=== PATIENT | male | born 1945 | race Caucasian/White ===

== ENCOUNTER 2021-12-29 21:05 | Observation (INO) | payer MEDICARE ==
--- NOTE | 2021-12-29 21:48 | ERPHSYRPT ---
- History of Present Illness Time Seen by Provider: 12/29/21 21:48 Source: patient, family Exam Limitations: no limitations Physician History: This is a 76-year-old white male patient of Dr. Tomas who was diagnosed with pancreatic cancer in October 2020. Patient also was having some renal insufficiency and saw Dr. Mccormick (quality associate) today and blood work was obtained. Patient was called because he had a very high blood sugar level over 600. Patient states that the symptoms that he has had recently is increased in thirst and frequent urination. Patient has a history of elevated cholesterol, hypothyroidism and hypertension. In addition he has a history of [id number] diabetes. He has no complaints of headache, chest pain or abdominal pain. He has had no nausea vomiting or diarrhea. Timing/Duration: today Severity: moderate Associated Symptoms: other (Thirst and increased urination) Allergies/Adverse Reactions: No Known Drug Allergies Allergy (Verified 12/29/21 21:22) Home Medications: Amlodipine Besylate 5 mg [Norvasc 5 mg] 5 mg PO DAILY 07/06/15 [History] Metoprolol Tartrate 100 mg PO DAILY 07/06/15 [History] Cholecalciferol (Vitamin D3) [Vitamin D3] 1,000 mcg PO DAILY 12/29/21 [History] Glipizide 10 mg [Glucotrol 10 MG] 10 mg PO DAILY 12/29/21 [History] Hydralazine HCl 10 mg PO DAILY 12/29/21 [History] Levothyroxine Sodium 50 Mcg [Synthroid 50 Mcg] 50 mcg PO DAILY 12/29/21 [History] Lipase/Protease/Amylase [Juarez Almendarez 6,000 Unit Capsule] 1 tab PO UD 12/29/21 [History] Magnesium Oxide [Magnesium] 250 mg PO BID 12/29/21 [History] Multivitamin 1 tab PO DAILY 12/29/21 [History] Potassium Chloride 40 meq PO TID 12/29/21 [History] Pravastatin Sodium 20 mg PO DAILY 12/29/21 [History] Prednisone 10 mg [Deltasone 10 mg] 10 mg PO DAILY 12/29/21 [History] Travel Risk - International Travel Have you traveled outside of the country in past 3 weeks: No - Coronavirus Screening Are you exhibiting any of the following symptoms?: No Close contact with a COVID-19 positive Pt in past 14-21 Days: No - Review of Systems Constitutional: No Symptoms Eyes: No Symptoms Ears, Nose, & Throat: No Symptoms Respiratory: No Symptoms Cardiac: No Symptoms Abdominal/Gastrointestinal: No Symptoms Genitourinary Symptoms: Other (Increased urination) Musculoskeletal: No Symptoms Skin: No Symptoms Neurological: No Symptoms Psychological: No Symptoms Endocrine: Polyuria, Polydipsia Hematologic/Lymphatic: No Symptoms Immunological/Allergic: No Symptoms All Other Systems: Reviewed and Negative - Past Medical History Pertinent Past Medical History: Yes Neurological History: No Pertinent History ENT History: No Pertinent History Cardiac History: High Cholesterol, Hypertension Respiratory History: Other Endocrine Medical History: Hypothyroidism Musculoskeletal History: No Pertinent History GI Medical History: No Pertinent History History: No Pertinent History Psycho-Social History: No Pertinent History Male Reproductive Disorders: No Pertinent History Other Medical History: sarcoidosis-effects his breathing takes daily prednisone 5mg - Past Surgical History Past Surgical History: Yes Neuro Surgical History: No Pertinent History Cardiac: No Pertinent History Respiratory: Other Gastrointestinal: No Pertinent History Genitourinary: No Pertinent History Musculoskeletal: No Pertinent History Male Surgical History: No Pertinent History Other Surgical History: 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 - Social History Smoking Status: Never smoker Exposure to second hand smoke: No Drug Use: none - Nursing Vital Signs Nursing Vital Signs: Initial Vital Signs Temperature 97.8 F 12/29/21 21:23 Pulse Rate 68 12/29/21 21:23 Respiratory Rate 18 12/29/21 21:23 Blood Pressure 151/88 12/29/21 21:23 O2 Sat by Pulse Oximetry 98 12/29/21 21:23 Pain Scale Pain Intensity 0 - Physical Exam General Appearance: no apparent distress, alert, thin Eye Exam: PERRL/EOMI, eyes nml inspection Ears, Nose, Throat Exam: normal ENT inspection, moist mucous membranes Neck Exam: normal inspection, non-tender, supple, full range of motion Respiratory Exam: normal breath sounds, lungs clear, airway intact, No chest tenderness, No respiratory distress Cardiovascular Exam: regular rate/rhythm, normal heart sounds, normal peripheral pulses Gastrointestinal/Abdomen Exam: soft, normal bowel sounds, No tenderness Rectal Exam: not done Back Exam: normal inspection, normal range of motion, No CVA tenderness, No vertebral tenderness Extremity Exam: normal inspection, normal range of motion, pelvis stable Neurologic Exam: alert, oriented x 3, cooperative, sheet layer II-XII nml as tested, normal mood/affect, nml cerebellar function, nml station & gait, sensation nml Skin Exam: normal color, warm, dry Lymphatic Exam: No adenopathy SpO2 Interpretation: normal O2 Delivery: Room Air - Course Nursing assessment & vital signs reviewed: Yes EKG Interpreted by Me: RATE (60), Sinus Rhythm, NORMAL AXIS, NORMAL INTERVALS, Right Bundle Branch Block, NORMAL ST-T, Other (No acute ischemic changes on today's EKG.) Ordered Tests: Active Orders 24 hr Category Date Time Status EKG-ER Only STAT Care 12/30/21 00:43 Active IV Insertion STAT Care 12/29/21 22:40 Active ABG [ARTERIAL BLOOD GASES] Stat Lab 12/30/21 00:20 Completed BMP Stat Lab 12/30/21 01:19 Completed CBC W DIFF Stat Lab 12/29/21 23:00 Completed CMP Stat Lab 12/29/21 23:00 Completed Lactic Acid Stat Lab 12/30/21 01:09 Completed Lactic Acid Urgent Lab 12/29/21 23:00 Completed POCT GLUCOSE Stat Lab 12/30/21 00:20 Completed POCT GLUCOSE Stat Lab 12/30/21 02:13 Completed UA W/RFX CULTURE Stat Lab 12/29/21 22:43 Completed Transfer Order Routine Transfer 12/30/21 Ordered Medication Summary Discontinued Medications Generic Name Dose Route Start Last Admin Trade Name Chanduq PRN Reason Stop Dose Admin Calcium Gluconate 1,000 mg 12/30/21 00:41 12/30/21 01:04 Calcium Gluconate 1000 Mg/10 Ml Vial IV 12/30/21 00:42 1,000 mg STAT ONE Administration Calcium Gluconate Confirm 12/30/21 01:03 Calcium Gluconate 1000 Mg/10 Ml Vial Administered 12/30/21 01:04 Dose 1,000 mg IV .STK-MED ONE Sodium Chloride 1,000 mls @ 999 mls/hr 12/29/21 22:40 12/29/21 23:41 Sodium Chloride 0.9% 1000 Ml IV 12/29/21 23:40 Infused .Q1H1M STA Infusion Sodium Chloride Confirm 12/29/21 22:44 Sodium Chloride 0.9% 1000 Ml Administered 12/29/21 22:45 Dose 1,000 mls @ ud .ROUTE .STK-MED ONE Sodium Chloride 1,000 mls @ 999 mls/hr 12/30/21 00:45 12/30/21 02:11 Sodium Chloride 0.9% 1000 Ml IV 12/30/21 01:45 Infused .Q1H1M STA Infusion Sodium Chloride Confirm 12/30/21 01:03 Sodium Chloride 0.9% 1000 Ml Administered 12/30/21 01:04 Dose 1,000 mls @ ud .ROUTE .STK-MED ONE Insulin Human Regular 15 unit 12/29/21 23:08 12/29/21 23:32 Insulin Regular, Human 1 Unit IV 12/29/21 23:09 15 unit STAT ONE Administration Insulin Human Regular Confirm 12/29/21 23:28 Insulin Regular, Human 1 Unit Administered 12/29/21 23:29 Dose 15 unit .ROUTE .STK-MED ONE Sodium Bicarbonate 50 meq 12/30/21 00:43 12/30/21 01:06 Sodium Bicarbonate 1 Meq/Ml 50ml Syringe IV 12/30/21 00:44 50 meq STAT ONE Administration Sodium Bicarbonate Confirm 12/30/21 01:03 Sodium Bicarbonate 1 Meq/Ml 50ml Vial Administered 12/30/21 01:04 Dose 50 meq .ROUTE .STK-MED ONE Sodium Bicarbonate Confirm 12/30/21 01:06 Sodium Bicarbonate 1 Meq/Ml 50ml Syringe Administered 12/30/21 01:07 Dose 50 meq IV .STK-MED ONE Lab/Rad Data: Laboratory Result Diagrams 12/29/21 23:00 12/30/21 01:19 Laboratory Results 12/30/21 12/30/21 12/30/21 Range/Units 02:13 01:19 01:09 WBC (4.0-10.5) x10^3/uL RBC (4.1-5.6) x10^6/uL Hgb (12.5-18.0) g/dL Hct (42-50) % MCV (78-100) fL MCH (26-32) pg MCHC (32-36) g/dL RDW (11.5-14.0) % Plt Count (150-450) x10^3/uL MPV (7.5-11.0) fL Gran % (36.0-66.0) % Immature Gran % (Auto) (0.00-0.4) % Nucleat RBC Rel Count (0.00-0.1) % Eos # (Auto) (0-0.5) x10^3/uL Immature Gran # (Auto) (0.00-0.03) x10^3u/L Absolute Lymphs (auto) (1.0-4.6) x10^3/uL Absolute Monos (auto) (0.0-1.3) x10^3/uL Absolute Nucleated RBC (0.00-0.01) x10^3u/L Lymphocytes % (24.0-44.0) % Monocytes % (0.0-12.0) % Eosinophils % (0.00-5.0) % Basophils % (0.0-0.4) % Absolute Granulocytes (1.4-6.9) x10^3/uL Basophils # (0-0.4) x10^3/uL Puncture Site pCO2 (35-45) mmHg pO2 (75-100) mmHg Base Excess (-2.0-2.0) O2 Saturation (94-100) g/dF ABG pH (7.35-7.45) ABG HCO3 (22-28) ABG O2 Sat (Measured) (95-100) % Carlitos Test A-a Gradient a/A Ratio Hemoglobin Carboxyhemoglobin (0.0-6.9) % THgb Methemoglobin (1.4-1.5) % Temperature C POC O2 Flow Rate % Sodium 134 L D (137-145) mmol/L Potassium 4.7 (3.5-5.1) mmol/L Chloride 109 H (98-107) mmol/L Carbon Dioxide 16 L* (22-30) mmol/L Anion Gap 15.0 (5-15) MEQ/L BUN 29 H (9-20) mg/dL Creatinine 1.43 H (0.66-1.25) mg/dL Estimated GFR 51.1 ML/MIN Glucose 344 H (74-106) mg/dL POC Glucometer 282 H (74 to 106) mg/dL Lactic Acid 4.5 H (0.4-2.0) Calcium 9.6 (8.4-10.2) mg/dL Total Bilirubin (0.2-1.3) mg/dL AST (17-59) U/L ALT (0-50) U/L Alkaline Phosphatase (38-126) U/L Serum Total Protein (6.3-8.2) g/dL Albumin (3.5-5.0) g/dL Urinalys Dipstick Clnc Urine Color (YELLOW) Urine Appearance (CLEAR) Urine pH (5-6) Ur Specific [place] (1.005-1.025) POC Urine Protein Conf (Negative) Urine Ketones (NEGATIVE) Urine Nitrite (NEGATIVE) Urine Bilirubin (NEGATIVE) Urine Urobilinogen (0-1) mg/dL Urine Leukocytes (NEGATIVE) Urine WBC (Auto) (0-5) /HPF Urine RBC (Auto) (0-2) /HPF U Epithel Cells (Auto) (FEW) /HPF Urine Bacteria (Auto) (NEGATIVE) /HPF Urine RBC (0-5) Jose Alfredo/ul Ur Culture Indicated? Urine Glucose (NEGATIVE) mg/dL Influenza Type A Ag (NEGATIVE) Influenza Type B Ag (NEGATIVE) RSV (PCR) (Negative) SARS-CoV-2 (PCR) (NEGATIVE) Slides for Path Review 12/30/21 12/30/21 12/30/21 Range/Units 00:34 00:20 00:20 WBC (4.0-10.5) x10^3/uL RBC (4.1-5.6) x10^6/uL Hgb (12.5-18.0) g/dL Hct (42-50) % MCV (78-100) fL MCH (26-32) pg MCHC (32-36) g/dL RDW (11.5-14.0) % Plt Count (150-450) x10^3/uL MPV (7.5-11.0) fL Gran % (36.0-66.0) % Immature Gran % (Auto) (0.00-0.4) % Nucleat RBC Rel Count (0.00-0.1) % Eos # (Auto) (0-0.5) x10^3/uL Immature Gran # (Auto) (0.00-0.03) x10^3u/L Absolute Lymphs (auto) (1.0-4.6) x10^3/uL Absolute Monos (auto) (0.0-1.3) x10^3/uL Absolute Nucleated RBC (0.00-0.01) x10^3u/L Lymphocytes % (24.0-44.0) % Monocytes % (0.0-12.0) % Eosinophils % (0.00-5.0) % Basophils % (0.0-0.4) % Absolute Granulocytes (1.4-6.9) x10^3/uL Basophils # (0-0.4) x10^3/uL Puncture Site RIGHT BRACHIAL pCO2 22 L (35-45) mmHg pO2 119 H (75-100) mmHg Base Excess -14.8 L (-2.0-2.0) O2 Saturation 97.5 (94-100) g/dF ABG pH 7.27 L (7.35-7.45) ABG HCO3 10.1 L* (22-28) ABG O2 Sat (Measured) 98.7 (95-100) % Carlitos Test NOT APPLICABLE A-a Gradient 3 a/A Ratio 0.98 Hemoglobin 12.8 Carboxyhemoglobin 0.4 (0.0-6.9) % THgb Methemoglobin 0.8 L (1.4-1.5) % Temperature 37.0 C POC O2 Flow Rate 21 % Sodium (137-145) mmol/L Potassium 4.5 (3.5-5.1) mmol/L Chloride (98-107) mmol/L Carbon Dioxide (22-30) mmol/L Anion Gap (5-15) MEQ/L BUN (9-20) mg/dL Creatinine (0.66-1.25) mg/dL Estimated GFR ML/MIN Glucose (74-106) mg/dL POC Glucometer 477 H (74 to 106) mg/dL Lactic Acid (0.4-2.0) Calcium (8.4-10.2) mg/dL Total Bilirubin (0.2-1.3) mg/dL AST (17-59) U/L ALT (0-50) U/L Alkaline Phosphatase (38-126) U/L Serum Total Protein (6.3-8.2) g/dL Albumin (3.5-5.0) g/dL Urinalys Dipstick Clnc Urine Color (YELLOW) Urine Appearance (CLEAR) Urine pH (5-6) Ur Specific [place] (1.005-1.025) POC Urine Protein Conf (Negative) Urine Ketones (NEGATIVE) Urine Nitrite (NEGATIVE) Urine Bilirubin (NEGATIVE) Urine Urobilinogen (0-1) mg/dL Urine Leukocytes (NEGATIVE) Urine WBC (Auto) (0-5) /HPF Urine RBC (Auto) (0-2) /HPF U Epithel Cells (Auto) (FEW) /HPF Urine Bacteria (Auto) (NEGATIVE) /HPF Urine RBC (0-5) Jose Alfredo/ul Ur Culture Indicated? Urine Glucose (NEGATIVE) mg/dL Influenza Type A Ag NEGATIVE (NEGATIVE) Influenza Type B Ag NEGATIVE (NEGATIVE) RSV (PCR) NEGATIVE (Negative) SARS-CoV-2 (PCR) NEGATIVE (NEGATIVE) Slides for Path Review 12/29/21 12/29/21 12/29/21 Range/Units 23:00 23:00 23:00 WBC 8.1 (4.0-10.5) x10^3/uL RBC 4.12 (4.1-5.6) x10^6/uL Hgb 13.0 (12.5-18.0) g/dL Hct 38.8 L (42-50) % MCV 94.2 (78-100) fL MCH 31.6 (26-32) pg MCHC 33.5 (32-36) g/dL RDW 14.4 H (11.5-14.0) % Plt Count 195 (150-450) x10^3/uL MPV 11.3 H (7.5-11.0) fL Gran % 91.2 H (36.0-66.0) % Immature Gran % (Auto) 0.5 H (0.00-0.4) % Nucleat RBC Rel Count 0.0 (0.00-0.1) % Eos # (Auto) 0.01 (0-0.5) x10^3/uL Immature Gran # (Auto) 0.04 H (0.00-0.03) x10^3u/L Absolute Lymphs (auto) 0.32 L (1.0-4.6) x10^3/uL Absolute Monos (auto) 0.33 (0.0-1.3) x10^3/uL Absolute Nucleated RBC 0.00 (0.00-0.01) x10^3u/L Lymphocytes % 4.0 L (24.0-44.0) % Monocytes % 4.1 (0.0-12.0) % Eosinophils % 0.1 (0.00-5.0) % Basophils % 0.1 (0.0-0.4) % Absolute Granulocytes 7.38 H (1.4-6.9) x10^3/uL Basophils # 0.01 (0-0.4) x10^3/uL Puncture Site pCO2 (35-45) mmHg pO2 (75-100) mmHg Base Excess (-2.0-2.0) O2 Saturation (94-100) g/dF ABG pH (7.35-7.45) ABG HCO3 (22-28) ABG O2 Sat (Measured) (95-100) % Carlitos Test A-a Gradient a/A Ratio Hemoglobin Carboxyhemoglobin (0.0-6.9) % THgb Methemoglobin (1.4-1.5) % Temperature C POC O2 Flow Rate % Sodium 127 L (137-145) mmol/L Potassium 5.8 H (3.5-5.1) mmol/L Chloride 103 (98-107) mmol/L Carbon Dioxide 11 L* (22-30) mmol/L Anion Gap 17.6 H (5-15) MEQ/L BUN 30 H (9-20) mg/dL Creatinine 1.61 H (0.66-1.25) mg/dL Estimated GFR 44.6 ML/MIN Glucose 706 H* (74-106) mg/dL POC Glucometer (74 to 106) mg/dL Lactic Acid 3.8 H (0.4-2.0) Calcium 8.7 (8.4-10.2) mg/dL Total Bilirubin 0.60 (0.2-1.3) mg/dL AST 42 (17-59) U/L ALT 78 H (0-50) U/L Alkaline Phosphatase 132 H (38-126) U/L Serum Total Protein 6.9 (6.3-8.2) g/dL Albumin 3.8 (3.5-5.0) g/dL Urinalys Dipstick Clnc Urine Color (YELLOW) Urine Appearance (CLEAR) Urine pH (5-6) Ur Specific [place] (1.005-1.025) POC Urine Protein Conf (Negative) Urine Ketones (NEGATIVE) Urine Nitrite (NEGATIVE) Urine Bilirubin (NEGATIVE) Urine Urobilinogen (0-1) mg/dL Urine Leukocytes (NEGATIVE) Urine WBC (Auto) (0-5) /HPF Urine RBC (Auto) (0-2) /HPF U Epithel Cells (Auto) (FEW) /HPF Urine Bacteria (Auto) (NEGATIVE) /HPF Urine RBC (0-5) Jose Alfredo/ul Ur Culture Indicated? Urine Glucose (NEGATIVE) mg/dL Influenza Type A Ag (NEGATIVE) Influenza Type B Ag (NEGATIVE) RSV (PCR) (Negative) SARS-CoV-2 (PCR) (NEGATIVE) Slides for Path Review YES 12/29/21 Range/Units 22:43 WBC (4.0-10.5) x10^3/uL RBC (4.1-5.6) x10^6/uL Hgb (12.5-18.0) g/dL Hct (42-50) % MCV (78-100) fL MCH (26-32) pg MCHC (32-36) g/dL RDW (11.5-14.0) % Plt Count (150-450) x10^3/uL MPV (7.5-11.0) fL Gran % (36.0-66.0) % Immature Gran % (Auto) (0.00-0.4) % Nucleat RBC Rel Count (0.00-0.1) % Eos # (Auto) (0-0.5) x10^3/uL Immature Gran # (Auto) (0.00-0.03) x10^3u/L Absolute Lymphs (auto) (1.0-4.6) x10^3/uL Absolute Monos (auto) (0.0-1.3) x10^3/uL Absolute Nucleated RBC (0.00-0.01) x10^3u/L Lymphocytes % (24.0-44.0) % Monocytes % (0.0-12.0) % Eosinophils % (0.00-5.0) % Basophils % (0.0-0.4) % Absolute Granulocytes (1.4-6.9) x10^3/uL Basophils # (0-0.4) x10^3/uL Puncture Site pCO2 (35-45) mmHg pO2 (75-100) mmHg Base Excess (-2.0-2.0) O2 Saturation (94-100) g/dF ABG pH (7.35-7.45) ABG HCO3 (22-28) ABG O2 Sat (Measured) (95-100) % Carlitos Test A-a Gradient a/A Ratio Hemoglobin Carboxyhemoglobin (0.0-6.9) % THgb Methemoglobin (1.4-1.5) % Temperature C POC O2 Flow Rate % Sodium (137-145) mmol/L Potassium (3.5-5.1) mmol/L Chloride (98-107) mmol/L Carbon Dioxide (22-30) mmol/L Anion Gap (5-15) MEQ/L BUN (9-20) mg/dL Creatinine (0.66-1.25) mg/dL Estimated GFR ML/MIN Glucose (74-106) mg/dL POC Glucometer (74 to 106) mg/dL Lactic Acid (0.4-2.0) Calcium (8.4-10.2) mg/dL Total Bilirubin (0.2-1.3) mg/dL AST (17-59) U/L ALT (0-50) U/L Alkaline Phosphatase (38-126) U/L Serum Total Protein (6.3-8.2) g/dL Albumin (3.5-5.0) g/dL Urinalys Dipstick Clnc MAIN LAB Urine Color YELLOW (YELLOW) Urine Appearance CLEAR (CLEAR) Urine pH 6.0 (5-6) Ur Specific [place] 1.015 (1.005-1.025) POC Urine Protein Conf NEGATIVE (Negative) Urine Ketones NEGATIVE (NEGATIVE) Urine Nitrite NEGATIVE (NEGATIVE) Urine Bilirubin NEGATIVE (NEGATIVE) Urine Urobilinogen 0.2 (0-1) mg/dL Urine Leukocytes NEGATIVE (NEGATIVE) Urine WBC (Auto) NONE (0-5) /HPF Urine RBC (Auto) NONE (0-2) /HPF U Epithel Cells (Auto) NONE (FEW) /HPF Urine Bacteria (Auto) NONE (NEGATIVE) /HPF Urine RBC NEGATIVE (0-5) Jose Alfredo/ul Ur Culture Indicated? NO Urine Glucose 500 (NEGATIVE) mg/dL Influenza Type A Ag (NEGATIVE) Influenza Type B Ag (NEGATIVE) RSV (PCR) (Negative) SARS-CoV-2 (PCR) (NEGATIVE) Slides for Path Review - Progress Progress: improved, re-examined Progress Note: 07/16/22 03:50 Medical decision making: This patient is hyperglycemia versus borderline ea rly/mild DKA. Patient needs continued intravenous fluids. We will recheck labs this morning including repeat lactic acid level at 5 AM, repeat CBC, CMP and provide the patient with sliding scale regular insulin. I will also order a repeat ABG for this morning. I spoke with Dr. Black who agrees with this plan. She wants me to add a BNP to this morning's labs 12/30/21 03:51 Discussed with : Topher Counseled pt/family regarding: lab results, diagnosis - Departure Departure Disposition: In-patient Admission Clinical Impression: DKA (diabetic ketoacidosis) Condition: Stable Critical Care Time: Yes Critical Care Time(excluding separately billable procedures): Critical 30-74 mins (30 minutes) Referrals: FALLON TOMAS [Primary Care Provider] - Follow up/PCP as directed
[2021-12-29] MEDS ORDERED: Sodium Chloride 0.9% 1000 ML 1,000 ML IV STA (22:40)
[2021-12-29] MEDS ORDERED: Sodium Chloride 0.9% 1000 ML 1,000 ML ONE (22:44)
[2021-12-29 23:08] LABS: Absolute Neutrophil Ct (ANC) 7.38 x10^3/uL (1.4-6.9); Basophil (Absolute #) 0.01 x10^3/uL (0-0.4); Eosinophil % 0.1 % (0.00-5.0); Eosinophil (Absolute #) 0.01 x10^3/uL (0-0.5); Hematocrit 38.8 % (42-50); Lymphocyte (Absolute #) 0.32 x10^3/uL (1.0-4.6); Mean Cell Volume 94.2 fL (78-100); Mean Corpuscular Hemoglobin 31.6 pg (26-32); Mean Corpuscular Hgb Concent. 33.5 g/dL (32-36); Mean Platelet Volume 11.3 fL (7.5-11.0); Monocyte (Absolute #) 0.33 x10^3/uL (0.0-1.3); Monocytes % 4.1 % (0.0-12.0); Neutrophil % 91.2 % (36.0-66.0); Platelet Count 195 x10^3/uL (150-450); Red Blood Count 4.12 x10^6/uL (4.1-5.6); Red Cell Distribution Width 14.4 % (11.5-14.0); White Blood Count 8.1 x10^3/uL (4.0-10.5)
[2021-12-29] MEDS ORDERED: HUMULIN R IV ONE (23:08)
[2021-12-29 23:25] LABS: ALBUMIN 3.8 g/dL (3.5-5.0); ANION GAP 17.6 MEQ/L (5-15); BILIRUBIN,TOTAL 0.6 mg/dL (0.2-1.3); Calcium 8.7 mg/dL (8.4-10.2); Creatinine 1 1.61 mg/dL (0.66-1.25); EST GLOMERULAR FILTRATION RATE 44.6 ML/MIN; Potassium 5.8 mmol/L (3.5-5.1); Total Protein 6.9 g/dL (6.3-8.2)
[2021-12-29] MEDS ORDERED: HUMULIN R ONE (23:28)
[2021-12-29 23:39] LABS: Appearance CLEAR (CLEAR); Bilirubin NEGATIVE (NEGATIVE); Dipstick done @ ? MAIN LAB; Glucose 500 mg/dL (NEGATIVE); Ketones NEGATIVE (NEGATIVE); Nitrite NEGATIVE (NEGATIVE); Protein,Urine Dip NEGATIVE (Negative); RBC NEGATIVE Ery/ul (0-5); Specific Gravity 1.015 (1.005-1.025); Urobilinogen 0.2 mg/dL (0-1)
[2021-12-29 23:42] LABS: Urine Cultured Indicated? NO
[2021-12-30 00:18] LABS: Slide Review 1 YES
[2021-12-30 00:32] LABS: A-aADO2 3; ABG HEMOGLOBIN 12.8; ABG POTASSIUM 4.5 (3.5-5.1); ABG SITE RIGHT BRACHIAL; ARTERIAL BLD GAS O2 SATURATION 98.7 % (95-100); ARTERIAL BLOOD GAS BASE EXCESS -14.8 (-2.0-2.0); ARTERIAL BLOOD GAS FIO2 21 %; ARTERIAL BLOOD GAS PCO2 22 mmHg (35-45); ARTERIAL BLOOD GAS PO2 119 mmHg (75-100); ARTERIAL BLOOD GAS pH 7.27 (7.35-7.45); CARBOXYHEMOGLOBIN 0.4 % THgb (0.0-6.9); HCO3- 10.1 (22-28); HGB O2 SAT 97.5 g/dF (94-100); Methhemoglobin 0.8 % (1.4-1.5)
[2021-12-30] MEDS ORDERED: Calcium Gluconate 10% 1000 MG IV ONE ×2 (00:41→01:03)
[2021-12-30] MEDS ORDERED: SODIUM BICARBONATE 50 MEQ/50 ML ABBOJECT IV ONE ×2 (00:43→01:06)
[2021-12-30] MEDS ORDERED: Sodium Chloride 0.9% 1000 ML 1,000 ML IV STA (00:45)
[2021-12-30] MEDS ORDERED: Sodium Bicarbonate 50 MEQ/50 ML VIAL ONE (01:03)
[2021-12-30] MEDS ORDERED: Sodium Chloride 0.9% 1000 ML 1,000 ML ONE (01:03)
[2021-12-30 01:12] LABS: INFLUENZA A NEGATIVE (NEGATIVE); INFLUENZA B NEGATIVE (NEGATIVE); RESPIRATORY SYNCTIAL VIRUS NEGATIVE (Negative); SARS-CoV-2 Xpert Express NEGATIVE (NEGATIVE)
[2021-12-30 01:54] LABS: Calcium 9.6 mg/dL (8.4-10.2); Creatinine 1 1.43 mg/dL (0.66-1.25); EST GLOMERULAR FILTRATION RATE 51.1 ML/MIN; Potassium 4.7 mmol/L (3.5-5.1)
[2021-12-30] MEDS ORDERED: TYLENOL 325 MG PO PRN (04:39)
[2021-12-30] MEDS ORDERED: Zofran 4 MG/2 ML VIAL IV PRN (04:39)
[2021-12-30] MEDS: Sodium Chloride 0.9% 1000 ML 1,000 ML IV SCH ×3 (04:58→23:47)
[2021-12-30 05:06] LABS: Basophil (Absolute #) 0.01 x10^3/uL (0-0.4); Eosinophil % 0.2 % (0.00-5.0); Eosinophil (Absolute #) 0.02 x10^3/uL (0-0.5); Hematocrit 37.5 % (42-50); Hemoglobin 12.5 g/dL (12.5-18.0); Lymphocyte (Absolute #) 0.73 x10^3/uL (1.0-4.6); Lymphocytes % 8.2 % (24.0-44.0); Mean Cell Volume 93.5 fL (78-100); Mean Corpuscular Hemoglobin 31.2 pg (26-32); Mean Corpuscular Hgb Concent. 33.3 g/dL (32-36); Mean Platelet Volume 11.6 fL (7.5-11.0); Monocyte (Absolute #) 0.68 x10^3/uL (0.0-1.3); Monocytes % 7.7 % (0.0-12.0); Neutrophil % 83.3 % (36.0-66.0); Platelet Count 182 x10^3/uL (150-450); Red Blood Count 4.01 x10^6/uL (4.1-5.6); Red Cell Distribution Width 14.5 % (11.5-14.0); White Blood Count 8.9 x10^3/uL (4.0-10.5)
[2021-12-30 05:30] LABS: ALBUMIN 3.6 g/dL (3.5-5.0); ANION GAP 13.6 MEQ/L (5-15); BILIRUBIN,TOTAL 0.7 mg/dL (0.2-1.3); Calcium 8.8 mg/dL (8.4-10.2); Creatinine 1 1.3 mg/dL (0.66-1.25); Potassium 4.7 mmol/L (3.5-5.1); Total Protein 6.8 g/dL (6.3-8.2)
--- NOTE | 2021-12-30 09:43 | PCM.HP ---
History of Present Illness - Chief Complaint Chief Complaint: DKA History of Present Illness: is a 76 year old male patient of Dr Pedersen who sent patient to ER due to clinic visit labs came back with glucose >600. Patient states that Dr Tomas increased Prednisone from 10mg to 20mg 3 weeks ago treating Sarcoidosis. C/O fatigue, increased urination and thirst ,no N/V/D . PMHx includes HTN,HLD,NIDDM2,CKD,Hypothyroid.He was dg with pancreatic cancer OCTOBER 2020 and completed chemotherapy MAY 2021.Patient is admitted to med surg for treatment. Medications & Allergies Home Medications: Home Medication List Amlodipine Besylate 5 mg [Norvasc 5 mg] 5 mg PO DAILY 07/06/15 [History Confirmed 12/30/21] Metoprolol Tartrate 100 mg PO DAILY 07/06/15 [History Confirmed 12/30/21] Cholecalciferol (Vitamin D3) [Vitamin D3] 1,000 mcg PO DAILY 12/29/21 [History Confirmed 12/30/21] Glipizide 10 mg [Glucotrol 10 MG] 10 mg PO DAILY 12/29/21 [History Confirmed 12/30/21] Hydralazine HCl 10 mg PO DAILY 12/29/21 [History Confirmed 12/30/21] Levothyroxine Sodium 50 Mcg [Synthroid 50 Mcg] 50 mcg PO DAILY 12/29/21 [History Confirmed 12/30/21] Lipase/Protease/Amylase [Juarez Almendarez 6,000 Unit Capsule] 1 tab PO UD 12/29/21 [History Confirmed 12/30/21] Magnesium Oxide [Magnesium] 250 mg PO BID 12/29/21 [History Confirmed 12/30/21] Multivitamin 1 tab PO DAILY 12/29/21 [History Confirmed 12/30/21] Potassium Chloride 40 meq PO TID 12/29/21 [History Confirmed 12/30/21] Pravastatin Sodium 20 mg PO DAILY 12/29/21 [History Confirmed 12/30/21] Prednisone 10 mg [Deltasone 10 mg] 20 mg PO DAILY 12/29/21 [History Confirmed 12/30/21] Allergies/Adverse Reactions: Allergies Allergy/AdvReac Type Severity Reaction Status Date / Time No Known Drug Allergies Allergy Verified 12/29/21 21:22 - Past Medical History Past Medical History: Yes Neurological History: No Pertinent History ENT History: No Pertinent History Cardiac History: High Cholesterol, Hypertension Respiratory History: Other Endocrine Medical History: Hypothyroidism Musculoskelatal History: No Pertinent History GI Medical History: No Pertinent History History: No Pertinent History Pyscho-Social History: No Pertinent History Male Reproductive Disorders: No Pertinent History Comment: 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 - Social History Smoking Status: Never smoker Exposure to second hand smoke: No Alcohol: None Drug Use: none - Physical Exam Vital Signs: Vital Signs - 24 hr Temp Pulse Resp BP Pulse Ox 12/30/21 08:00 97.7 F 48 L 13 143/76 99 12/30/21 05:37 95 12/30/21 05:09 97.5 F 52 L 16 155/81 97 12/30/21 04:00 58 L 16 144/85 99 12/30/21 03:00 56 L 115/77 98 12/30/21 02:00 56 L 18 122/77 99 12/30/21 01:05 60 18 114/77 99 12/30/21 01:00 66 114/77 100 12/30/21 00:00 67 133/76 97 12/29/21 23:00 65 141/84 99 12/29/21 22:07 64 16 135/85 98 12/29/21 21:23 97.8 F 68 18 151/88 98 General Appearance: no apparent distress (resting in bed) Neurologic Exam: alert, oriented x 3, cooperative, normal mood/affect Eye Exam: eyes nml inspection Ears, Nose, Throat Exam: normal ENT inspection Neck Exam: normal inspection Respiratory Exam: other (good aeration right lung but diminished left base,no rales or ronchi or wheeze.) Cardiovascular Exam: regular rate/rhythm Gastrointestinal/Abdomen Exam: soft (nontender) Rectal Exam: not done Back Exam: normal inspection Extremity Exam: normal inspection Skin Exam: warm, dry (dusky color) Results - Labs Lab/Micro Results: Lab Results-Last 24 Hours 12/29/21 12/29/21 12/29/21 Range/Units 22:43 23:00 23:00 WBC 8.1 (4.0-10.5) x10^3/uL RBC 4.12 (4.1-5.6) x10^6/uL Hgb 13.0 (12.5-18.0) g/dL Hct 38.8 L (42-50) % MCV 94.2 (78-100) fL MCH 31.6 (26-32) pg MCHC 33.5 (32-36) g/dL RDW 14.4 H (11.5-14.0) % Plt Count 195 (150-450) x10^3/uL MPV 11.3 H (7.5-11.0) fL Gran % 91.2 H (36.0-66.0) % Immature Gran % (Auto) 0.5 H (0.00-0.4) % Nucleat RBC Rel Count 0.0 (0.00-0.1) % Eos # (Auto) 0.01 (0-0.5) x10^3/uL Immature Gran # (Auto) 0.04 H (0.00-0.03) x10^3u/L Absolute Lymphs (auto) 0.32 L (1.0-4.6) x10^3/uL Absolute Monos (auto) 0.33 (0.0-1.3) x10^3/uL Absolute Nucleated RBC 0.00 (0.00-0.01) x10^3u/L Lymphocytes % 4.0 L (24.0-44.0) % Monocytes % 4.1 (0.0-12.0) % Eosinophils % 0.1 (0.00-5.0) % Basophils % 0.1 (0.0-0.4) % Absolute Granulocytes 7.38 H (1.4-6.9) x10^3/uL Basophils # 0.01 (0-0.4) x10^3/uL Puncture Site pCO2 (35-45) mmHg pO2 (75-100) mmHg Base Excess (-2.0-2.0) O2 Saturation (94-100) g/dF ABG pH (7.35-7.45) ABG HCO3 (22-28) ABG O2 Sat (Measured) (95-100) % Carlitos Test A-a Gradient a/A Ratio Hemoglobin Carboxyhemoglobin (0.0-6.9) % THgb Methemoglobin (1.4-1.5) % Temperature C POC O2 Flow Rate % Sodium 127 L (137-145) mmol/L Potassium 5.8 H (3.5-5.1) mmol/L Chloride 103 (98-107) mmol/L Carbon Dioxide 11 L* (22-30) mmol/L Anion Gap 17.6 H (5-15) MEQ/L BUN 30 H (9-20) mg/dL Creatinine 1.61 H (0.66-1.25) mg/dL Estimated GFR 44.6 ML/MIN Glucose 706 H* (74-106) mg/dL POC Glucometer (74 to 106) mg/dL Lactic Acid (0.4-2.0) Calcium 8.7 (8.4-10.2) mg/dL Total Bilirubin 0.60 (0.2-1.3) mg/dL AST 42 (17-59) U/L ALT 78 H (0-50) U/L Alkaline Phosphatase 132 H (38-126) U/L NT-Pro-B Natriuret Pep (0-1800) pg/mL Serum Total Protein 6.9 (6.3-8.2) g/dL Albumin 3.8 (3.5-5.0) g/dL Urinalys Dipstick Clnc MAIN LAB Urine Color YELLOW (YELLOW) Urine Appearance CLEAR (CLEAR) Urine pH 6.0 (5-6) Ur Specific Forks 1.015 (1.005-1.025) POC Urine Protein Conf NEGATIVE (Negative) Urine Ketones NEGATIVE (NEGATIVE) Urine Nitrite NEGATIVE (NEGATIVE) Urine Bilirubin NEGATIVE (NEGATIVE) Urine Urobilinogen 0.2 (0-1) mg/dL Urine Leukocytes NEGATIVE (NEGATIVE) Urine WBC (Auto) NONE (0-5) /HPF Urine RBC (Auto) NONE (0-2) /HPF U Epithel Cells (Auto) NONE (FEW) /HPF Urine Bacteria (Auto) NONE (NEGATIVE) /HPF Urine RBC NEGATIVE (0-5) Jose Alfredo/ul Ur Culture Indicated? NO Urine Glucose 500 (NEGATIVE) mg/dL Influenza Type A Ag (NEGATIVE) Influenza Type B Ag (NEGATIVE) RSV (PCR) (Negative) SARS-CoV-2 (PCR) (NEGATIVE) Slides for Path Review YES 12/29/21 12/30/21 12/30/21 Range/Units 23:00 00:20 00:20 WBC (4.0-10.5) x10^3/uL RBC (4.1-5.6) x10^6/uL Hgb (12.5-18.0) g/dL Hct (42-50) % MCV (78-100) fL MCH (26-32) pg MCHC (32-36) g/dL RDW (11.5-14.0) % Plt Count (150-450) x10^3/uL MPV (7.5-11.0) fL Gran % (36.0-66.0) % Immature Gran % (Auto) (0.00-0.4) % Nucleat RBC Rel Count (0.00-0.1) % Eos # (Auto) (0-0.5) x10^3/uL Immature Gran # (Auto) (0.00-0.03) x10^3u/L Absolute Lymphs (auto) (1.0-4.6) x10^3/uL Absolute Monos (auto) (0.0-1.3) x10^3/uL Absolute Nucleated RBC (0.00-0.01) x10^3u/L Lymphocytes % (24.0-44.0) % Monocytes % (0.0-12.0) % Eosinophils % (0.00-5.0) % Basophils % (0.0-0.4) % Absolute Granulocytes (1.4-6.9) x10^3/uL Basophils # (0-0.4) x10^3/uL Puncture Site RIGHT BRACHIAL pCO2 22 L (35-45) mmHg pO2 119 H (75-100) mmHg Base Excess -14.8 L (-2.0-2.0) O2 Saturation 97.5 (94-100) g/dF ABG pH 7.27 L (7.35-7.45) ABG HCO3 10.1 L* (22-28) ABG O2 Sat (Measured) 98.7 (95-100) % Carlitos Test NOT APPLICABLE A-a Gradient 3 a/A Ratio 0.98 Hemoglobin 12.8 Carboxyhemoglobin 0.4 (0.0-6.9) % THgb Methemoglobin 0.8 L (1.4-1.5) % Temperature 37.0 C POC O2 Flow Rate 21 % Sodium (137-145) mmol/L Potassium 4.5 (3.5-5.1) mmol/L Chloride (98-107) mmol/L Carbon Dioxide (22-30) mmol/L Anion Gap (5-15) MEQ/L BUN (9-20) mg/dL Creatinine (0.66-1.25) mg/dL Estimated GFR ML/MIN Glucose (74-106) mg/dL POC Glucometer 477 H (74 to 106) mg/dL Lactic Acid 3.8 H (0.4-2.0) Calcium (8.4-10.2) mg/dL Total Bilirubin (0.2-1.3) mg/dL AST (17-59) U/L ALT (0-50) U/L Alkaline Phosphatase (38-126) U/L NT-Pro-B Natriuret Pep (0-1800) pg/mL Serum Total Protein (6.3-8.2) g/dL Albumin (3.5-5.0) g/dL Urinalys Dipstick Clnc Urine Color (YELLOW) Urine Appearance (CLEAR) Urine pH (5-6) Ur Specific Forks (1.005-1.025) POC Urine Protein Conf (Negative) Urine Ketones (NEGATIVE) Urine Nitrite (NEGATIVE) Urine Bilirubin (NEGATIVE) Urine Urobilinogen (0-1) mg/dL Urine Leukocytes (NEGATIVE) Urine WBC (Auto) (0-5) /HPF Urine RBC (Auto) (0-2) /HPF U Epithel Cells (Auto) (FEW) /HPF Urine Bacteria (Auto) (NEGATIVE) /HPF Urine RBC (0-5) Jose Alfredo/ul Ur Culture Indicated? Urine Glucose (NEGATIVE) mg/dL Influenza Type A Ag (NEGATIVE) Influenza Type B Ag (NEGATIVE) RSV (PCR) (Negative) SARS-CoV-2 (PCR) (NEGATIVE) Slides for Path Review 12/30/21 12/30/21 12/30/21 Range/Units 00:34 01:09 01:19 WBC (4.0-10.5) x10^3/uL RBC (4.1-5.6) x10^6/uL Hgb (12.5-18.0) g/dL Hct (42-50) % MCV (78-100) fL MCH (26-32) pg MCHC (32-36) g/dL RDW (11.5-14.0) % Plt Count (150-450) x10^3/uL MPV (7.5-11.0) fL Gran % (36.0-66.0) % Immature Gran % (Auto) (0.00-0.4) % Nucleat RBC Rel Count (0.00-0.1) % Eos # (Auto) (0-0.5) x10^3/uL Immature Gran # (Auto) (0.00-0.03) x10^3u/L Absolute Lymphs (auto) (1.0-4.6) x10^3/uL Absolute Monos (auto) (0.0-1.3) x10^3/uL Absolute Nucleated RBC (0.00-0.01) x10^3u/L Lymphocytes % (24.0-44.0) % Monocytes % (0.0-12.0) % Eosinophils % (0.00-5.0) % Basophils % (0.0-0.4) % Absolute Granulocytes (1.4-6.9) x10^3/uL Basophils # (0-0.4) x10^3/uL Puncture Site pCO2 (35-45) mmHg pO2 (75-100) mmHg Base Excess (-2.0-2.0) O2 Saturation (94-100) g/dF ABG pH (7.35-7.45) ABG HCO3 (22-28) ABG O2 Sat (Measured) (95-100) % Carlitos Test A-a Gradient a/A Ratio Hemoglobin Carboxyhemoglobin (0.0-6.9) % THgb Methemoglobin (1.4-1.5) % Temperature C POC O2 Flow Rate % Sodium 134 L D (137-145) mmol/L Potassium 4.7 (3.5-5.1) mmol/L Chloride 109 H (98-107) mmol/L Carbon Dioxide 16 L* (22-30) mmol/L Anion Gap 15.0 (5-15) MEQ/L BUN 29 H (9-20) mg/dL Creatinine 1.43 H (0.66-1.25) mg/dL Estimated GFR 51.1 ML/MIN Glucose 344 H (74-106) mg/dL POC Glucometer (74 to 106) mg/dL Lactic Acid 4.5 H (0.4-2.0) Calcium 9.6 (8.4-10.2) mg/dL Total Bilirubin (0.2-1.3) mg/dL AST (17-59) U/L ALT (0-50) U/L Alkaline Phosphatase (38-126) U/L NT-Pro-B Natriuret Pep (0-1800) pg/mL Serum Total Protein (6.3-8.2) g/dL Albumin (3.5-5.0) g/dL Urinalys Dipstick Clnc Urine Color (YELLOW) Urine Appearance (CLEAR) Urine pH (5-6) Ur Specific Forks (1.005-1.025) POC Urine Protein Conf (Negative) Urine Ketones (NEGATIVE) Urine Nitrite (NEGATIVE) Urine Bilirubin (NEGATIVE) Urine Urobilinogen (0-1) mg/dL Urine Leukocytes (NEGATIVE) Urine WBC (Auto) (0-5) /HPF Urine RBC (Auto) (0-2) /HPF U Epithel Cells (Auto) (FEW) /HPF Urine Bacteria (Auto) (NEGATIVE) /HPF Urine RBC (0-5) Jose Alfredo/ul Ur Culture Indicated? Urine Glucose (NEGATIVE) mg/dL Influenza Type A Ag NEGATIVE (NEGATIVE) Influenza Type B Ag NEGATIVE (NEGATIVE) RSV (PCR) NEGATIVE (Negative) SARS-CoV-2 (PCR) NEGATIVE (NEGATIVE) Slides for Path Review 12/30/21 12/30/21 12/30/21 Range/Units 02:13 05:00 05:00 WBC 8.9 (4.0-10.5) x10^3/uL RBC 4.01 L (4.1-5.6) x10^6/uL Hgb 12.5 (12.5-18.0) g/dL Hct 37.5 L (42-50) % MCV 93.5 (78-100) fL MCH 31.2 (26-32) pg MCHC 33.3 (32-36) g/dL RDW 14.5 H (11.5-14.0) % Plt Count 182 (150-450) x10^3/uL MPV 11.6 H (7.5-11.0) fL Gran % 83.3 H (36.0-66.0) % Immature Gran % (Auto) 0.5 H (0.00-0.4) % Nucleat RBC Rel Count 0.0 (0.00-0.1) % Eos # (Auto) 0.02 (0-0.5) x10^3/uL Immature Gran # (Auto) 0.04 H (0.00-0.03) x10^3u/L Absolute Lymphs (auto) 0.73 L (1.0-4.6) x10^3/uL Absolute Monos (auto) 0.68 (0.0-1.3) x10^3/uL Absolute Nucleated RBC 0.00 (0.00-0.01) x10^3u/L Lymphocytes % 8.2 L (24.0-44.0) % Monocytes % 7.7 (0.0-12.0) % Eosinophils % 0.2 (0.00-5.0) % Basophils % 0.1 (0.0-0.4) % Absolute Granulocytes 7.40 H (1.4-6.9) x10^3/uL Basophils # 0.01 (0-0.4) x10^3/uL Puncture Site pCO2 (35-45) mmHg pO2 (75-100) mmHg Base Excess (-2.0-2.0) O2 Saturation (94-100) g/dF ABG pH (7.35-7.45) ABG HCO3 (22-28) ABG O2 Sat (Measured) (95-100) % Carlitos Test A-a Gradient a/A Ratio Hemoglobin Carboxyhemoglobin (0.0-6.9) % THgb Methemoglobin (1.4-1.5) % Temperature C POC O2 Flow Rate % Sodium 133 L (137-145) mmol/L Potassium 4.7 (3.5-5.1) mmol/L Chloride 109 H (98-107) mmol/L Carbon Dioxide 15 L* (22-30) mmol/L Anion Gap 13.6 (5-15) MEQ/L BUN 27 H (9-20) mg/dL Creatinine 1.30 H (0.66-1.25) mg/dL Estimated GFR 57.0 ML/MIN Glucose 273 H (74-106) mg/dL POC Glucometer 282 H (74 to 106) mg/dL Lactic Acid (0.4-2.0) Calcium 8.8 (8.4-10.2) mg/dL Total Bilirubin 0.70 (0.2-1.3) mg/dL AST 45 (17-59) U/L ALT 83 H (0-50) U/L Alkaline Phosphatase 113 (38-126) U/L NT-Pro-B Natriuret Pep 1710 (0-1800) pg/mL Serum Total Protein 6.8 (6.3-8.2) g/dL Albumin 3.6 (3.5-5.0) g/dL Urinalys Dipstick Clnc Urine Color (YELLOW) Urine Appearance (CLEAR) Urine pH (5-6) Ur Specific Forks (1.005-1.025) POC Urine Protein Conf (Negative) Urine Ketones (NEGATIVE) Urine Nitrite (NEGATIVE) Urine Bilirubin (NEGATIVE) Urine Urobilinogen (0-1) mg/dL Urine Leukocytes (NEGATIVE) Urine WBC (Auto) (0-5) /HPF Urine RBC (Auto) (0-2) /HPF U Epithel Cells (Auto) (FEW) /HPF Urine Bacteria (Auto) (NEGATIVE) /HPF Urine RBC (0-5) Jose Alfredo/ul Ur Culture Indicated? Urine Glucose (NEGATIVE) mg/dL Influenza Type A Ag (NEGATIVE) Influenza Type B Ag (NEGATIVE) RSV (PCR) (Negative) SARS-CoV-2 (PCR) (NEGATIVE) Slides for Path Review 12/30/21 12/30/21 Range/Units 05:03 07:44 WBC (4.0-10.5) x10^3/uL RBC (4.1-5.6) x10^6/uL Hgb (12.5-18.0) g/dL Hct (42-50) % MCV (78-100) fL MCH (26-32) pg MCHC (32-36) g/dL RDW (11.5-14.0) % Plt Count (150-450) x10^3/uL MPV (7.5-11.0) fL Gran % (36.0-66.0) % Immature Gran % (Auto) (0.00-0.4) % Nucleat RBC Rel Count (0.00-0.1) % Eos # (Auto) (0-0.5) x10^3/uL Immature Gran # (Auto) (0.00-0.03) x10^3u/L Absolute Lymphs (auto) (1.0-4.6) x10^3/uL Absolute Monos (auto) (0.0-1.3) x10^3/uL Absolute Nucleated RBC (0.00-0.01) x10^3u/L Lymphocytes % (24.0-44.0) % Monocytes % (0.0-12.0) % Eosinophils % (0.00-5.0) % Basophils % (0.0-0.4) % Absolute Granulocytes (1.4-6.9) x10^3/uL Basophils # (0-0.4) x10^3/uL Puncture Site pCO2 (35-45) mmHg pO2 (75-100) mmHg Base Excess (-2.0-2.0) O2 Saturation (94-100) g/dF ABG pH (7.35-7.45) ABG HCO3 (22-28) ABG O2 Sat (Measured) (95-100) % Carlitos Test A-a Gradient a/A Ratio Hemoglobin Carboxyhemoglobin (0.0-6.9) % THgb Methemoglobin (1.4-1.5) % Temperature C POC O2 Flow Rate % Sodium (137-145) mmol/L Potassium (3.5-5.1) mmol/L Chloride (98-107) mmol/L Carbon Dioxide (22-30) mmol/L Anion Gap (5-15) MEQ/L BUN (9-20) mg/dL Creatinine (0.66-1.25) mg/dL Estimated GFR ML/MIN Glucose (74-106) mg/dL POC Glucometer 212 H (74 to 106) mg/dL Lactic Acid 2.2 H (0.4-2.0) Calcium (8.4-10.2) mg/dL Total Bilirubin (0.2-1.3) mg/dL AST (17-59) U/L ALT (0-50) U/L Alkaline Phosphatase (38-126) U/L NT-Pro-B Natriuret Pep (0-1800) pg/mL Serum Total Protein (6.3-8.2) g/dL Albumin (3.5-5.0) g/dL Urinalys Dipstick Clnc Urine Color (YELLOW) Urine Appearance (CLEAR) Urine pH (5-6) Ur Specific Forks (1.005-1.025) POC Urine Protein Conf (Negative) Urine Ketones (NEGATIVE) Urine Nitrite (NEGATIVE) Urine Bilirubin (NEGATIVE) Urine Urobilinogen (0-1) mg/dL Urine Leukocytes (NEGATIVE) Urine WBC (Auto) (0-5) /HPF Urine RBC (Auto) (0-2) /HPF U Epithel Cells (Auto) (FEW) /HPF Urine Bacteria (Auto) (NEGATIVE) /HPF Urine RBC (0-5) Jose Alfredo/ul Ur Culture Indicated? Urine Glucose (NEGATIVE) mg/dL Influenza Type A Ag (NEGATIVE) Influenza Type B Ag (NEGATIVE) RSV (PCR) (Negative) SARS-CoV-2 (PCR) (NEGATIVE) Slides for Path Review Assessment/Plan (1) DKA (diabetic ketoacidosis) Current Visit: Yes Status: Acute Qualifiers: Diabetes mellitus type: drug or chemical induced Diabetes mellitus complication detail: without coma Qualified Code(s): E09.10 - 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 Code(s): E11.10 - TYPE 2 DIABETES MELLITUS WITH KETOACIDOSIS WITHOUT COMA (2) Sarcoidosis Current Visit: Yes Status: Chronic Assessment & Plan: recent increase in Prednisone for Sarcoidosis. Code(s): D86.9 - SARCOIDOSIS, UNSPECIFIED (3) Hx of malignant neoplasm of pancreas Current Visit: Yes Status: Resolved Code(s): Z85.07 - PERSONAL HISTORY OF MALIGNANT NEOPLASM OF PANCREAS (4) HTN (hypertension) Current Visit: Yes Status: Chronic Assessment & Plan: monitor Code(s): I10 - ESSENTIAL (PRIMARY) HYPERTENSION
[2021-12-30] MEDS ORDERED: PROTEASE PO SCH (10:30)
[2021-12-30] MEDS ORDERED: AMYLASE PO SCH (10:30)
[2021-12-30] MEDS ORDERED: LIPASE PO SCH (10:30)
[2021-12-30] MEDS ORDERED: MEDICATION INTERVENTION MC SCH (10:30)
[2021-12-30] MEDS ORDERED: [UNRECOGNIZED DRUG - OTHER] PO SCH (10:30)
[2021-12-30] MEDS: VITAMIN D PO SCH (10:33)
[2021-12-30] MEDS: SYNTHROID 50 MCG PO SCH (10:33)
[2021-12-30] MEDS: HUMULIN R SQ PRN ×3 (10:33→21:18)
[2021-12-30] MEDS: THERAGRAN MULTIVITAMIN PO SCH (10:33)
[2021-12-30] MEDS: Glucotrol 5 MG PO SCH (10:34)
[2021-12-30] MEDS: Klor Con PO SCH ×3 (10:34→21:21)
[2021-12-30] MEDS: MAG-OX 400 PO SCH ×2 (10:34→21:20)
[2021-12-30] MEDS: ZOCOR 20MG PO SCH (10:35)
[2021-12-30] MEDS: DELTASONE 10 MG PO SCH (10:36)
[2021-12-30] MEDS: Apresoline 25 MG TABLET PO SCH (10:36)
[2021-12-30] MEDS: NORVASC 5 MG PO SCH (10:37)
[2021-12-30] MEDS: Lopressor 50 MG PO SCH (10:40)
[2021-12-30] MEDS ORDERED: DELTASONE 20 MG PO SCH (11:00)
[2021-12-30] MEDS ORDERED: NON-FORMULARY ITEM (Potassium Chloride [Potassium Chloride] 20 MEQ Tab.Er.Prt) PO SCH (15:00)
[2021-12-30] MEDS: Glucophage XR 500 MG PO SCH (16:59)
[2021-12-30] MEDS ORDERED: NON-FORMULARY ITEM (Magnesium Oxide [Magnesium] 250 MG Tablet) PO SCH (22:00)
[2021-12-30] MEDS ORDERED: HUMULIN R SQ ONE (23:40)
[2021-12-31 05:18] LABS: Absolute Neutrophil Ct (ANC) 5.55 x10^3/uL (1.4-6.9); Basophil (Absolute #) 0.02 x10^3/uL (0-0.4); Eosinophil % 2.4 % (0.00-5.0); Hematocrit 37.3 % (42-50); Hemoglobin 12.6 g/dL (12.5-18.0); Lymphocyte (Absolute #) 1.63 x10^3/uL (1.0-4.6); Lymphocytes % 19.9 % (24.0-44.0); Mean Corpuscular Hemoglobin 31.4 pg (26-32); Mean Corpuscular Hgb Concent. 33.8 g/dL (32-36); Mean Platelet Volume 11.7 fL (7.5-11.0); Monocyte (Absolute #) 0.77 x10^3/uL (0.0-1.3); Monocytes % 9.4 % (0.0-12.0); Neutrophil % 67.6 % (36.0-66.0); Platelet Count 198 x10^3/uL (150-450); Red Blood Count 4.01 x10^6/uL (4.1-5.6); White Blood Count 8.2 x10^3/uL (4.0-10.5)
[2021-12-31 05:33] LABS: ALBUMIN 3.1 g/dL (3.5-5.0); ALKALINE PHOSPHATASE 74 U/L (38-126); ANION GAP 12.4 MEQ/L (5-15); BLOOD UREA NITROGEN 21 mg/dL (9-20); CHLORIDE 113 mmol/L (98-107); Calcium 7.9 mg/dL (8.4-10.2); Creatinine 1 1.06 mg/dL (0.66-1.25); EST GLOMERULAR FILTRATION RATE > 60.0 ML/MIN; Glucose 77 mg/dL (74-106); NT PRO BNP 1870 pg/mL (0-1800); Potassium 4.5 mmol/L (3.5-5.1); SGOT/AST 40 U/L (17-59); SGPT/ALT 78 U/L (0-50); SODIUM 136 mmol/L (137-145); Total Protein 6.2 g/dL (6.3-8.2)
[2021-12-31 05:41] LABS: Carbon Dioxide 14 mmol/L (22-30)
[2021-12-31] MEDS: ZOCOR 20MG PO SCH (08:34)
[2021-12-31] MEDS: SYNTHROID 50 MCG PO SCH (08:34)
[2021-12-31] MEDS: VITAMIN D PO SCH (08:34)
[2021-12-31] MEDS: Klor Con PO SCH ×3 (08:34→21:31)
[2021-12-31] MEDS: Apresoline 25 MG TABLET PO SCH (08:35)
[2021-12-31] MEDS: Glucotrol 5 MG PO SCH (08:35)
[2021-12-31] MEDS: THERAGRAN MULTIVITAMIN PO SCH (08:35)
[2021-12-31] MEDS: NORVASC 5 MG PO SCH (08:35)
[2021-12-31] MEDS: MAG-OX 400 PO SCH ×2 (08:35→21:34)
[2021-12-31] MEDS: Lopressor 50 MG PO SCH (08:35)
[2021-12-31] MEDS: DELTASONE 10 MG PO SCH (08:35)
[2021-12-31] MEDS: Sodium Chloride 0.9% 1000 ML 1,000 ML IV SCH ×2 (08:56→19:22)
[2021-12-31] MEDS ORDERED: NON-FORMULARY ITEM (Metoprolol Tartrate [Metoprolol Tartrate] 100 MG Tablet) PO SCH (10:00)
[2021-12-31] MEDS ORDERED: NON-FORMULARY ITEM (Pravastatin Sodium [Pravastatin Sodium] 20 MG Tablet) PO SCH ×2 (10:00)
[2021-12-31] MEDS ORDERED: NON-FORMULARY ITEM (Cholecalciferol (Vitamin D3) [Vitamin D3] 250 MCG Tablet) PO SCH (10:00)
[2021-12-31] MEDS ORDERED: NON-FORMULARY ITEM (Multivitamin [Multivitamin] 1 EACH Tablet) PO SCH (10:00)
[2021-12-31] MEDS ORDERED: NON-FORMULARY ITEM (Glipizide 10 Mg*** [Glucotrol 10 Mg***] 10 MG Tablet) PO SCH (10:00)
[2021-12-31] MEDS ORDERED: NON-FORMULARY ITEM (Hydralazine Hcl [Hydralazine Hcl] 10 MG Tablet) PO SCH (10:00)
--- NOTE | 2021-12-31 12:44 | PCM.NOTE ---
Date and Time: 12/31/21 1238 Subjective Assessment: Patient states he if starting to feel stronger and appetite is good. Sugars have been high and low and sliding scale insulin was changed to low dose and now on hold to obseve in prep for dischage home. States was on Metformin and Glucotrol but sugars dropped and he stopped the Metformin.Will need home health and appt set with PCPt o establish care. Patient states he does not have a PCP. Dr EVERETTE Tomas has been following him for Sarcoidosis . Dr Joe follows Pancreatic cancer.Patient lives alone and states he checks sugar every 3 days and has never been on insulin. Objective Exam General Appearance: no apparent distress Neurologic Exam: alert, oriented x 3, cooperative, normal mood/affect Skin Exam: normal color, warm, dry Respiratory Exam: normal breath sounds Cardiovascular Exam: regular rate/rhythm Gastrointestinal/Abdomen Exam: soft Extremity Exam: normal inspection OBJECTIVE DATA Vital Signs: Vital Signs - 24 hr Temp Pulse Resp BP Pulse Ox 12/31/21 11:23 97.8 F 65 16 141/81 98 12/31/21 08:00 18 12/31/21 07:30 97.8 F 63 18 126/76 97 12/31/21 04:45 97 12/31/21 04:04 98.0 F 61 17 126/73 96 12/31/21 04:00 17 12/31/21 00:00 16 12/30/21 23:30 97.7 F 64 16 143/82 98 12/30/21 20:00 18 12/30/21 19:49 97.8 F 72 18 147/76 99 12/30/21 16:00 97.8 F 57 L 14 133/79 97 Pain Assessment - Last Documented Pain Intensity 0 Intake and Output: Intake & Output 12/29/21 12/30/21 12/31/21 01/01/22 11:59 11:59 11:59 11:59 Intake Total 240 3209 Output Total 1000 300 Balance -760 2909 Weight 55.4 kg 56.2 kg Lab Results: Lab Results-Last 24 Hours 12/30/21 12/30/21 12/30/21 Range/Units 16:45 16:55 20:50 WBC (4.0-10.5) x10^3/uL RBC (4.1-5.6) x10^6/uL Hgb (12.5-18.0) g/dL Hct (42-50) % MCV (78-100) fL MCH (26-32) pg MCHC (32-36) g/dL RDW (11.5-14.0) % Plt Count (150-450) x10^3/uL MPV (7.5-11.0) fL Gran % (36.0-66.0) % Immature Gran % (Auto) (0.00-0.4) % Nucleat RBC Rel Count (0.00-0.1) % Eos # (Auto) (0-0.5) x10^3/uL Immature Gran # (Auto) (0.00-0.03) x10^3u/L Absolute Lymphs (auto) (1.0-4.6) x10^3/uL Absolute Monos (auto) (0.0-1.3) x10^3/uL Absolute Nucleated RBC (0.00-0.01) x10^3u/L Lymphocytes % (24.0-44.0) % Monocytes % (0.0-12.0) % Eosinophils % (0.00-5.0) % Basophils % (0.0-0.4) % Absolute Granulocytes (1.4-6.9) x10^3/uL Basophils # (0-0.4) x10^3/uL Sodium (137-145) mmol/L Potassium (3.5-5.1) mmol/L Chloride (98-107) mmol/L Carbon Dioxide (22-30) mmol/L Anion Gap (5-15) MEQ/L BUN (9-20) mg/dL Creatinine (0.66-1.25) mg/dL Estimated GFR ML/MIN Glucose (74-106) mg/dL POC Glucometer 40 L* 47 L* 408 H (50 to 500) mg/dL Hemoglobin A1c (4.5-6.0) % Calcium (8.4-10.2) mg/dL Total Bilirubin (0.2-1.3) mg/dL AST (17-59) U/L ALT (0-50) U/L Alkaline Phosphatase (38-126) U/L NT-Pro-B Natriuret Pep (0-1800) pg/mL Serum Total Protein (6.3-8.2) g/dL Albumin (3.5-5.0) g/dL TSH 3rd Generation (0.47-4.68) mIU/L 12/30/21 12/31/21 12/31/21 Range/Units 23:28 03:07 04:40 WBC (4.0-10.5) x10^3/uL RBC (4.1-5.6) x10^6/uL Hgb (12.5-18.0) g/dL Hct (42-50) % MCV (78-100) fL MCH (26-32) pg MCHC (32-36) g/dL RDW (11.5-14.0) % Plt Count (150-450) x10^3/uL MPV (7.5-11.0) fL Gran % (36.0-66.0) % Immature Gran % (Auto) (0.00-0.4) % Nucleat RBC Rel Count (0.00-0.1) % Eos # (Auto) (0-0.5) x10^3/uL Immature Gran # (Auto) (0.00-0.03) x10^3u/L Absolute Lymphs (auto) (1.0-4.6) x10^3/uL Absolute Monos (auto) (0.0-1.3) x10^3/uL Absolute Nucleated RBC (0.00-0.01) x10^3u/L Lymphocytes % (24.0-44.0) % Monocytes % (0.0-12.0) % Eosinophils % (0.00-5.0) % Basophils % (0.0-0.4) % Absolute Granulocytes (1.4-6.9) x10^3/uL Basophils # (0-0.4) x10^3/uL Sodium (137-145) mmol/L Potassium (3.5-5.1) mmol/L Chloride (98-107) mmol/L Carbon Dioxide (22-30) mmol/L Anion Gap (5-15) MEQ/L BUN (9-20) mg/dL Creatinine (0.66-1.25) mg/dL Estimated GFR ML/MIN Glucose (74-106) mg/dL POC Glucometer 420 H 149 H (50 to 500) mg/dL Hemoglobin A1c (4.5-6.0) % Calcium (8.4-10.2) mg/dL Total Bilirubin (0.2-1.3) mg/dL AST (17-59) U/L ALT (0-50) U/L Alkaline Phosphatase (38-126) U/L NT-Pro-B Natriuret Pep (0-1800) pg/mL Serum Total Protein (6.3-8.2) g/dL Albumin (3.5-5.0) g/dL TSH 3rd Generation 3.710 (0.47-4.68) mIU/L 12/31/21 12/31/21 12/31/21 Range/Units 04:40 04:40 04:40 WBC 8.2 (4.0-10.5) x10^3/uL RBC 4.01 L (4.1-5.6) x10^6/uL Hgb 12.6 (12.5-18.0) g/dL Hct 37.3 L (42-50) % MCV 93.0 (78-100) fL MCH 31.4 (26-32) pg MCHC 33.8 (32-36) g/dL RDW 15.0 H (11.5-14.0) % Plt Count 198 (150-450) x10^3/uL MPV 11.7 H (7.5-11.0) fL Gran % 67.6 H (36.0-66.0) % Immature Gran % (Auto) 0.5 H (0.00-0.4) % Nucleat RBC Rel Count 0.0 (0.00-0.1) % Eos # (Auto) 0.20 (0-0.5) x10^3/uL Immature Gran # (Auto) 0.04 H (0.00-0.03) x10^3u/L Absolute Lymphs (auto) 1.63 (1.0-4.6) x10^3/uL Absolute Monos (auto) 0.77 (0.0-1.3) x10^3/uL Absolute Nucleated RBC 0.00 (0.00-0.01) x10^3u/L Lymphocytes % 19.9 L (24.0-44.0) % Monocytes % 9.4 (0.0-12.0) % Eosinophils % 2.4 (0.00-5.0) % Basophils % 0.2 (0.0-0.4) % Absolute Granulocytes 5.55 (1.4-6.9) x10^3/uL Basophils # 0.02 (0-0.4) x10^3/uL Sodium 136 L (137-145) mmol/L Potassium 4.5 (3.5-5.1) mmol/L Chloride 113 H (98-107) mmol/L Carbon Dioxide 14 L* (22-30) mmol/L Anion Gap 12.4 (5-15) MEQ/L BUN 21 H (9-20) mg/dL Creatinine 1.06 (0.66-1.25) mg/dL Estimated GFR > 60.0 ML/MIN Glucose 77 (74-106) mg/dL POC Glucometer (50 to 500) mg/dL Hemoglobin A1c 10.38 H (4.5-6.0) % Calcium 7.9 L (8.4-10.2) mg/dL Total Bilirubin 0.60 (0.2-1.3) mg/dL AST 40 (17-59) U/L ALT 78 H (0-50) U/L Alkaline Phosphatase 74 (38-126) U/L NT-Pro-B Natriuret Pep 1870 H (0-1800) pg/mL Serum Total Protein 6.2 L (6.3-8.2) g/dL Albumin 3.1 L (3.5-5.0) g/dL TSH 3rd Generation (0.47-4.68) mIU/L 12/31/21 12/31/21 Range/Units 06:54 11:10 WBC (4.0-10.5) x10^3/uL RBC (4.1-5.6) x10^6/uL Hgb (12.5-18.0) g/dL Hct (42-50) % MCV (78-100) fL MCH (26-32) pg MCHC (32-36) g/dL RDW (11.5-14.0) % Plt Count (150-450) x10^3/uL MPV (7.5-11.0) fL Gran % (36.0-66.0) % Immature Gran % (Auto) (0.00-0.4) % Nucleat RBC Rel Count (0.00-0.1) % Eos # (Auto) (0-0.5) x10^3/uL Immature Gran # (Auto) (0.00-0.03) x10^3u/L Absolute Lymphs (auto) (1.0-4.6) x10^3/uL Absolute Monos (auto) (0.0-1.3) x10^3/uL Absolute Nucleated RBC (0.00-0.01) x10^3u/L Lymphocytes % (24.0-44.0) % Monocytes % (0.0-12.0) % Eosinophils % (0.00-5.0) % Basophils % (0.0-0.4) % Absolute Granulocytes (1.4-6.9) x10^3/uL Basophils # (0-0.4) x10^3/uL Sodium (137-145) mmol/L Potassium (3.5-5.1) mmol/L Chloride (98-107) mmol/L Carbon Dioxide (22-30) mmol/L Anion Gap (5-15) MEQ/L BUN (9-20) mg/dL Creatinine (0.66-1.25) mg/dL Estimated GFR ML/MIN Glucose (74-106) mg/dL POC Glucometer 85 299 H (50 to 500) mg/dL Hemoglobin A1c (4.5-6.0) % Calcium (8.4-10.2) mg/dL Total Bilirubin (0.2-1.3) mg/dL AST (17-59) U/L ALT (0-50) U/L Alkaline Phosphatase (38-126) U/L NT-Pro-B Natriuret Pep (0-1800) pg/mL Serum Total Protein (6.3-8.2) g/dL Albumin (3.5-5.0) g/dL TSH 3rd Generation (0.47-4.68) mIU/L Assessment/Plan (1) DKA (diabetic ketoacidosis) Current Visit: Yes Status: Resolved Qualifiers: Diabetes mellitus type: drug or chemical induced Diabetes mellitus complication detail: without coma Qualified Code(s): E09.10 - 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 Code(s): E11.10 - TYPE 2 DIABETES MELLITUS WITH KETOACIDOSIS WITHOUT COMA (2) Sarcoidosis Current Visit: Yes Status: Chronic Code(s): D86.9 - SARCOIDOSIS, UNSPECIFIED (3) Hx of malignant neoplasm of pancreas Current Visit: Yes Status: Resolved Assessment & Plan: in remission Code(s): Z85.07 - PERSONAL HISTORY OF MALIGNANT NEOPLASM OF PANCREAS (4) HTN (hypertension) Current Visit: Yes Status: Chronic Code(s): I10 - ESSENTIAL (PRIMARY) HYPERTENSION (5) Elevated brain natriuretic peptide (BNP) level Current Visit: Yes Status: Acute Assessment & Plan: Lasix 1 dose ,ECHO Code(s): R79.89 - OTHER SPECIFIED ABNORMAL FINDINGS OF BLOOD CHEMISTRY
[2021-12-31] MEDS: Glucophage XR 500 MG PO SCH (17:08)
[2021-12-31] MEDS: HUMULIN R SQ PRN ×2 (17:09→21:32)
[2022-01-01] MEDS ORDERED: Lasix 20 MG/2 ML IV ONE (00:24)
[2022-01-01 04:41] LABS: Absolute Neutrophil Ct (ANC) 5.69 x10^3/uL (1.4-6.9); Basophil (Absolute #) 0.02 x10^3/uL (0-0.4); Eosinophil % 2.7 % (0.00-5.0); Eosinophil (Absolute #) 0.23 x10^3/uL (0-0.5); Hematocrit 42.8 % (42-50); Hemoglobin 14.3 g/dL (12.5-18.0); Lymphocyte (Absolute #) 1.73 x10^3/uL (1.0-4.6); Lymphocytes % 20.4 % (24.0-44.0); Mean Cell Volume 94.1 fL (78-100); Mean Corpuscular Hemoglobin 31.4 pg (26-32); Mean Corpuscular Hgb Concent. 33.4 g/dL (32-36); Mean Platelet Volume 11.4 fL (7.5-11.0); Monocyte (Absolute #) 0.79 x10^3/uL (0.0-1.3); Monocytes % 9.3 % (0.0-12.0); Neutrophil % 66.9 % (36.0-66.0); Platelet Count 210 x10^3/uL (150-450); Red Blood Count 4.55 x10^6/uL (4.1-5.6); Red Cell Distribution Width 15.2 % (11.5-14.0); White Blood Count 8.5 x10^3/uL (4.0-10.5)
[2022-01-01 05:15] LABS: ALBUMIN 3.6 g/dL (3.5-5.0); ALKALINE PHOSPHATASE 83 U/L (38-126); ANION GAP 13.3 MEQ/L (5-15); BLOOD UREA NITROGEN 20 mg/dL (9-20); CHLORIDE 109 mmol/L (98-107); Calcium 8.1 mg/dL (8.4-10.2); Creatinine 1 1.19 mg/dL (0.66-1.25); EST GLOMERULAR FILTRATION RATE > 60.0 ML/MIN; Glucose 96 mg/dL (74-106); MAGNESIUM 1.6 mg/dL (1.6-2.3); Potassium 5.2 mmol/L (3.5-5.1); SGOT/AST 49 U/L (17-59); SGPT/ALT 87 U/L (0-50); SODIUM 133 mmol/L (137-145)
[2022-01-01 05:25] LABS: Carbon Dioxide 15 mmol/L (22-30)
[2022-01-01 08:21] LABS: A-aADO2 7; ABG HEMOGLOBIN 15.7; ABG POTASSIUM 5.9 (3.5-5.1); ARTERIAL BLD GAS O2 SATURATION 98.8 % (95-100); ARTERIAL BLOOD GAS BASE EXCESS -11.8 (-2.0-2.0); ARTERIAL BLOOD GAS FIO2 21 %; ARTERIAL BLOOD GAS PCO2 22 mmHg (35-45); ARTERIAL BLOOD GAS PO2 115 mmHg (75-100); ARTERIAL BLOOD GAS pH 7.34 (7.35-7.45); CARBOXYHEMOGLOBIN 0.6 % THgb (0.0-6.9); HCO3- 11.9 (22-28); HGB O2 SAT 97.6 g/dF (94-100); Methhemoglobin 0.6 % (1.4-1.5)
--- NOTE | 2022-01-01 08:52 | XRAY ---
Indication: Hypertension. Comparison: June 23, 2010 PA/lateral chest again demonstrates COPD with scattered bilateral subsegmental atelectasis/scarring again greatest left infrahilar region. Incidental right nipple shadow. No focal infiltrate, consolidation, or large effusion. Heart not enlarged with new right Port-A-Cath. Bony thorax intact with mild osteopenia, degenerative changes, and minimal levoscoliosis. Impression: Nonacute chest with chronic features.
[2022-01-01] MEDS: Glucotrol 5 MG PO SCH (09:00)
[2022-01-01] MEDS: DELTASONE 10 MG PO SCH (09:07)
[2022-01-01] MEDS: VITAMIN D PO SCH (09:07)
[2022-01-01] MEDS: ZOCOR 20MG PO SCH (09:07)
[2022-01-01] MEDS: SYNTHROID 50 MCG PO SCH (09:07)
[2022-01-01] MEDS: MAG-OX 400 PO SCH (09:07)
[2022-01-01] MEDS: THERAGRAN MULTIVITAMIN PO SCH (09:08)
[2022-01-01] MEDS: NORVASC 5 MG PO SCH (09:08)
[2022-01-01] MEDS: Lopressor 50 MG PO SCH (09:08)
[2022-01-01] MEDS: Apresoline 25 MG TABLET PO SCH (09:08)
[2022-01-01 13:36] VITALS: BP 133/78; PULSE 62; O2SAT 99
[2022-01-01] MEDS: HUMULIN R SQ PRN ×2 (14:00→16:50)
--- NOTE | 2022-01-01 14:48 | PCM.DCORD ---
- Discharge Disposition: HOME HEALTH SERVICE Condition: Stable Prescriptions: New Metformin HCl Xr 500 mg [Glucophage XR 500 MG] 500 mg PO DAILY #30 tab Continue Metoprolol Tartrate 100 mg PO DAILY Amlodipine Besylate 5 mg [Norvasc 5 mg] 5 mg PO DAILY Magnesium Oxide [Magnesium] 250 mg PO BID Pravastatin Sodium 20 mg PO DAILY Cholecalciferol (Vitamin D3) [Vitamin D3] 1,000 mcg PO DAILY Lipase/Protease/Amylase [Juarez Almendarez 6,000 Unit Capsule] 1 tab PO UD Hydralazine HCl 10 mg PO DAILY Levothyroxine Sodium 50 Mcg [Synthroid 50 Mcg] 50 mcg PO DAILY Glipizide 10 mg [Glucotrol 10 MG] 10 mg PO DAILY Multivitamin 1 tab PO DAILY Changed Prednisone 10 mg [Deltasone 10 mg] 5 mg PO DAILY #30 Discontinued Potassium Chloride 40 meq PO TID Additional Instructions: [facility] THEY WILL CONTACT YOU TO ARRANGE A VISIT. THEIR PHONE NUMBER IS [phone] POTASSIUM - do not take your potassium med because your level was high in the hospital. Lab draw for potassium due in [address] Tomas will advise you on how to take your potassium.
[2022-01-02 01:08] LABS: ABG SITE RIGHT RADIAL; ALLEN TEST OK? YES
--- NOTE | 2022-01-03 07:49 | ECHO ---
Transthoracic echocardiographic examination and color Doppler was done on 01/01/2022. INDICATION: Elevated BNP, hypertension. IMPRESSION: 1) REGIONAL WALL MOTION ABNORMALITY WITH MILD HYPOKINESIA OF THE APEX. ESTIMATED GLOBAL LEFT VENTRICULAR EJECTION FRACTION OF AROUND 55 TO 60%. 2) MILD MITRAL REGURGITATION. 3) TRACE TRICUSPID REGURGITATION. RIGHT VENTRICULAR SYSTOLIC PRESSURE OF 21 MM OF MERCURY. 4) LEFT VENTRICLE DIASTOLIC DYSFUNCTION. The left ventricle is visualized and demonstrated mild hypokinesia of the apex with estimated global left ventricular ejection fraction between 55 to 60%. The left ventricular thickness is normal. The mitral valve is seen and this opens adequately. There is mild mitral regurgitation. Left atrium is normal. Tissue Doppler study of the lateral mitral annulus suggestive of left ventricle diastolic dysfunction. The aortic valve opens adequately. The right side chambers are normal. There is trace tricuspid regurgitation. The right ventricular systolic pressure of 21 mm of Mercury.
== END 2022-01-01 17:15 | disposition home health service (06) ==
LOC: ED 21:05 → MED SURG 12-30 04:34
PROVIDERS: ADMIT Family Medicine; ATTEND Family Medicine
DX: E11.10 Type 2 diabetes mellitus with ketoacidosis without coma (principal); D86.9 Sarcoidosis, unspecified; I12.9 Hypertensive chronic kidney disease with stage 1 through stage 4 chronic kidney disease, or unspecified chronic kidney disease; E11.22 Type 2 diabetes mellitus with diabetic chronic kidney disease; N18.9 Chronic kidney disease, unspecified; E03.9 Hypothyroidism, unspecified; R53.83 Other fatigue; R79.89 Other specified abnormal findings of blood chemistry; Z79.899 Other long term (current) drug therapy; Z20.828 Contact with and (suspected) exposure to other viral communicable diseases; Z85.07 Personal history of malignant neoplasm of pancreas
CPT/HCPCS: 0241U; 36000; 36415; 36600; 71046; 80048; 80053; 81015; 82375; 82803; 82947; 83036; 83605; 83735; 83880; 84443; 85025; 85027; 93005; 93268; 93306; 96360; 96361; 96374; 99285; 99291; G0378; J0610; J1642; J1815; J1940; A9270-GY

== ENCOUNTER 2022-09-18 12:02 | Inpatient (IN) | payer MEDICARE ==
--- NOTE | 2022-09-18 12:07 | ERPHSYRPT ---
- History of Present Illness Time Seen by Provider: 09/18/22 12:07 Source: patient, EMS, old records Exam Limitations: no limitations Physician History: This is a 77-year-old white male patient who has a history of pancreatic cancer and received his last chemotherapy treatment 1 month ago. He also has chronic renal disease. Patient was found to have an elevated blood sugar. Paramedics brought the patient into the emergency department and their blood sugar reading was 480. The patient also has a history of hypertension, hypothyroidism and [id number] diabetes. Patient also states he has had some dark tarry stools without vomiting and no significant abdominal pain. He does not have any shortness of breath or chest pain at this time. He does feel weak. History was obtained from the paramedics and additional history from old inpatient records of 12/29/2021. Timing/Duration: today, worse Severity: moderate Associated Symptoms: loss of appetite, weakness, No shortness of breath, No chest pain, No fever Allergies/Adverse Reactions: No Known Drug Allergies Allergy (Verified 09/18/22 12:27) Home Medications: Amlodipine Besylate 5 mg [Norvasc 5 mg] 5 mg PO DAILY 07/06/15 [History] Metoprolol Tartrate 100 mg PO DAILY 07/06/15 [History] Cholecalciferol (Vitamin D3) [Vitamin D3] 1,000 mcg PO DAILY 12/29/21 [History] Glipizide 10 mg [Glucotrol 10 MG] 10 mg PO DAILY 12/29/21 [History] Hydralazine HCl 10 mg PO DAILY 12/29/21 [History] Levothyroxine Sodium 50 Mcg [Synthroid 50 Mcg] 50 mcg PO DAILY 12/29/21 [History] Lipase/Protease/Amylase [Creon Dr 6,000 Unit Capsule] 1 tab PO UD 12/29/21 [H istory] Magnesium Oxide [Magnesium] 250 mg PO BID 12/29/21 [History] Multivitamin 1 tab PO DAILY 12/29/21 [History] Pravastatin Sodium 20 mg PO DAILY 12/29/21 [History] Hx Tetanus, Diphtheria Vaccination/Date Given: No Travel Risk - International Travel Have you traveled outside of the country in past 3 weeks: No - Coronavirus Screening Are you exhibiting any of the following symptoms?: No Close contact with a COVID-19 positive Pt in past 14-21 Days: No - Vaccine Status Have you recieved a Covid-19 vaccination: Yes Director Case: Moderna - Vaccination Dates Date of 2cond Vaccination (if applicable): August 2020 - Review of Systems Constitutional: Weakness Eyes: No Symptoms Ears, Nose, & Throat: No Symptoms Respiratory: No Symptoms Cardiac: No Symptoms Abdominal/Gastrointestinal: Other (Recently noted to have dark tarry stools) Genitourinary Symptoms: No Symptoms Musculoskeletal: No Symptoms Skin: No Symptoms Neurological: No Symptoms Psychological: No Symptoms Endocrine: No Symptoms Hematologic/Lymphatic: No Symptoms Immunological/Allergic: No Symptoms All Other Systems: Reviewed and Negative - Past Medical History Pertinent Past Medical History: Yes Neurological History: No Pertinent History ENT History: No Pertinent History Cardiac History: High Cholesterol, Hypertension Respiratory History: Other Endocrine Medical History: Hypothyroidism Musculoskeletal History: No Pertinent History GI Medical History: No Pertinent History History: No Pertinent History Psycho-Social History: No Pertinent History Male Reproductive Disorders: No Pertinent History Other Medical History: 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 - Social History Smoking Status: Never smoker Exposure to second hand smoke: No Drug Use: none - Nursing Vital Signs Nursing Vital Signs: Initial Vital Signs Temperature 97.2 F 09/18/22 12:04 Pulse Rate 84 09/18/22 12:04 Blood Pressure 103/64 09/18/22 12:04 O2 Sat by Pulse Oximetry 99 09/18/22 12:04 Pain Scale Pain Intensity 0 - Physical Exam General Appearance: no apparent distress, alert, thin Eye Exam: pale conjunctivae Ears, Nose, Throat Exam: dry mucous membranes Neck Exam: normal inspection, non-tender, supple, full range of motion Respiratory Exam: normal breath sounds, lungs clear, airway intact, No chest tenderness, No respiratory distress Cardiovascular Exam: regular rate/rhythm, normal heart sounds, normal peripheral pulses Gastrointestinal/Abdomen Exam: soft, normal bowel sounds, No tenderness Rectal Exam: not done Back Exam: normal inspection, normal range of motion, No CVA tenderness, No vertebral tenderness Extremity Exam: normal inspection, normal range of motion, pelvis stable Neurologic Exam: alert, oriented x 3, cooperative, 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, normal mood/affect, sensation nml Skin Exam: pale Lymphatic Exam: No adenopathy SpO2 Interpretation: normal O2 Delivery: Room Air - Course Nursing assessment & vital signs reviewed: Yes EKG Interpreted by Me: RATE (84), NORMAL AXIS, NORMAL QRS, Right Bundle Branch Block, NORMAL ST-T, Other (No acute ischemic changes on today's twelve-lead EKG.) Ordered Tests: Active Orders 24 hr Category Date Time Status Catheter-[place] STAT Care 09/18/22 12:20 Active EKG-ER Only STAT Care 09/18/22 12:20 Active IV Insertion STAT Care 09/18/22 12:20 Active AMYLASE Stat Lab 09/18/22 12:25 Completed BLOOD CULTURE Stat Lab 09/18/22 12:48 Received CBC W DIFF Stat Lab 09/18/22 12:25 Results CMP Stat Lab 09/18/22 12:25 Completed CULTURE,URINE Stat Lab 09/18/22 12:41 Received LIPASE Stat Lab 09/18/22 12:25 Completed Lactic Acid Stat Lab 09/18/22 12:51 Completed Manual Differential NC Stat Lab 09/18/22 12:25 Results Pathologist Review Stat Lab 09/18/22 12:25 Results UA W/RFX UR CULTURE Stat Lab 09/18/22 12:41 Completed Transfer Order Routine Transfer 09/18/22 Ordered Medication Summary Generic Name Dose Route Start Last Admin Trade Name Freq PRN Reason Stop Dose Admin Sodium Chloride 1,000 mls @ 100 mls/hr 09/18/22 12:30 09/18/22 12:55 Sodium Chloride 0.9% 1000 Ml IV 10/18/22 12:29 100 mls/hr .Q10H THERESE Administration Discontinued Medications Generic Name Dose Route Start Last Admin Trade Name Freq PRN Reason Stop Dose Admin Insulin Human Regular 15 unit 09/18/22 13:42 09/18/22 14:13 Insulin Regular, Human 1 Unit IV 09/18/22 13:43 15 unit STAT ONE Administration Insulin Human Regular Confirm 09/18/22 14:13 Insulin Regular, Human 1 Unit Administered 09/18/22 14:14 Dose 15 unit .ROUTE .STK-MED ONE Pantoprazole Sodium 40 mg 09/18/22 12:20 09/18/22 12:57 Pantoprazole 40 Mg Vial IV 09/18/22 12:21 40 mg STAT ONE Administration Pantoprazole Sodium Confirm 09/18/22 12:43 Pantoprazole 40 Mg Vial Administered 09/18/22 12:44 Dose 40 mg IV .STK-MED ONE Lab/Rad Data: Laboratory Result Diagrams 09/18/22 12:25 09/18/22 12:25 Laboratory Results 09/18/22 09/18/22 09/18/22 Range/Units 12:51 12:50 12:41 WBC (4.0-10.5) x10^3/uL RBC (4.1-5.6) x10^6/uL Hgb (12.5-18.0) g/dL Hct (42-50) % MCV (78-100) fL MCH (26-32) pg MCHC (32-36) g/dL RDW (11.5-14.0) % Plt Count (150-450) x10^3/uL MPV (7.5-11.0) fL Smear Path Review Sodium (137-145) mmol/L Potassium (3.5-5.1) mmol/L Chloride (98-107) mmol/L Carbon Dioxide (22-30) mmol/L Anion Gap (5-15) MEQ/L BUN (9-20) mg/dL Creatinine (0.66-1.25) mg/dL Estimated GFR ML/MIN Glucose (74-106) mg/dL Lactic Acid 7.9 H (0.4-2.0) Calcium (8.4-10.2) mg/dL Total Bilirubin (0.2-1.3) mg/dL AST (17-59) U/L ALT (0-50) U/L Alkaline Phosphatase (38-126) U/L Serum Total Protein (6.3-8.2) g/dL Albumin (3.5-5.0) g/dL Amylase (30-110) U/L Lipase (23-300) U/L Urine Color Yellow (Yellow) Urine Appearance Clear (Clear) Urine pH 7.5 (4.6-8.0) Ur Specific Norris 1.020 (1.005-1.030) Urine Protein Negative (Negative) Urine Glucose (UA) >=1000 A (Negative) mg/dL Urine Ketones Negative (Negative) Urine Blood Negative (Negative) Urine Nitrite Negative (Negative) Urine Bilirubin Negative (Negative) Urine Urobilinogen 0.2 (0.2) mg/dL Ur Leukocyte Esterase Negative (Negative) U Hyaline Cast (Auto) NONE SEEN (0-2) /LPF Urine Microscopic RBC 0-2 (0-5) /HPF Urine Microscopic WBC 3-5 (0-5) /HPF Ur Epithelial Cells None Seen (None Seen) /HPF Urine Bacteria None Seen (None Seen) /HPF Urine Culture Reflexed ORDERED SEPARATELY (NO) Influenza Type A Ag NEGATIVE (NEGATIVE) Influenza Type B Ag NEGATIVE (NEGATIVE) RSV (PCR) NEGATIVE (NEGATIVE) SARS-CoV-2 (PCR) POSITIVE A (NEGATIVE) ABO Group Rh Factor Antibody Screen (NEGATIVE) Crossmatch (COMPATIBLE) 09/18/22 09/18/22 09/18/22 Range/Units 12:25 12:25 12:25 WBC (4.0-10.5) x10^3/uL RBC (4.1-5.6) x10^6/uL Hgb (12.5-18.0) g/dL Hct (42-50) % MCV (78-100) fL MCH (26-32) pg MCHC (32-36) g/dL RDW (11.5-14.0) % Plt Count (150-450) x10^3/uL MPV (7.5-11.0) fL Smear Path Review Sodium (137-145) mmol/L Potassium (3.5-5.1) mmol/L Chloride (98-107) mmol/L Carbon Dioxide (22-30) mmol/L Anion Gap (5-15) MEQ/L BUN (9-20) mg/dL Creatinine (0.66-1.25) mg/dL Estimated GFR ML/MIN Glucose (74-106) mg/dL Lactic Acid (0.4-2.0) Calcium (8.4-10.2) mg/dL Total Bilirubin (0.2-1.3) mg/dL AST (17-59) U/L ALT (0-50) U/L Alkaline Phosphatase (38-126) U/L Serum Total Protein (6.3-8.2) g/dL Albumin (3.5-5.0) g/dL Amylase (30-110) U/L Lipase (23-300) U/L Urine Color (Yellow) Urine Appearance (Clear) Urine pH (4.6-8.0) Ur Specific Norris (1.005-1.030) Urine Protein (Negative) Urine Glucose (UA) (Negative) mg/dL Urine Ketones (Negative) Urine Blood (Negative) Urine Nitrite (Negative) Urine Bilirubin (Negative) Urine Urobilinogen (0.2) mg/dL Ur Leukocyte Esterase (Negative) U Hyaline Cast (Auto) (0-2) /LPF Urine Microscopic RBC (0-5) /HPF Urine Microscopic WBC (0-5) /HPF Ur Epithelial Cells (None Seen) /HPF Urine Bacteria (None Seen) /HPF Urine Culture Reflexed (NO) Influenza Type A Ag (NEGATIVE) Influenza Type B Ag (NEGATIVE) RSV (PCR) (NEGATIVE) SARS-CoV-2 (PCR) (NEGATIVE) ABO Group O Rh Factor POSITIVE Antibody Screen NEGATIVE (NEGATIVE) Crossmatch COMPATIBLE COMPATIBLE COMPATIBLE (COMPATIBLE) 09/18/22 09/18/22 Range/Units 12:25 12:25 WBC 7.6 (4.0-10.5) x10^3/uL RBC 1.77 L (4.1-5.6) x10^6/uL Hgb 5.5 L* (12.5-18.0) g/dL Hct 17.4 L (42-50) % MCV 98.3 (78-100) fL MCH 31.1 (26-32) pg MCHC 31.6 L (32-36) g/dL RDW 14.1 H (11.5-14.0) % Plt Count 259 (150-450) x10^3/uL MPV 10.8 (7.5-11.0) fL Smear Path Review Pending Sodium 133 L (137-145) mmol/L Potassium 4.4 (3.5-5.1) mmol/L Chloride 99 (98-107) mmol/L Carbon Dioxide 20 L (22-30) mmol/L Anion Gap 18.6 H (5-15) MEQ/L BUN 39 H (9-20) mg/dL Creatinine 1.44 H (0.66-1.25) mg/dL Estimated GFR 50.6 ML/MIN Glucose 402 H (74-106) mg/dL Lactic Acid (0.4-2.0) Calcium 8.6 (8.4-10.2) mg/dL Total Bilirubin 0.20 (0.2-1.3) mg/dL AST 44 (17-59) U/L ALT 27 (0-50) U/L Alkaline Phosphatase 77 (38-126) U/L Serum Total Protein 5.3 L (6.3-8.2) g/dL Albumin 2.7 L (3.5-5.0) g/dL Amylase 41 (30-110) U/L Lipase 36 (23-300) U/L Urine Color (Yellow) Urine Appearance (Clear) Urine pH (4.6-8.0) Ur Specific Norris (1.005-1.030) Urine Protein (Negative) Urine Glucose (UA) (Negative) mg/dL Urine Ketones (Negative) Urine Blood (Negative) Urine Nitrite (Negative) Urine Bilirubin (Negative) Urine Urobilinogen (0.2) mg/dL Ur Leukocyte Esterase (Negative) U Hyaline Cast (Auto) (0-2) /LPF Urine Microscopic RBC (0-5) /HPF Urine Microscopic WBC (0-5) /HPF Ur Epithelial Cells (None Seen) /HPF Urine Bacteria (None Seen) /HPF Urine Culture Reflexed (NO) Influenza Type A Ag (NEGATIVE) Influenza Type B Ag (NEGATIVE) RSV (PCR) (NEGATIVE) SARS-CoV-2 (PCR) (NEGATIVE) ABO Group Rh Factor Antibody Screen (NEGATIVE) Crossmatch (COMPATIBLE) - Progress Progress: improved, re-examined Progress Note: 09/18/22 14:24 This patient's medical issue is 1 of high complexity. The level of complexity and the work-up performed based on review of the patient's past medical history, review of the patient's medication list, review of the patient's medication allergy list, history of present illness and physical findings on examination. The work-up performed includes placement of intravenous line, infusion of normal saline solution, CBC, CMP, urinalysis, COVID 19 test, influenza A test, influenza B test, RSV test. The results were reviewed by me and I discussed these with the patient. The patient had a 480 blood glucose level and I did infuse 15 units of regular insulin. Patient also had a hemoglobin of 5.3. We typed and crossed this patient for 3 units of packed red blood cells and are transfusing 2 units with a recheck later this afternoon after the second unit of blood has been transfused. I spoke with Dr. David Solano who is the hosp italist covering for the hospital at this time. I reviewed the above-stated patient history and findings on physical examination as well as the results of the work-up and the response of the intervention that I provided the patient. Together, we have decided that the patient would be best served to be placed in the hospital and to receive intravenous fluid, packed red blood cells, sliding scale insulin coverage. He will be on a COVID-19 unit. Patient states and signed that he is a DO NOT RESUSCITATE patient. 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 - Discussion of managment Care discussed with:: on-call "doc" Reviewed:: Test results, Need for additional workup Agreed on:: Treatment plan, decision to admit Will see patient: in hospital - Social Determinants of Health Limited access to: transportation - Diagnostic Testing Diagnostic test were ordered, analyzed, and reviewed by me: Yes - Risk of complications The pt has a high risk of morbidity or mortality based on: Decision regarding hospitilization or escalation of hosp level of care, Decision not to resucitate - Departure Departure Disposition: In-patient Admission Clinical Impression: COVID-19 virus infection, Symptomatic anemia, Hyperglycemia, Blood transfusion during current hospitalisation Condition: Fair Critical Care Time: Yes Critical Care Time(excluding separately billable procedures): Critical 30-74 mins (45) Referrals: FALLON GARCIA [Primary Care Provider] - Follow up/PCP as directed
[2022-09-18] MEDS ORDERED: PROTONIX 40 MG IV IV ONE ×2 (12:20→12:43)
[2022-09-18] MEDS ORDERED: Sodium Chloride 0.9% 1000 ML 1,000 ML IV SCH (12:30)
[2022-09-18 12:36] LABS: Hematocrit 17.4 % (42-50); Mean Cell Volume 98.3 fL (78-100); Mean Corpuscular Hemoglobin 31.1 pg (26-32); Mean Corpuscular Hgb Concent. 31.6 g/dL (32-36); Mean Platelet Volume 10.8 fL (7.5-11.0); Platelet Count 259 x10^3/uL (150-450); Red Blood Count 1.77 x10^6/uL (4.1-5.6); Red Cell Distribution Width 14.1 % (11.5-14.0); White Blood Count 7.6 x10^3/uL (4.0-10.5)
[2022-09-18] MEDS ORDERED: Sodium Chloride 0.9% 1000 ML 1,000 ML ONE (12:43)
[2022-09-18 12:47] LABS: ALBUMIN 2.7 g/dL (3.5-5.0); ANION GAP 18.6 MEQ/L (5-15); BILIRUBIN,TOTAL 0.2 mg/dL (0.2-1.3); Calcium 8.6 mg/dL (8.4-10.2); Creatinine 1 1.44 mg/dL (0.66-1.25); EST GLOMERULAR FILTRATION RATE 50.6 ML/MIN; Potassium 4.4 mmol/L (3.5-5.1); Total Protein 5.3 g/dL (6.3-8.2)
[2022-09-18 12:48] LABS: Hemoglobin 5.5 g/dL (12.5-18.0)
[2022-09-18 13:16] LABS: Appearance Clear (Clear); Bacteria None Seen /HPF (None Seen); Bilirubin Negative (Negative); Blood Negative (Negative); Epithelial Cells None Seen /HPF (None Seen); Glucose, Urine >=1000 mg/dL (Negative); Hyaline Casts NONE SEEN /LPF (0-2); Ketones Negative (Negative); Leukocyte Esterase Negative (Negative); Nitrite Negative (Negative); Ph 7.5 (4.6-8.0); Protein,Urine Dip Negative (Negative); RBC 0-2 /HPF (0-5); Urobilinogen 0.2 mg/dL (0.2)
[2022-09-18 13:28] LABS: ADD URINE CULTURE? ORDERED SEPARATELY (NO)
[2022-09-18 13:33] LABS: ABO TYPING O; Antibody Screen NEGATIVE (NEGATIVE); RH TYPING POSITIVE
[2022-09-18] MEDS ORDERED: HUMULIN R IV ONE (13:42)
[2022-09-18 13:47] LABS: CROSS MATCH (PRBC) COMPATIBLE (COMPATIBLE)
[2022-09-18 13:48] LABS: CROSS MATCH (PRBC) COMPATIBLE (COMPATIBLE)
[2022-09-18 13:52] LABS: INFLUENZA A NEGATIVE (NEGATIVE); INFLUENZA B NEGATIVE (NEGATIVE); RESPIRATORY SYNCTIAL VIRUS NEGATIVE (NEGATIVE)
[2022-09-18 13:55] LABS: SARS-CoV-2 Xpert Express POSITIVE (NEGATIVE)
[2022-09-18] MEDS ORDERED: HUMULIN R ONE (14:13)
[2022-09-18 14:34] LABS: Basophil 1 % (0.0-1.0); Eosinophil 4 % (0.00-3.0); Lymphocytes 23 % (24-44); Macrocytosis 1+; Microcytosis 1+; Monocyte 1 % (0.0-12.0); Neutrophils 71 % (36.-66.); Nucleated Red Blood Cell 3 %; Platelet Estimate NORMAL (NORMAL); Total Cells Counted 100
[2022-09-18] MEDS ORDERED: Zofran 4 MG/2 ML VIAL IV PRN (15:16)
[2022-09-18] MEDS ORDERED: TYLENOL 325 MG PO PRN (15:16)
[2022-09-18] MEDS: Sodium Chloride 0.9% 1000 ML 1,000 ML IV SCH (16:23)
[2022-09-18] MEDS: HUMULIN R SQ PRN ×2 (16:52→21:52)
[2022-09-18] MEDS ORDERED: Lasix 20 MG/2 ML IV ONE (17:00)
[2022-09-18] MEDS ORDERED: Lasix 20 MG/2 ML IV PRN (17:01)
[2022-09-18] MEDS: ZENPEP DR 5,000 UNIT CAPSULE PO SCH ×2 (17:30→21:52)
[2022-09-18] MEDS: SYNTHROID 50 MCG PO SCH (18:08)
[2022-09-18] MEDS ORDERED: VENTOLIN COMMON CANISTER IH SCH (19:00)
[2022-09-18 21:46] LABS: Hematocrit 25.2 % (42-50)
[2022-09-18 21:47] LABS: Hemoglobin 8.2 g/dL (12.5-18.0)
[2022-09-18] MEDS: NORVASC 5 MG PO SCH (21:52)
[2022-09-18] MEDS ORDERED: AMYLASE PO SCH (22:00)
[2022-09-18] MEDS ORDERED: LIPASE PO SCH (22:00)
[2022-09-18] MEDS ORDERED: Ventolin Hfa MDI IH SCH (22:00)
[2022-09-18] MEDS ORDERED: [UNRECOGNIZED DRUG - OTHER] PO SCH (22:00)
[2022-09-18] MEDS ORDERED: PROTEASE PO SCH (22:00)
[2022-09-19 05:08] LABS: Absolute Neutrophil Ct (ANC) 5.99 x10^3/uL (1.4-6.9); BASOPHIL % 0.6 % (0.0-0.4); Basophil (Absolute #) 0.05 x10^3/uL (0-0.4); Eosinophil (Absolute #) 0.09 x10^3/uL (0-0.5); Hematocrit 23.7 % (42-50); Hemoglobin 7.7 g/dL (12.5-18.0); IMMATURE GRAN # 0.05 x10^3u/L (0.00-0.03); IMMATURE GRAN % 0.6 % (0.00-0.4); Lymphocyte (Absolute #) 1.76 x10^3/uL (1.0-4.6); Lymphocytes % 19.7 % (24.0-44.0); Mean Cell Volume 88.4 fL (78-100); Mean Corpuscular Hemoglobin 28.7 pg (26-32); Mean Corpuscular Hgb Concent. 32.5 g/dL (32-36); Monocyte (Absolute #) 0.98 x10^3/uL (0.0-1.3); Neutrophil % 67.1 % (36.0-66.0); Platelet Count 212 x10^3/uL (150-450); Red Blood Count 2.68 x10^6/uL (4.1-5.6); Red Cell Distribution Width 16.6 % (11.5-14.0); White Blood Count 8.9 x10^3/uL (4.0-10.5)
[2022-09-19 05:30] LABS: ALBUMIN 2.7 g/dL (3.5-5.0); ANION GAP 11.2 MEQ/L (5-15); BILIRUBIN,TOTAL 0.6 mg/dL (0.2-1.3); Calcium 8.6 mg/dL (8.4-10.2); Creatinine 1 1.75 mg/dL (0.66-1.25); EST GLOMERULAR FILTRATION RATE 40.4 ML/MIN; Potassium 3.6 mmol/L (3.5-5.1); Total Protein 5.4 g/dL (6.3-8.2)
[2022-09-19] MEDS: PROTONIX 40 MG IV*** 80 MG in Sodium Chloride 0.9% 500 ML 500 ML IV SCH ×2 (07:35→16:27)
[2022-09-19] MEDS: Sodium Chloride 0.9% 1000 ML 1,000 ML IV SCH (07:35)
[2022-09-19] MEDS: ZENPEP DR 5,000 UNIT CAPSULE PO SCH ×4 (07:48→21:06)
[2022-09-19] MEDS: NORVASC 5 MG PO SCH ×2 (08:27→21:07)
[2022-09-19] MEDS: SYNTHROID 50 MCG PO SCH (11:31)
[2022-09-19] MEDS: DELTASONE 5 MG PO SCH (12:26)
--- NOTE | 2022-09-19 12:45 | PCM.HP ---
History of Present Illness - Chief Complaint Chief Complaint: COVID-19 infection, anemia History of Present Illness: is a 77 year old male pt of Dr. Patrizia Tomas with hx pancreatic ca (last chemo 1 mo ago), HTN, HLD, DM uncontrolled, sarcoidosis who came in to ER with weakness and dark stools. Hgb was 5.5 and covid +. He was admitted and given 2 units PRBC. Has continued to have some tarry stools. Three days ago had some black stools, next day vomited x 1 (was red, but he had eaten something red). Had a little SOB and diffuse weakness, no bruising. Had Nosebleed yesterday and felt "terrible." brought in by EMS. No prior hx GI bleed. Had EGD October 2020 when pancreatic ca was dx (sugery in November 2020). Last colonoscopy > 5 yrs ago, he thinks here by Dr. Reddy. Curretnly he is feeling okay, just cold. Denies taking ibuprofen or naproxen. Sees Dr. Joe for the cancer and is taking a break from the chemo currently. - Review of Systems Constitutional: Weakness Abdominal/Gastrointestinal: Vomiting, Diarrhea, Melena All Other Systems: Reviewed and Negative Medications & Allergies Home Medications: Home Medication List Albuterol 8 gm Mdi Hfa [Ventolin Hfa MDI] 2 puffs IH QID 09/18/22 [History Confirmed 09/18/22] Amlodipine Besylate [Norvasc] 5 mg PO BID 09/18/22 [History Confirmed 09/18/22] Glipizide 10 mg [Glucotrol 10 MG] 10 mg PO DAILY 09/18/22 [History Confirmed 09/18/22] Levothyroxine Sodium 50 mcg PO DAILY 09/18/22 [History Confirmed 09/18/22] Lipase/Protease/Amylase [Juarez Almendarez 6,000 Unit Capsule] 1 cap PO QID 09/18/22 [History Confirmed 09/18/22] Metformin HCl 500 mg [Glucophage 500 MG] 500 mg PO BIDWM 09/18/22 [History Confirmed 09/18/22] Prednisone 10 mg [Deltasone 10 mg] 5 mg PO DAILY 09/18/22 [History Confirmed 09/18/22] Allergies/Adverse Reactions: Allergies Allergy/AdvReac Type Severity Reaction Status Date / Time No Known Drug Allergies Allergy Verified 09/18/22 12:27 - Past Medical History Past Medical History: Yes Neurological History: No Pertinent History ENT History: No Pertinent History Cardiac History: High Cholesterol, Hypertension Respiratory History: Other Endocrine Medical History: Hypothyroidism Musculoskelatal History: No Pertinent History GI Medical History: No Pertinent History History: No Pertinent History Pyscho-Social History: No Pertinent History Male Reproductive Disorders: No Pertinent History Comment: 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 - Social History Smoking Status: Former smoker Exposure to second hand smoke: No Alcohol: None Drug Use: none - Physical Exam Vital Signs: Vital Signs - 24 hr Temp Pulse Resp BP Pulse Ox 09/19/22 11:53 98.8 F 84 16 99/59 96 09/19/22 07:48 98.7 F 86 18 98/60 98 09/19/22 07:05 95 09/19/22 04:00 98.9 F 93 H 20 100/60 97 09/18/22 23:31 98 F 92 H 29 H 97/64 95 09/18/22 20:00 98.1 F 90 16 107/73 97 09/18/22 19:24 97 09/18/22 15:46 98 09/18/22 15:24 98 F 83 100/60 09/18/22 14:09 85 18 100/67 99 General Appearance: no apparent distress, thin Neurologic Exam: alert, oriented x 3, cooperative Eye Exam: eyes nml inspection Ears, Nose, Throat Exam: moist mucous membranes Neck Exam: normal inspection, non-tender, No lymphadenopathy, No subcutaneous emphysema, No thyromegaly Respiratory Exam: normal breath sounds, lungs clear, No crackles/rales, No rhonchi, No wheezing Cardiovascular Exam: regular rate/rhythm, normal heart sounds, No murmur Gastrointestinal/Abdomen Exam: soft, normal bowel sounds, other (midline linear wound from approx sternum to umbilicus), No tenderness, No distention, No mass, No guarding, No rebound Extremity Exam: normal inspection, No pedal edema, No swelling Skin Exam: normal color, warm, dry, No rash Results - Labs Lab/Micro Results: Lab Results-Last 24 Hours 09/18/22 09/18/22 09/18/22 Range/Units 12:25 12:25 12:25 WBC 7.6 (4.0-10.5) x10^3/uL RBC 1.77 L (4.1-5.6) x10^6/uL Hgb 5.5 L* (12.5-18.0) g/dL Hct 17.4 L (42-50) % MCV 98.3 (78-100) fL MCH 31.1 (26-32) pg MCHC 31.6 L (32-36) g/dL RDW 14.1 H (11.5-14.0) % Plt Count 259 (150-450) x10^3/uL MPV 10.8 (7.5-11.0) fL Gran % (36.0-66.0) % Immature Gran % (Auto) (0.00-0.4) % Nucleat RBC Rel Count (0.00-0.1) % Eos # (Auto) (0-0.5) x10^3/uL Immature Gran # (Auto) (0.00-0.03) x10^3u/L Absolute Lymphs (auto) (1.0-4.6) x10^3/uL Absolute Monos (auto) (0.0-1.3) x10^3/uL Absolute Nucleated RBC (0.00-0.01) x10^3u/L Lymphocytes % (24.0-44.0) % Monocytes % (0.0-12.0) % Eosinophils % (0.00-5.0) % Basophils % (0.0-0.4) % Absolute Granulocytes (1.4-6.9) x10^3/uL Segmented Neutrophils 71 H (36.-66.) % Lymphocytes (Manual) 23 L (24-44) % Monocytes (Manual) 1 (0.0-12.0) % Eosinophils (Manual) 4 H (0.00-3.0) % Basophils (Manual) 1 (0.0-1.0) % Basophils # (0-0.4) x10^3/uL Nucleated RBCs 3 % Platelet Estimate NORMAL (NORMAL) RBC Morphology ABNORMAL Microcytosis 1+ Macrocytosis 1+ Smear Path Review Pending Sodium 133 L (137-145) mmol/L Potassium 4.4 (3.5-5.1) mmol/L Chloride 99 (98-107) mmol/L Carbon Dioxide 20 L (22-30) mmol/L Anion Gap 18.6 H (5-15) MEQ/L BUN 39 H (9-20) mg/dL Creatinine 1.44 H (0.66-1.25) mg/dL Estimated GFR 50.6 ML/MIN Glucose 402 H (74-106) mg/dL POC Glucometer (74 to 106) mg/dL Lactic Acid (0.4-2.0) Calcium 8.6 (8.4-10.2) mg/dL Total Bilirubin 0.20 (0.2-1.3) mg/dL AST 44 (17-59) U/L ALT 27 (0-50) U/L Alkaline Phosphatase 77 (38-126) U/L NT-Pro-B Natriuret Pep (<300) pg/mL Serum Total Protein 5.3 L (6.3-8.2) g/dL Albumin 2.7 L (3.5-5.0) g/dL Amylase 41 (30-110) U/L Lipase 36 (23-300) U/L Urine Color (Yellow) Urine Appearance (Clear) Urine pH (4.6-8.0) Ur Specific [place] (1.005-1.030) Urine Protein (Negative) Urine Glucose (UA) (Negative) mg/dL Urine Ketones (Negative) Urine Blood (Negative) Urine Nitrite (Negative) Urine Bilirubin (Negative) Urine Urobilinogen (0.2) mg/dL Ur Leukocyte Esterase (Negative) U Hyaline Cast (Auto) (0-2) /LPF Urine Microscopic RBC (0-5) /HPF Urine Microscopic WBC (0-5) /HPF Ur Epithelial Cells (None Seen) /HPF Urine Bacteria (None Seen) /HPF Urine Culture Reflexed (NO) Influenza Type A Ag (NEGATIVE) Influenza Type B Ag (NEGATIVE) RSV (PCR) (NEGATIVE) SARS-CoV-2 (PCR) (NEGATIVE) ABO Group O Rh Factor POSITIVE Antibody Screen NEGATIVE (NEGATIVE) Crossmatch COMPATIBLE (COMPATIBLE) 09/18/22 09/18/22 09/18/22 Range/Units 12:25 12:25 12:41 WBC (4.0-10.5) x10^3/uL RBC (4.1-5.6) x10^6/uL Hgb (12.5-18.0) g/dL Hct (42-50) % MCV (78-100) fL MCH (26-32) pg MCHC (32-36) g/dL RDW (11.5-14.0) % Plt Count (150-450) x10^3/uL MPV (7.5-11.0) fL Gran % (36.0-66.0) % Immature Gran % (Auto) (0.00-0.4) % Nucleat RBC Rel Count (0.00-0.1) % Eos # (Auto) (0-0.5) x10^3/uL Immature Gran # (Auto) (0.00-0.03) x10^3u/L Absolute Lymphs (auto) (1.0-4.6) x10^3/uL Absolute Monos (auto) (0.0-1.3) x10^3/uL Absolute Nucleated RBC (0.00-0.01) x10^3u/L Lymphocytes % (24.0-44.0) % Monocytes % (0.0-12.0) % Eosinophils % (0.00-5.0) % Basophils % (0.0-0.4) % Absolute Granulocytes (1.4-6.9) x10^3/uL Segmented Neutrophils (36.-66.) % Lymphocytes (Manual) (24-44) % Monocytes (Manual) (0.0-12.0) % Eosinophils (Manual) (0.00-3.0) % Basophils (Manual) (0.0-1.0) % Basophils # (0-0.4) x10^3/uL Nucleated RBCs % Platelet Estimate (NORMAL) RBC Morphology Microcytosis Macrocytosis Smear Path Review Sodium (137-145) mmol/L Potassium (3.5-5.1) mmol/L Chloride (98-107) mmol/L Carbon Dioxide (22-30) mmol/L Anion Gap (5-15) MEQ/L BUN (9-20) mg/dL Creatinine (0.66-1.25) mg/dL Estimated GFR ML/MIN Glucose (74-106) mg/dL POC Glucometer (74 to 106) mg/dL Lactic Acid (0.4-2.0) Calcium (8.4-10.2) mg/dL Total Bilirubin (0.2-1.3) mg/dL AST (17-59) U/L ALT (0-50) U/L Alkaline Phosphatase (38-126) U/L NT-Pro-B Natriuret Pep (<300) pg/mL Serum Total Protein (6.3-8.2) g/dL Albumin (3.5-5.0) g/dL Amylase (30-110) U/L Lipase (23-300) U/L Urine Color Yellow (Yellow) Urine Appearance Clear (Clear) Urine pH 7.5 (4.6-8.0) Ur Specific [place] 1.020 (1.005-1.030) Urine Protein Negative (Negative) Urine Glucose (UA) >=1000 A (Negative) mg/dL Urine Ketones Negative (Negative) Urine Blood Negative (Negative) Urine Nitrite Negative (Negative) Urine Bilirubin Negative (Negative) Urine Urobilinogen 0.2 (0.2) mg/dL Ur Leukocyte Esterase Negative (Negative) U Hyaline Cast (Auto) NONE SEEN (0-2) /LPF Urine Microscopic RBC 0-2 (0-5) /HPF Urine Microscopic WBC 3-5 (0-5) /HPF Ur Epithelial Cells None Seen (None Seen) /HPF Urine Bacteria None Seen (None Seen) /HPF Urine Culture Reflexed ORDERED SEPARATELY (NO) Influenza Type A Ag (NEGATIVE) Influenza Type B Ag (NEGATIVE) RSV (PCR) (NEGATIVE) SARS-CoV-2 (PCR) (NEGATIVE) ABO Group Rh Factor Antibody Screen (NEGATIVE) Crossmatch COMPATIBLE COMPATIBLE (COMPATIBLE) 09/18/22 09/18/22 09/18/22 Range/Units 12:50 12:51 14:56 WBC (4.0-10.5) x10^3/uL RBC (4.1-5.6) x10^6/uL Hgb (12.5-18.0) g/dL Hct (42-50) % MCV (78-100) fL MCH (26-32) pg MCHC (32-36) g/dL RDW (11.5-14.0) % Plt Count (150-450) x10^3/uL MPV (7.5-11.0) fL Gran % (36.0-66.0) % Immature Gran % (Auto) (0.00-0.4) % Nucleat RBC Rel Count (0.00-0.1) % Eos # (Auto) (0-0.5) x10^3/uL Immature Gran # (Auto) (0.00-0.03) x10^3u/L Absolute Lymphs (auto) (1.0-4.6) x10^3/uL Absolute Monos (auto) (0.0-1.3) x10^3/uL Absolute Nucleated RBC (0.00-0.01) x10^3u/L Lymphocytes % (24.0-44.0) % Monocytes % (0.0-12.0) % Eosinophils % (0.00-5.0) % Basophils % (0.0-0.4) % Absolute Granulocytes (1.4-6.9) x10^3/uL Segmented Neutrophils (36.-66.) % Lymphocytes (Manual) (24-44) % Monocytes (Manual) (0.0-12.0) % Eosinophils (Manual) (0.00-3.0) % Basophils (Manual) (0.0-1.0) % Basophils # (0-0.4) x10^3/uL Nucleated RBCs % Platelet Estimate (NORMAL) RBC Morphology Microcytosis Macrocytosis Smear Path Review Sodium (137-145) mmol/L Potassium (3.5-5.1) mmol/L Chloride (98-107) mmol/L Carbon Dioxide (22-30) mmol/L Anion Gap (5-15) MEQ/L BUN (9-20) mg/dL Creatinine (0.66-1.25) mg/dL Estimated GFR ML/MIN Glucose (74-106) mg/dL POC Glucometer (74 to 106) mg/dL Lactic Acid 7.9 H 4.9 H (0.4-2.0) Calcium (8.4-10.2) mg/dL Total Bilirubin (0.2-1.3) mg/dL AST (17-59) U/L ALT (0-50) U/L Alkaline Phosphatase (38-126) U/L NT-Pro-B Natriuret Pep (<300) pg/mL Serum Total Protein (6.3-8.2) g/dL Albumin (3.5-5.0) g/dL Amylase (30-110) U/L Lipase (23-300) U/L Urine Color (Yellow) Urine Appearance (Clear) Urine pH (4.6-8.0) Ur Specific [place] (1.005-1.030) Urine Protein (Negative) Urine Glucose (UA) (Negative) mg/dL Urine Ketones (Negative) Urine Blood (Negative) Urine Nitrite (Negative) Urine Bilirubin (Negative) Urine Urobilinogen (0.2) mg/dL Ur Leukocyte Esterase (Negative) U Hyaline Cast (Auto) (0-2) /LPF Urine Microscopic RBC (0-5) /HPF Urine Microscopic WBC (0-5) /HPF Ur Epithelial Cells (None Seen) /HPF Urine Bacteria (None Seen) /HPF Urine Culture Reflexed (NO) Influenza Type A Ag NEGATIVE (NEGATIVE) Influenza Type B Ag NEGATIVE (NEGATIVE) RSV (PCR) NEGATIVE (NEGATIVE) SARS-CoV-2 (PCR) POSITIVE A (NEGATIVE) ABO Group Rh Factor Antibody Screen (NEGATIVE) Crossmatch (COMPATIBLE) 09/18/22 09/18/22 09/18/22 Range/Units 16:43 20:41 21:40 WBC (4.0-10.5) x10^3/uL RBC (4.1-5.6) x10^6/uL Hgb 8.2 L D (12.5-18.0) g/dL Hct 25.2 L (42-50) % MCV (78-100) fL MCH (26-32) pg MCHC (32-36) g/dL RDW (11.5-14.0) % Plt Count (150-450) x10^3/uL MPV (7.5-11.0) fL Gran % (36.0-66.0) % Immature Gran % (Auto) (0.00-0.4) % Nucleat RBC Rel Count (0.00-0.1) % Eos # (Auto) (0-0.5) x10^3/uL Immature Gran # (Auto) (0.00-0.03) x10^3u/L Absolute Lymphs (auto) (1.0-4.6) x10^3/uL Absolute Monos (auto) (0.0-1.3) x10^3/uL Absolute Nucleated RBC (0.00-0.01) x10^3u/L Lymphocytes % (24.0-44.0) % Monocytes % (0.0-12.0) % Eosinophils % (0.00-5.0) % Basophils % (0.0-0.4) % Absolute Granulocytes (1.4-6.9) x10^3/uL Segmented Neutrophils (36.-66.) % Lymphocytes (Manual) (24-44) % Monocytes (Manual) (0.0-12.0) % Eosinophils (Manual) (0.00-3.0) % Basophils (Manual) (0.0-1.0) % Basophils # (0-0.4) x10^3/uL Nucleated RBCs % Platelet Estimate (NORMAL) RBC Morphology Microcytosis Macrocytosis Smear Path Review Sodium (137-145) mmol/L Potassium (3.5-5.1) mmol/L Chloride (98-107) mmol/L Carbon Dioxide (22-30) mmol/L Anion Gap (5-15) MEQ/L BUN (9-20) mg/dL Creatinine (0.66-1.25) mg/dL Estimated GFR ML/MIN Glucose (74-106) mg/dL POC Glucometer 254 H 274 H (74 to 106) mg/dL Lactic Acid (0.4-2.0) Calcium (8.4-10.2) mg/dL Total Bilirubin (0.2-1.3) mg/dL AST (17-59) U/L ALT (0-50) U/L Alkaline Phosphatase (38-126) U/L NT-Pro-B Natriuret Pep (<300) pg/mL Serum Total Protein (6.3-8.2) g/dL Albumin (3.5-5.0) g/dL Amylase (30-110) U/L Lipase (23-300) U/L Urine Color (Yellow) Urine Appearance (Clear) Urine pH (4.6-8.0) Ur Specific [place] (1.005-1.030) Urine Protein (Negative) Urine Glucose (UA) (Negative) mg/dL Urine Ketones (Negative) Urine Blood (Negative) Urine Nitrite (Negative) Urine Bilirubin (Negative) Urine Urobilinogen (0.2) mg/dL Ur Leukocyte Esterase (Negative) U Hyaline Cast (Auto) (0-2) /LPF Urine Microscopic RBC (0-5) /HPF Urine Microscopic WBC (0-5) /HPF Ur Epithelial Cells (None Seen) /HPF Urine Bacteria (None Seen) /HPF Urine Culture Reflexed (NO) Influenza Type A Ag (NEGATIVE) Influenza Type B Ag (NEGATIVE) RSV (PCR) (NEGATIVE) SARS-CoV-2 (PCR) (NEGATIVE) ABO Group Rh Factor Antibody Screen (NEGATIVE) Crossmatch (COMPATIBLE) 09/19/22 09/19/22 09/19/22 Range/Units 04:22 04:22 05:40 WBC 8.9 (4.0-10.5) x10^3/uL RBC 2.68 L (4.1-5.6) x10^6/uL Hgb 7.7 L (12.5-18.0) g/dL Hct 23.7 L (42-50) % MCV 88.4 D (78-100) fL MCH 28.7 (26-32) pg MCHC 32.5 (32-36) g/dL RDW 16.6 H (11.5-14.0) % Plt Count 212 (150-450) x10^3/uL MPV 11.0 (7.5-11.0) fL Gran % 67.1 H (36.0-66.0) % Immature Gran % (Auto) 0.6 H (0.00-0.4) % Nucleat RBC Rel Count 0.0 (0.00-0.1) % Eos # (Auto) 0.09 (0-0.5) x10^3/uL Immature Gran # (Auto) 0.05 H (0.00-0.03) x10^3u/L Absolute Lymphs (auto) 1.76 (1.0-4.6) x10^3/uL Absolute Monos (auto) 0.98 (0.0-1.3) x10^3/uL Absolute Nucleated RBC 0.00 (0.00-0.01) x10^3u/L Lymphocytes % 19.7 L (24.0-44.0) % Monocytes % 11.0 (0.0-12.0) % Eosinophils % 1.0 (0.00-5.0) % Basophils % 0.6 (0.0-0.4) % Absolute Granulocytes 5.99 (1.4-6.9) x10^3/uL Segmented Neutrophils (36.-66.) % Lymphocytes (Manual) (24-44) % Monocytes (Manual) (0.0-12.0) % Eosinophils (Manual) (0.00-3.0) % Basophils (Manual) (0.0-1.0) % Basophils # 0.05 (0-0.4) x10^3/uL Nucleated RBCs % Platelet Estimate (NORMAL) RBC Morphology Microcytosis Macrocytosis Smear Path Review Sodium 134 L (137-145) mmol/L Potassium 3.6 (3.5-5.1) mmol/L Chloride 100 (98-107) mmol/L Carbon Dioxide 27 (22-30) mmol/L Anion Gap 11.2 (5-15) MEQ/L BUN 42 H (9-20) mg/dL Creatinine 1.75 H (0.66-1.25) mg/dL Estimated GFR 40.4 ML/MIN Glucose 81 (74-106) mg/dL POC Glucometer (74 to 106) mg/dL Lactic Acid 1.6 (0.4-2.0) Calcium 8.6 (8.4-10.2) mg/dL Total Bilirubin 0.60 (0.2-1.3) mg/dL AST 29 (17-59) U/L ALT 22 (0-50) U/L Alkaline Phosphatase 58 (38-126) U/L NT-Pro-B Natriuret Pep 684 (<300) pg/mL Serum Total Protein 5.4 L (6.3-8.2) g/dL Albumin 2.7 L (3.5-5.0) g/dL Amylase (30-110) U/L Lipase (23-300) U/L Urine Color (Yellow) Urine Appearance (Clear) Urine pH (4.6-8.0) Ur Specific [place] (1.005-1.030) Urine Protein (Negative) Urine Glucose (UA) (Negative) mg/dL Urine Ketones (Negative) Urine Blood (Negative) Urine Nitrite (Negative) Urine Bilirubin (Negative) Urine Urobilinogen (0.2) mg/dL Ur Leukocyte Esterase (Negative) U Hyaline Cast (Auto) (0-2) /LPF Urine Microscopic RBC (0-5) /HPF Urine Microscopic WBC (0-5) /HPF Ur Epithelial Cells (None Seen) /HPF Urine Bacteria (None Seen) /HPF Urine Culture Reflexed (NO) Influenza Type A Ag (NEGATIVE) Influenza Type B Ag (NEGATIVE) RSV (PCR) (NEGATIVE) SARS-CoV-2 (PCR) (NEGATIVE) ABO Group Rh Factor Antibody Screen (NEGATIVE) Crossmatch (COMPATIBLE) 09/19/22 Range/Units 11:47 WBC (4.0-10.5) x10^3/uL RBC (4.1-5.6) x10^6/uL Hgb (12.5-18.0) g/dL Hct (42-50) % MCV (78-100) fL MCH (26-32) pg MCHC (32-36) g/dL RDW (11.5-14.0) % Plt Count (150-450) x10^3/uL MPV (7.5-11.0) fL Gran % (36.0-66.0) % Immature Gran % (Auto) (0.00-0.4) % Nucleat RBC Rel Count (0.00-0.1) % Eos # (Auto) (0-0.5) x10^3/uL Immature Gran # (Auto) (0.00-0.03) x10^3u/L Absolute Lymphs (auto) (1.0-4.6) x10^3/uL Absolute Monos (auto) (0.0-1.3) x10^3/uL Absolute Nucleated RBC (0.00-0.01) x10^3u/L Lymphocytes % (24.0-44.0) % Monocytes % (0.0-12.0) % Eosinophils % (0.00-5.0) % Basophils % (0.0-0.4) % Absolute Granulocytes (1.4-6.9) x10^3/uL Segmented Neutrophils (36.-66.) % Lymphocytes (Manual) (24-44) % Monocytes (Manual) (0.0-12.0) % Eosinophils (Manual) (0.00-3.0) % Basophils (Manual) (0.0-1.0) % Basophils # (0-0.4) x10^3/uL Nucleated RBCs % Platelet Estimate (NORMAL) RBC Morphology Microcytosis Macrocytosis Smear Path Review Sodium (137-145) mmol/L Potassium (3.5-5.1) mmol/L Chloride (98-107) mmol/L Carbon Dioxide (22-30) mmol/L Anion Gap (5-15) MEQ/L BUN (9-20) mg/dL Creatinine (0.66-1.25) mg/dL Estimated GFR ML/MIN Glucose (74-106) mg/dL POC Glucometer 129 H (74 to 106) mg/dL Lactic Acid (0.4-2.0) Calcium (8.4-10.2) mg/dL Total Bilirubin (0.2-1.3) mg/dL AST (17-59) U/L ALT (0-50) U/L Alkaline Phosphatase (38-126) U/L NT-Pro-B Natriuret Pep (<300) pg/mL Serum Total Protein (6.3-8.2) g/dL Albumin (3.5-5.0) g/dL Amylase (30-110) U/L Lipase (23-300) U/L Urine Color (Yellow) Urine Appearance (Clear) Urine pH (4.6-8.0) Ur Specific [place] (1.005-1.030) Urine Protein (Negative) Urine Glucose (UA) (Negative) mg/dL Urine Ketones (Negative) Urine Blood (Negative) Urine Nitrite (Negative) Urine Bilirubin (Negative) Urine Urobilinogen (0.2) mg/dL Ur Leukocyte Esterase (Negative) U Hyaline Cast (Auto) (0-2) /LPF Urine Microscopic RBC (0-5) /HPF Urine Microscopic WBC (0-5) /HPF Ur Epithelial Cells (None Seen) /HPF Urine Bacteria (None Seen) /HPF Urine Culture Reflexed (NO) Influenza Type A Ag (NEGATIVE) Influenza Type B Ag (NEGATIVE) RSV (PCR) (NEGATIVE) SARS-CoV-2 (PCR) (NEGATIVE) ABO Group Rh Factor Antibody Screen (NEGATIVE) Crossmatch (COMPATIBLE) Microbiology 09/18/22 12:41 Urine Culture - Preliminary Catherized NO GROWTH TO DATE Accuchecks Date 09/18/22 Time 16:46 Assessment/Plan (1) GI bleed Current Visit: Yes Status: Acute Qualifiers: GI bleed type/associated pathology: unspecified gastrointestinal hemorrhage type Qualified Code(s): K92.2 - Gastrointestinal hemorrhage, unspecified Assessment & Plan: consulting surgery, thank you. On protonix drip. CLD currently. Code(s): K92.2 - GASTROINTESTINAL HEMORRHAGE, UNSPECIFIED (2) Acute renal failure (ARF) Current Visit: Yes Status: Acute Qualifiers: Acute renal failure type: unspecified Qualified Code(s): N17.9 - Acute kidney failure, unspecified Assessment & Plan: Will increase fluids now that blood has been transfused. (3) Blood transfusion during current hospitalisation Current Visit: Yes Status: Acute Assessment & Plan: 2 units PRBC Code(s): NBC2927 - (4) COVID-19 virus infection Current Visit: Yes Status: Acute Assessment & Plan: had sniffles Code(s): U07.1 - COVID-19 (5) Hyperglycemia Current Visit: Yes Status: Chronic Code(s): R73.9 - HYPERGLYCEMIA, UNSPECIFIED (6) Symptomatic anemia Current Visit: Yes Status: Resolved Code(s): D64.9 - ANEMIA, UNSPECIFIED (7) HTN (hypertension) Current Visit: No Status: Chronic Qualifiers: Hypertension type: primary hypertension Qualified Code(s): I10 - Essential (primary) hypertension Assessment & Plan: holding amlodipine, bp too low Code(s): I10 - ESSENTIAL (PRIMARY) HYPERTENSION (8) Sarcoidosis Current Visit: No Status: Chronic Code(s): D86.9 - SARCOIDOSIS, UNSPECIFIED (9) Hx of malignant neoplasm of pancreas Current Visit: No Status: Chronic Assessment & Plan: just temporary cessation of chemo, according to pt Code(s): Z85.07 - PERSONAL HISTORY OF MALIGNANT NEOPLASM OF PANCREAS (10) Diabetes mellitus type II, uncontrolled Current Visit: Yes Status: Chronic Qualifiers: Glycemic state: with hyperglycemia Qualified Code(s): E11.65 - Type 2 diabetes mellitus with hyperglycemia Code(s): [id number] -
[2022-09-19] MEDS: HUMULIN R SQ PRN (21:43)
[2022-09-20] MEDS: Sodium Chloride 0.9% 1000 ML 1,000 ML IV SCH (01:33)
[2022-09-20] MEDS: PROTONIX 40 MG IV*** 80 MG in Sodium Chloride 0.9% 500 ML 500 ML IV SCH ×2 (02:21→18:59)
[2022-09-20 05:25] LABS: Calcium 7.9 mg/dL (8.4-10.2); Creatinine 1 1.84 mg/dL (0.66-1.25); EST GLOMERULAR FILTRATION RATE 38.1 ML/MIN
[2022-09-20 05:27] LABS: Hematocrit 18.6 % (42-50); Mean Cell Volume 90.7 fL (78-100); Mean Corpuscular Hemoglobin 29.8 pg (26-32); Mean Corpuscular Hgb Concent. 32.8 g/dL (32-36); Mean Platelet Volume 10.7 fL (7.5-11.0); Platelet Count 173 x10^3/uL (150-450); Red Blood Count 2.05 x10^6/uL (4.1-5.6); Red Cell Distribution Width 17.1 % (11.5-14.0); White Blood Count 5.9 x10^3/uL (4.0-10.5)
[2022-09-20 05:34] LABS: Hemoglobin 6.1 g/dL (12.5-18.0)
[2022-09-20] MEDS: ZENPEP DR 5,000 UNIT CAPSULE PO SCH ×4 (07:22→22:43)
--- NOTE | 2022-09-20 08:47 | PCM.NOTE ---
Date and Time: 09/20/22 08 Subjective Assessment: Pt's hgb was 6.1 this morning so is receiving 2 units of blood currently. No complaints. - Review of Systems Constitutional: No Fever Abdominal/Gastrointestinal: No Vomiting Objective Exam General Appearance: no apparent distress, thin Neurologic Exam: alert, oriented x 3, cooperative Skin Exam: warm, dry, pale, No rash Eye Exam: eyes nml inspection Ears, Nose, Throat Exam: moist mucous membranes Neck Exam: normal inspection Respiratory Exam: normal breath sounds, lungs clear, No crackles/rales, No rhonchi, No wheezing Cardiovascular Exam: regular rate/rhythm, normal heart sounds, No murmur Gastrointestinal/Abdomen Exam: soft, No normal bowel sounds (hypoactive but present), No tenderness, No distention, No mass, No guarding, No rebound Extremity Exam: normal inspection, No pedal edema, No swelling Back Exam: normal inspection, No rash OBJECTIVE DATA Vital Signs: Vital Signs - 24 hr Temp Pulse Resp BP Pulse Ox 09/20/22 07:15 98.0 F 61 109/64 09/20/22 07:05 98.9 F 68 16 109/65 99 09/20/22 06:09 98 09/20/22 04:00 97.4 F 73 20 95/60 97 09/19/22 23:49 97.6 F 80 17 93/60 97 09/19/22 19:52 97.9 F 80 18 97/60 100 09/19/22 19:38 100 09/19/22 15:45 98.4 F 88 16 115/63 97 09/19/22 11:53 98.8 F 84 16 99/59 96 Pain Assessment - Last Documented Pain Intensity 0 Intake and Output: Intake & Output 09/17/22 09/18/22 09/19/22 09/20/22 11:59 11:59 11:59 11:59 Intake Total 870 2447 Output Total 1200 1200 Balance -330 1247 Weight 52 kg Lab Results: Lab Results-Last 24 Hours 09/19/22 09/19/22 09/19/22 Range/Units 11:47 15:38 20:57 WBC (4.0-10.5) x10^3/uL RBC (4.1-5.6) x10^6/uL Hgb (12.5-18.0) g/dL Hct (42-50) % MCV (78-100) fL MCH (26-32) pg MCHC (32-36) g/dL RDW (11.5-14.0) % Plt Count (150-450) x10^3/uL MPV (7.5-11.0) fL Sodium (137-145) mmol/L Potassium (3.5-5.1) mmol/L Chloride (98-107) mmol/L Carbon Dioxide (22-30) mmol/L Anion Gap (5-15) MEQ/L BUN (9-20) mg/dL Creatinine (0.66-1.25) mg/dL Estimated GFR ML/MIN Glucose (74-106) mg/dL POC Glucometer 129 H 159 H 200 H (74 to 106) mg/dL Calcium (8.4-10.2) mg/dL 09/20/22 09/20/22 09/20/22 Range/Units 04:18 04:18 06:23 WBC 5.9 (4.0-10.5) x10^3/uL RBC 2.05 L (4.1-5.6) x10^6/uL Hgb 6.1 L* D (12.5-18.0) g/dL Hct 18.6 L (42-50) % MCV 90.7 (78-100) fL MCH 29.8 (26-32) pg MCHC 32.8 (32-36) g/dL RDW 17.1 H (11.5-14.0) % Plt Count 173 (150-450) x10^3/uL MPV 10.7 (7.5-11.0) fL Sodium 135 L (137-145) mmol/L Potassium 4.0 (3.5-5.1) mmol/L Chloride 106 (98-107) mmol/L Carbon Dioxide 20 L (22-30) mmol/L Anion Gap 13.0 (5-15) MEQ/L BUN 34 H (9-20) mg/dL Creatinine 1.84 H (0.66-1.25) mg/dL Estimated GFR 38.1 ML/MIN Glucose 106 (74-106) mg/dL POC Glucometer 109 H (74 to 106) mg/dL Calcium 7.9 L (8.4-10.2) mg/dL Assessment/Plan (1) GI bleed Current Visit: Yes Status: Acute Qualifiers: GI bleed type/associated pathology: unspecified gastrointestinal hemorrhage type Qualified Code(s): K92.2 - Gastrointestinal hemorrhage, unspecified Assessment & Plan: Continues to lose blood. EGD/colonoscopy this morning. Code(s): K92.2 - GASTROINTESTINAL HEMORRHAGE, UNSPECIFIED (2) Acute renal failure (ARF) Current Visit: Yes Status: Acute Qualifiers: Acute renal failure type: unspecified Qualified Code(s): N17.9 - Acute kidney failure, unspecified (3) Blood transfusion during current hospitalisation Current Visit: Yes Status: Acute Code(s): [id number] - (4) COVID-19 virus infection Current Visit: Yes Status: Acute Code(s): U07.1 - COVID-19 (5) Hyperglycemia Current Visit: Yes Status: Chronic Code(s): R73.9 - HYPERGLYCEMIA, UNSPECIFIED (6) Symptomatic anemia Current Visit: Yes Status: Acute Code(s): D64.9 - ANEMIA, UNSPECIFIED (7) HTN (hypertension) Current Visit: No Status: Chronic Qualifiers: Hypertension type: primary hypertension Qualified Code(s): I10 - Essential (primary) hypertension Code(s): I10 - ESSENTIAL (PRIMARY) HYPERTENSION (8) Sarcoidosis Current Visit: No Status: Chronic Code(s): D86.9 - SARCOIDOSIS, UNSPECIFIED (9) Hx of malignant neoplasm of pancreas Current Visit: No Status: Chronic Code(s): Z85.07 - PERSONAL HISTORY OF MALIGNANT NEOPLASM OF PANCREAS (10) Diabetes mellitus type II, uncontrolled Current Visit: Yes Status: Chronic Qualifiers: Glycemic state: with hyperglycemia Qualified Code(s): E11.65 - Type 2 diabetes mellitus with hyperglycemia Code(s): [id number] -
[2022-09-20] MEDS: NORVASC 5 MG PO SCH ×2 (10:12→22:43)
[2022-09-20] MEDS ORDERED: Versed 2 MG/2 ML Injection ONE (11:17)
[2022-09-20] MEDS ORDERED: DIPRIVAN 200 MG/20 ML IV ONE (11:17)
[2022-09-20] MEDS ORDERED: Xylocaine-Mpf 2% 5 Ml Vial ONE (11:17)
[2022-09-20] MEDS: SYNTHROID 50 MCG PO SCH (14:59)
[2022-09-20] MEDS: DELTASONE 5 MG PO SCH (14:59)
--- NOTE | 2022-09-20 15:05 | OP ---
SURGERY DATE/TIME: 09/20/2022 1121 PREOPERATIVE DIAGNOSIS: Anemia. POSTOPERATIVE DIAGNOSIS: The patient has some distortion of the stomach. He apparently had pancreas surgery. He had some type of gastrojejunostomy. About all in all there was no bleeding site, no obstruction, no narrowing and basically the stomach looks satisfactory. There is no bezoar. PROCEDURE: EGD. SURGEON: Deion Corral M.D. ANESTHESIA: DESCRIPTION OF PROCEDURE: Scope introduced. Esophagus normal down to gastroesophageal junction. A 2 inch hiatal hernia. On the anterior surface of the stomach, it seemed to have deformity like it had been a previous gastric and pancreatic anastomosis here. Pylorus was cannulated. It was satisfactory. The efferent limb was satisfactory. I do not think there are any issues of food getting in and out of the stomach. There is no bleeding site. There was no narrowed site. No tumor or mass. IMPRESSION: The patient has basically a very functional upper GI situation.
[2022-09-20] MEDS: HUMULIN R SQ PRN ×2 (16:02→22:43)
[2022-09-20 18:40] LABS: Hematocrit 25.8 % (42-50)
[2022-09-20 18:42] LABS: Hemoglobin 8.1 g/dL (12.5-18.0)
[2022-09-21] MEDS: Sodium Chloride 0.9% 1000 ML 1,000 ML IV SCH (03:16)
[2022-09-21 04:44] LABS: Hematocrit 19.8 % (42-50); Mean Cell Volume 89.6 fL (78-100); Mean Corpuscular Hemoglobin 28.5 pg (26-32); Mean Corpuscular Hgb Concent. 31.8 g/dL (32-36); Mean Platelet Volume 10.8 fL (7.5-11.0); Platelet Count 164 x10^3/uL (150-450); Red Blood Count 2.21 x10^6/uL (4.1-5.6); Red Cell Distribution Width 17.7 % (11.5-14.0); White Blood Count 7.6 x10^3/uL (4.0-10.5)
[2022-09-21 05:00] LABS: ANION GAP 11.9 MEQ/L (5-15); Calcium 7.9 mg/dL (8.4-10.2); Creatinine 1 1.8 mg/dL (0.66-1.25); EST GLOMERULAR FILTRATION RATE 39.1 ML/MIN; Potassium 4.7 mmol/L (3.5-5.1)
[2022-09-21 05:08] LABS: Hemoglobin 6.3 g/dL (12.5-18.0)
[2022-09-21] MEDS: PROTONIX 40 MG IV*** 80 MG in Sodium Chloride 0.9% 500 ML 500 ML IV SCH ×2 (05:19→20:53)
--- NOTE | 2022-09-21 05:55 | PCM.NOTE ---
Date and Time: 09/21/22 0553 Subjective Assessment: patient with no pain, had a large bloody stool overnight per nursing, hgb 6.5 this am Objective Exam General Appearance: no apparent distress Neurologic Exam: alert Skin Exam: normal color, warm, dry Respiratory Exam: normal breath sounds, lungs clear, No respiratory distress Cardiovascular Exam: regular rate/rhythm, normal heart sounds Gastrointestinal/Abdomen Exam: soft, No tenderness, No mass OBJECTIVE DATA Vital Signs: Vital Signs - 24 hr Temp Pulse Resp BP Pulse Ox 09/21/22 04:00 97.7 F 83 23 112/67 99 09/21/22 00:00 97.9 F 79 18 111/72 94 L 09/20/22 19:55 97.6 F 71 21 103/64 98 09/20/22 19:08 97 09/20/22 17:00 98.7 F 63 22 105/60 99 09/20/22 16:32 95 09/20/22 12:22 98.7 F 63 20 106/66 95 09/20/22 11:22 98.2 F 65 17 110/65 94 L 09/20/22 10:48 98.2 F 65 17 110/65 94 L 09/20/22 09:25 98.2 F 65 17 110/65 94 L 09/20/22 07:15 98.0 F 61 109/64 09/20/22 07:05 98.9 F 68 16 109/65 99 09/20/22 06:09 98 Pain Assessment - Last Documented Pain Intensity 0 Intake and Output: Intake & Output 09/18/22 09/19/22 09/20/22 09/21/22 11:59 11:59 11:59 11:59 Intake Total 870 2447 2221 Output Total 1200 1200 2200 Balance -330 1247 21 Weight 52 kg 52 kg 52 kg Lab Results: Lab Results-Last 24 Hours 09/18/22 09/20/22 09/20/22 Range/Units 12:25 06:23 10:57 WBC (4.0-10.5) x10^3/uL RBC (4.1-5.6) x10^6/uL Hgb (12.5-18.0) g/dL Hct (42-50) % MCV (78-100) fL MCH (26-32) pg MCHC (32-36) g/dL RDW (11.5-14.0) % Plt Count (150-450) x10^3/uL MPV (7.5-11.0) fL Smear Path Review Sodium (137-145) mmol/L Potassium (3.5-5.1) mmol/L Chloride (98-107) mmol/L Carbon Dioxide (22-30) mmol/L Anion Gap (5-15) MEQ/L BUN (9-20) mg/dL Creatinine (0.66-1.25) mg/dL Estimated GFR ML/MIN Glucose (74-106) mg/dL POC Glucometer 109 H 113 H (74 to 106) mg/dL Hemoglobin A1c (4.5-6.0) % Calcium (8.4-10.2) mg/dL 09/20/22 09/20/22 09/20/22 Range/Units 15:43 16:36 18:35 WBC (4.0-10.5) x10^3/uL RBC (4.1-5.6) x10^6/uL Hgb 8.1 L D (12.5-18.0) g/dL Hct 25.8 L (42-50) % MCV (78-100) fL MCH (26-32) pg MCHC (32-36) g/dL RDW (11.5-14.0) % Plt Count (150-450) x10^3/uL MPV (7.5-11.0) fL Smear Path Review Sodium (137-145) mmol/L Potassium (3.5-5.1) mmol/L Chloride (98-107) mmol/L Carbon Dioxide (22-30) mmol/L Anion Gap (5-15) MEQ/L BUN (9-20) mg/dL Creatinine (0.66-1.25) mg/dL Estimated GFR ML/MIN Glucose (74-106) mg/dL POC Glucometer 161 H (74 to 106) mg/dL Hemoglobin A1c 7.87 H (4.5-6.0) % Calcium (8.4-10.2) mg/dL 09/20/22 09/21/22 09/21/22 Range/Units 21:07 04:14 04:14 WBC 7.6 (4.0-10.5) x10^3/uL RBC 2.21 L (4.1-5.6) x10^6/uL Hgb 6.3 L* D (12.5-18.0) g/dL Hct 19.8 L (42-50) % MCV 89.6 (78-100) fL MCH 28.5 (26-32) pg MCHC 31.8 L (32-36) g/dL RDW 17.7 H (11.5-14.0) % Plt Count 164 (150-450) x10^3/uL MPV 10.8 (7.5-11.0) fL Smear Path Review Sodium 132 L (137-145) mmol/L Potassium 4.7 (3.5-5.1) mmol/L Chloride 107 (98-107) mmol/L Carbon Dioxide 18 L (22-30) mmol/L Anion Gap 11.9 (5-15) MEQ/L BUN 29 H (9-20) mg/dL Creatinine 1.80 H (0.66-1.25) mg/dL Estimated GFR 39.1 ML/MIN Glucose 381 H (74-106) mg/dL POC Glucometer 288 H (74 to 106) mg/dL Hemoglobin A1c (4.5-6.0) % Calcium 7.9 L (8.4-10.2) mg/dL Multi-Disciplinary Progress Notes: Multi-Disciplinary Progress Notes 09/20/22 10:30 (created 09/20/22 11:18) Case Management Note by Lissette Mcgraw S/W PATIENT- HE CONTINUES TO DENY ANY NEW NEEDS AT TIME OF DC. HE PLANS TO RETURN HOME TO HIS PLF. HE CONTINUES TO DENY ANY NEW EQUIPMENT NEEDS OR SERVICES. HE REPORTS HE HAS NEIGHBORS THAT CAN ASSIST IF NEEDED Initialized on 09/20/22 11:18 - END OF NOTE Assessment/Plan (1) GI bleed Current Visit: Yes Status: Acute Qualifiers: GI bleed type/associated pathology: unspecified gastrointestinal hemorrhage type Qualified Code(s): K92.2 - Gastrointestinal hemorrhage, unspecified Assessment & Plan: transfusing 3 units packed red cells based on hgb 6.5 and continuing to bleed, apparently no source found on EGD, continue protonix drip Code(s): K92.2 - GASTROINTESTINAL HEMORRHAGE, UNSPECIFIED (2) COVID-19 virus infection Current Visit: Yes Status: Acute Code(s): U07.1 - COVID-19 (3) Symptomatic anemia Current Visit: Yes Status: Acute Code(s): D64.9 - ANEMIA, UNSPECIFIED (4) Diabetes mellitus type II, uncontrolled Current Visit: Yes Status: Chronic Qualifiers: Glycemic state: with hyperglycemia Qualified Code(s): E11.65 - Type 2 diabetes mellitus with hyperglycemia Code(s): [id number] -
[2022-09-21 07:27] LABS: ABO TYPING O
[2022-09-21 07:28] LABS: Antibody Screen NEGATIVE (NEGATIVE); CROSS MATCH (PRBC) COMPATIBLE (COMPATIBLE); RH TYPING POSITIVE
[2022-09-21] MEDS: HUMULIN R SQ PRN ×4 (08:00→21:43)
[2022-09-21] MEDS: ZENPEP DR 5,000 UNIT CAPSULE PO SCH ×4 (08:00→21:00)
[2022-09-21] MEDS: NORVASC 5 MG PO SCH ×2 (09:33→21:00)
[2022-09-21] MEDS: PROTONIX 40 MG IV IV SCH ×2 (11:58→21:00)
[2022-09-21] MEDS: DELTASONE 5 MG PO SCH (11:58)
[2022-09-21] MEDS: SYNTHROID 50 MCG PO SCH (11:58)
[2022-09-21 21:55] LABS: Hematocrit 31.6 % (42-50); Hemoglobin 10.3 g/dL (12.5-18.0)
[2022-09-22 05:40] LABS: Hematocrit 27.2 % (42-50); Hemoglobin 9.1 g/dL (12.5-18.0); Mean Cell Volume 87.7 fL (78-100); Mean Corpuscular Hemoglobin 29.4 pg (26-32); Mean Corpuscular Hgb Concent. 33.5 g/dL (32-36); Mean Platelet Volume 10.6 fL (7.5-11.0); Platelet Count 135 x10^3/uL (150-450); Red Cell Distribution Width 15.9 % (11.5-14.0); White Blood Count 7.6 x10^3/uL (4.0-10.5)
[2022-09-22 05:51] LABS: ANION GAP 8.8 MEQ/L (5-15); Creatinine 1 1.48 mg/dL (0.66-1.25)
[2022-09-22] MEDS: PROTONIX 40 MG IV*** 80 MG in Sodium Chloride 0.9% 500 ML 500 ML IV SCH ×2 (07:48→17:59)
[2022-09-22] MEDS: ZENPEP DR 5,000 UNIT CAPSULE PO SCH ×4 (08:16→21:53)
--- NOTE | 2022-09-22 08:58 | PCM.NOTE ---
Date and Time: 09/22/22 0857 Subjective Assessment: no more bloody stools overnight but hasn't had a bowel movement. overall he is feeling better after the transfusion. Objective Exam General Appearance: no apparent distress Neurologic Exam: alert, oriented x 3 Skin Exam: normal color, warm, dry Respiratory Exam: normal breath sounds, lungs clear, No respiratory distress Cardiovascular Exam: regular rate/rhythm, normal heart sounds Gastrointestinal/Abdomen Exam: soft, No tenderness, No mass Extremity Exam: normal inspection, normal range of motion OBJECTIVE DATA Vital Signs: Vital Signs - 24 hr Temp Pulse Resp BP Pulse Ox 09/22/22 07:55 98 09/22/22 07:31 97.7 F 69 17 121/79 97 09/22/22 04:00 98.0 F 77 16 117/72 98 09/21/22 23:18 98.0 F 83 18 127/80 98 09/21/22 20:15 36.4 F 82 18 132/85 09/21/22 20:00 98.2 F 72 18 138/73 97 09/21/22 18:36 99 09/21/22 15:53 98.4 F 84 22 137/79 97 09/21/22 11:02 97.8 F 91 H 21 107/69 98 Pain Assessment - Last Documented Pain Intensity 0 Intake and Output: Intake & Output 09/19/22 09/20/22 09/21/22 09/22/22 11:59 11:59 11:59 11:59 Intake Total 870 2447 2701 3600 Output Total 1200 1200 2200 1700 Balance -330 8557 848 8967 Weight 52 kg 52 kg 52 kg Lab Results: Lab Results-Last 24 Hours 09/21/22 09/21/22 09/21/22 Range/Units 10:55 15:40 20:50 WBC (4.0-10.5) x10^3/uL RBC (4.1-5.6) x10^6/uL Hgb (12.5-18.0) g/dL Hct (42-50) % MCV (78-100) fL MCH (26-32) pg MCHC (32-36) g/dL RDW (11.5-14.0) % Plt Count (150-450) x10^3/uL MPV (7.5-11.0) fL Sodium (137-145) mmol/L Potassium (3.5-5.1) mmol/L Chloride (98-107) mmol/L Carbon Dioxide (22-30) mmol/L Anion Gap (5-15) MEQ/L BUN (9-20) mg/dL Creatinine (0.66-1.25) mg/dL Estimated GFR ML/MIN Glucose (74-106) mg/dL POC Glucometer 411 H 251 H 251 H (74 to 106) mg/dL Calcium (8.4-10.2) mg/dL 09/21/22 09/22/22 09/22/22 Range/Units 21:50 05:21 05:21 WBC 7.6 (4.0-10.5) x10^3/uL RBC 3.10 L (4.1-5.6) x10^6/uL Hgb 10.3 L D 9.1 L (12.5-18.0) g/dL Hct 31.6 L 27.2 L (42-50) % MCV 87.7 (78-100) fL MCH 29.4 (26-32) pg MCHC 33.5 (32-36) g/dL RDW 15.9 H (11.5-14.0) % Plt Count 135 L (150-450) x10^3/uL MPV 10.6 (7.5-11.0) fL Sodium 137 (137-145) mmol/L Potassium 4.0 (3.5-5.1) mmol/L Chloride 112 H (98-107) mmol/L Carbon Dioxide 21 L (22-30) mmol/L Anion Gap 8.8 (5-15) MEQ/L BUN 26 H (9-20) mg/dL Creatinine 1.48 H (0.66-1.25) mg/dL Estimated GFR 49.0 ML/MIN Glucose 109 H (74-106) mg/dL POC Glucometer (74 to 106) mg/dL Calcium 8.0 L (8.4-10.2) mg/dL 09/22/22 Range/Units 06:53 WBC (4.0-10.5) x10^3/uL RBC (4.1-5.6) x10^6/uL Hgb (12.5-18.0) g/dL Hct (42-50) % MCV (78-100) fL MCH (26-32) pg MCHC (32-36) g/dL RDW (11.5-14.0) % Plt Count (150-450) x10^3/uL MPV (7.5-11.0) fL Sodium (137-145) mmol/L Potassium (3.5-5.1) mmol/L Chloride (98-107) mmol/L Carbon Dioxide (22-30) mmol/L Anion Gap (5-15) MEQ/L BUN (9-20) mg/dL Creatinine (0.66-1.25) mg/dL Estimated GFR ML/MIN Glucose (74-106) mg/dL POC Glucometer 136 H (74 to 106) mg/dL Calcium (8.4-10.2) mg/dL Multi-Disciplinary Progress Notes: Multi-Disciplinary Progress Notes 09/21/22 11:13 Case Management Note by Lissette Mcgraw S/W PATIENT- HE CONTINUES TO DENY ANY NEW NEEDS AT TIME OF DC. HE FEELS HE WILL BE ABLE TO CARE FOR HIMSELF AT HOME. I AGAIN ENCOURAGED C- PATIENT AGAIN DECLINES. HE PLANS TO RETURN HOME TO HIS PLF AT TIME OF DC Initialized on 09/21/22 11:13 - END OF NOTE Assessment/Plan (1) GI bleed Current Visit: Yes Status: Acute Qualifiers: GI bleed type/associated pathology: unspecified gastrointestinal hemorrhage type Qualified Code(s): K92.2 - Gastrointestinal hemorrhage, unspecified Assessment & Plan: h/h stable, egd showed no active bleeding. will continue to follow Code(s): K92.2 - GASTROINTESTINAL HEMORRHAGE, UNSPECIFIED (2) COVID-19 virus infection Current Visit: Yes Status: Acute Code(s): U07.1 - COVID-19 (3) Symptomatic anemia Current Visit: Yes Status: Acute Code(s): D64.9 - ANEMIA, UNSPECIFIED (4) Diabetes mellitus type II, uncontrolled Current Visit: Yes Status: Chronic Qualifiers: Glycemic state: with hyperglycemia Qualified Code(s): E11.65 - Type 2 diabetes mellitus with hyperglycemia Code(s): [id number] -
[2022-09-22] MEDS: DELTASONE 5 MG PO SCH (10:40)
[2022-09-22] MEDS: NORVASC 5 MG PO SCH ×2 (10:40→21:52)
[2022-09-22] MEDS: SYNTHROID 50 MCG PO SCH (10:40)
[2022-09-22] MEDS: HUMULIN R SQ PRN ×3 (13:02→21:53)
[2022-09-23] MEDS: PROTONIX 40 MG IV*** 80 MG in Sodium Chloride 0.9% 500 ML 500 ML IV SCH (03:35)
[2022-09-23 05:51] LABS: Hematocrit 24.1 % (42-50); Hemoglobin 7.8 g/dL (12.5-18.0); Mean Cell Volume 90.3 fL (78-100); Mean Corpuscular Hemoglobin 29.2 pg (26-32); Mean Corpuscular Hgb Concent. 32.4 g/dL (32-36); Mean Platelet Volume 10.8 fL (7.5-11.0); Platelet Count 163 x10^3/uL (150-450); Red Blood Count 2.67 x10^6/uL (4.1-5.6); Red Cell Distribution Width 16.4 % (11.5-14.0); White Blood Count 8.9 x10^3/uL (4.0-10.5)
[2022-09-23 06:03] LABS: ANION GAP 7.9 MEQ/L (5-15); Calcium 8.1 mg/dL (8.4-10.2); Creatinine 1 1.53 mg/dL (0.66-1.25); EST GLOMERULAR FILTRATION RATE 47.1 ML/MIN; Potassium 4.2 mmol/L (3.5-5.1)
--- NOTE | 2022-09-23 07:17 | PCM.NOTE ---
Date and Time: 09/23/22714 Subjective Assessment: patient states he had another black tarry stool overnight, no pain, otherwise feels well. Objective Exam General Appearance: no apparent distress Neurologic Exam: alert, oriented x 3 Respiratory Exam: normal breath sounds, lungs clear, No respiratory distress Cardiovascular Exam: regular rate/rhythm, normal heart sounds Gastrointestinal/Abdomen Exam: soft, No tenderness, No mass OBJECTIVE DATA Vital Signs: Vital Signs - 24 hr Temp Pulse Resp BP Pulse Ox 09/23/22 03:54 97.8 F 83 18 117/70 97 09/22/22 23:20 98.0 F 85 18 90/58 98 09/22/22 20:14 96 09/22/22 20:00 98.2 F 88 19 123/86 97 09/22/22 16:00 98.1 F 82 18 138/72 94 L 09/22/22 11:10 98.4 F 76 17 126/78 97 09/22/22 07:55 98 09/22/22 07:31 97.7 F 69 17 121/79 97 Pain Assessment - Last Documented Pain Intensity 0 Intake and Output: Intake & Output 09/20/22 09/21/22 09/22/22 09/23/22 11:59 11:59 11:59 11:59 Intake Total 2447 2701 3720 2368 Output Total 1200 2200 1700 975 Balance 3668 096 1884 1393 Weight 52 kg 52 kg 57.2 kg Lab Results: Lab Results-Last 24 Hours 09/22/22 09/22/22 09/22/22 Range/Units 10:58 16:42 21:30 WBC (4.0-10.5) x10^3/uL RBC (4.1-5.6) x10^6/uL Hgb (12.5-18.0) g/dL Hct (42-50) % MCV (78-100) fL MCH (26-32) pg MCHC (32-36) g/dL RDW (11.5-14.0) % Plt Count (150-450) x10^3/uL MPV (7.5-11.0) fL Sodium (137-145) mmol/L Potassium (3.5-5.1) mmol/L Chloride (98-107) mmol/L Carbon Dioxide (22-30) mmol/L Anion Gap (5-15) MEQ/L BUN (9-20) mg/dL Creatinine (0.66-1.25) mg/dL Estimated GFR ML/MIN Glucose (74-106) mg/dL POC Glucometer 329 H 334 H 366 H (74 to 106) mg/dL Calcium (8.4-10.2) mg/dL 09/23/22 09/23/22 Range/Units 05:28 05:28 WBC 8.9 (4.0-10.5) x10^3/uL RBC 2.67 L (4.1-5.6) x10^6/uL Hgb 7.8 L (12.5-18.0) g/dL Hct 24.1 L (42-50) % MCV 90.3 (78-100) fL MCH 29.2 (26-32) pg MCHC 32.4 (32-36) g/dL RDW 16.4 H (11.5-14.0) % Plt Count 163 (150-450) x10^3/uL MPV 10.8 (7.5-11.0) fL Sodium 137 (137-145) mmol/L Potassium 4.2 (3.5-5.1) mmol/L Chloride 111 H (98-107) mmol/L Carbon Dioxide 22 (22-30) mmol/L Anion Gap 7.9 (5-15) MEQ/L BUN 24 H (9-20) mg/dL Creatinine 1.53 H (0.66-1.25) mg/dL Estimated GFR 47.1 ML/MIN Glucose 157 H (74-106) mg/dL POC Glucometer (74 to 106) mg/dL Calcium 8.1 L (8.4-10.2) mg/dL Assessment/Plan (1) GI bleed Current Visit: Yes Status: Acute Qualifiers: GI bleed type/associated pathology: unspecified gastrointestinal hemorrhage type Qualified Code(s): K92.2 - Gastrointestinal hemorrhage, unspecified Assessment & Plan: EGD showed no source of bleeding, has been on IV protonix drip and continues to lose blood. will consult with surgery again, ?if colonoscopy warranted, if persists may need transferred for consideration of capsule endoscopy or other workup Code(s): K92.2 - GASTROINTESTINAL HEMORRHAGE, UNSPECIFIED (2) COVID-19 virus infection Current Visit: Yes Status: Acute Code(s): U07.1 - COVID-19 (3) Symptomatic anemia Current Visit: Yes Status: Acute Code(s): D64.9 - ANEMIA, UNSPECIFIED (4) Diabetes mellitus type II, uncontrolled Current Visit: Yes Status: Chronic Qualifiers: Glycemic state: with hyperglycemia Qualified Code(s): E11.65 - Type 2 diabetes mellitus with hyperglycemia Code(s): [id number] -
[2022-09-23] MEDS: NORVASC 5 MG PO SCH ×2 (10:21→21:17)
[2022-09-23] MEDS: SYNTHROID 50 MCG PO SCH (10:21)
[2022-09-23] MEDS: ZENPEP DR 5,000 UNIT CAPSULE PO SCH ×4 (10:21→21:17)
[2022-09-23] MEDS: DELTASONE 5 MG PO SCH (10:22)
[2022-09-23] MEDS: PROTONIX 40 MG IV IV SCH (10:22)
[2022-09-23] MEDS: HUMULIN R SQ PRN (12:14)
[2022-09-23] MEDS ORDERED: Golytely Solution 4000 ML PO ONE (14:00)
[2022-09-23 16:44] LABS: Absolute Neutrophil Ct (ANC) 8.83 x10^3/uL (1.4-6.9); BASOPHIL % 0.6 % (0.0-0.4); Basophil (Absolute #) 0.06 x10^3/uL (0-0.4); Eosinophil % 1.6 % (0.00-5.0); Eosinophil (Absolute #) 0.17 x10^3/uL (0-0.5); Hematocrit 25.5 % (42-50); Hemoglobin 8.1 g/dL (12.5-18.0); IMMATURE GRAN # 0.06 x10^3u/L (0.00-0.03); IMMATURE GRAN % 0.6 % (0.00-0.4); Lymphocyte (Absolute #) 0.68 x10^3/uL (1.0-4.6); Lymphocytes % 6.4 % (24.0-44.0); Mean Cell Volume 91.1 fL (78-100); Mean Corpuscular Hemoglobin 28.9 pg (26-32); Mean Corpuscular Hgb Concent. 31.8 g/dL (32-36); Mean Platelet Volume 10.6 fL (7.5-11.0); Monocyte (Absolute #) 0.79 x10^3/uL (0.0-1.3); Monocytes % 7.5 % (0.0-12.0); Neutrophil % 83.3 % (36.0-66.0); Platelet Count 165 x10^3/uL (150-450); Red Cell Distribution Width 16.6 % (11.5-14.0); White Blood Count 10.6 x10^3/uL (4.0-10.5)
[2022-09-24 04:59] LABS: Hematocrit 21.5 % (42-50); Mean Cell Volume 89.6 fL (78-100); Mean Corpuscular Hemoglobin 29.2 pg (26-32); Mean Corpuscular Hgb Concent. 32.6 g/dL (32-36); Mean Platelet Volume 10.5 fL (7.5-11.0); Platelet Count 162 x10^3/uL (150-450); Red Cell Distribution Width 16.4 % (11.5-14.0); White Blood Count 7.3 x10^3/uL (4.0-10.5)
[2022-09-24 05:12] LABS: ANION GAP 8.9 MEQ/L (5-15); Creatinine 1 1.36 mg/dL (0.66-1.25); Potassium 4.4 mmol/L (3.5-5.1)
--- NOTE | 2022-09-24 08:51 | PCM.NOTE ---
Date and Time: 09/24/22 0845 Subjective Assessment: Pt started colon prep last night and has had maroon-colored stools. Denies any pain. Hgb is 7.0 this morning. - Review of Systems Constitutional: No Fever Abdominal/Gastrointestinal: Melena Objective Exam General Appearance: no apparent distress, thin Neurologic Exam: oriented x 3, cooperative Skin Exam: warm, dry, pale, No rash Eye Exam: eyes nml inspection Ears, Nose, Throat Exam: moist mucous membranes Neck Exam: normal inspection Respiratory Exam: normal breath sounds Cardiovascular Exam: regular rate/rhythm, normal heart sounds, No murmur Gastrointestinal/Abdomen Exam: soft, normal bowel sounds, No tenderness, No distention, No mass, No guarding, No rebound Extremity Exam: normal inspection, No pedal edema, No swelling OBJECTIVE DATA Vital Signs: Vital Signs - 24 hr Temp Pulse Resp BP Pulse Ox 09/24/22 08:41 97.8 F 64 16 114/71 96 09/24/22 07:37 97.8 F 64 16 114/71 96 09/24/22 07:29 97 09/24/22 04:30 97.8 F 73 18 108/71 98 09/23/22 23:16 97.8 F 69 18 138/81 97 09/23/22 19:26 97.9 F 78 19 123/74 98 09/23/22 19:05 98 09/23/22 16:00 97.7 F 80 16 115/62 97 09/23/22 12:00 97.7 F 76 16 112/70 98 Pain Assessment - Last Documented Pain Intensity 0 Intake and Output: Intake & Output 09/21/22 09/22/22 09/23/22 09/24/22 11:59 11:59 11:59 11:59 Intake Total 2701 3720 2728 4760 Output Total 2200 8939 825 9745 Balance 501 2020 1753 -1740 Weight 52 kg 57.2 kg 58.1 kg 58.3 kg Lab Results: Lab Results-Last 24 Hours 09/23/22 09/23/22 09/23/22 Range/Units 11:20 16:19 16:38 WBC 10.6 H (4.0-10.5) x10^3/uL RBC 2.80 L (4.1-5.6) x10^6/uL Hgb 8.1 L (12.5-18.0) g/dL Hct 25.5 L (42-50) % MCV 91.1 (78-100) fL MCH 28.9 (26-32) pg MCHC 31.8 L (32-36) g/dL RDW 16.6 H (11.5-14.0) % Plt Count 165 (150-450) x10^3/uL MPV 10.6 (7.5-11.0) fL Gran % 83.3 H (36.0-66.0) % Immature Gran % (Auto) 0.6 H (0.00-0.4) % Nucleat RBC Rel Count 0.0 (0.00-0.1) % Eos # (Auto) 0.17 (0-0.5) x10^3/uL Immature Gran # (Auto) 0.06 H (0.00-0.03) x10^3u/L Absolute Lymphs (auto) 0.68 L (1.0-4.6) x10^3/uL Absolute Monos (auto) 0.79 (0.0-1.3) x10^3/uL Absolute Nucleated RBC 0.00 (0.00-0.01) x10^3u/L Lymphocytes % 6.4 L (24.0-44.0) % Monocytes % 7.5 (0.0-12.0) % Eosinophils % 1.6 (0.00-5.0) % Basophils % 0.6 (0.0-0.4) % Absolute Granulocytes 8.83 H (1.4-6.9) x10^3/uL Basophils # 0.06 (0-0.4) x10^3/uL Sodium (137-145) mmol/L Potassium (3.5-5.1) mmol/L Chloride (98-107) mmol/L Carbon Dioxide (22-30) mmol/L Anion Gap (5-15) MEQ/L BUN (9-20) mg/dL Creatinine (0.66-1.25) mg/dL Estimated GFR ML/MIN Glucose (74-106) mg/dL POC Glucometer 229 H 188 H (74 to 106) mg/dL Calcium (8.4-10.2) mg/dL 09/23/22 09/24/22 09/24/22 Range/Units 21:05 04:50 04:50 WBC 7.3 (4.0-10.5) x10^3/uL RBC 2.40 L (4.1-5.6) x10^6/uL Hgb 7.0 L* (12.5-18.0) g/dL Hct 21.5 L (42-50) % MCV 89.6 (78-100) fL MCH 29.2 (26-32) pg MCHC 32.6 (32-36) g/dL RDW 16.4 H (11.5-14.0) % Plt Count 162 (150-450) x10^3/uL MPV 10.5 (7.5-11.0) fL Gran % (36.0-66.0) % Immature Gran % (Auto) (0.00-0.4) % Nucleat RBC Rel Count (0.00-0.1) % Eos # (Auto) (0-0.5) x10^3/uL Immature Gran # (Auto) (0.00-0.03) x10^3u/L Absolute Lymphs (auto) (1.0-4.6) x10^3/uL Absolute Monos (auto) (0.0-1.3) x10^3/uL Absolute Nucleated RBC (0.00-0.01) x10^3u/L Lymphocytes % (24.0-44.0) % Monocytes % (0.0-12.0) % Eosinophils % (0.00-5.0) % Basophils % (0.0-0.4) % Absolute Granulocytes (1.4-6.9) x10^3/uL Basophils # (0-0.4) x10^3/uL Sodium 137 (137-145) mmol/L Potassium 4.4 (3.5-5.1) mmol/L Chloride 109 H (98-107) mmol/L Carbon Dioxide 23 (22-30) mmol/L Anion Gap 8.9 (5-15) MEQ/L BUN 19 (9-20) mg/dL Creatinine 1.36 H (0.66-1.25) mg/dL Estimated GFR 54.0 ML/MIN Glucose 163 H (74-106) mg/dL POC Glucometer 187 H (74 to 106) mg/dL Calcium 8.0 L (8.4-10.2) mg/dL 09/24/22 Range/Units 07:28 WBC (4.0-10.5) x10^3/uL RBC (4.1-5.6) x10^6/uL Hgb (12.5-18.0) g/dL Hct (42-50) % MCV (78-100) fL MCH (26-32) pg MCHC (32-36) g/dL RDW (11.5-14.0) % Plt Count (150-450) x10^3/uL MPV (7.5-11.0) fL Gran % (36.0-66.0) % Immature Gran % (Auto) (0.00-0.4) % Nucleat RBC Rel Count (0.00-0.1) % Eos # (Auto) (0-0.5) x10^3/uL Immature Gran # (Auto) (0.00-0.03) x10^3u/L Absolute Lymphs (auto) (1.0-4.6) x10^3/uL Absolute Monos (auto) (0.0-1.3) x10^3/uL Absolute Nucleated RBC (0.00-0.01) x10^3u/L Lymphocytes % (24.0-44.0) % Monocytes % (0.0-12.0) % Eosinophils % (0.00-5.0) % Basophils % (0.0-0.4) % Absolute Granulocytes (1.4-6.9) x10^3/uL Basophils # (0-0.4) x10^3/uL Sodium (137-145) mmol/L Potassium (3.5-5.1) mmol/L Chloride (98-107) mmol/L Carbon Dioxide (22-30) mmol/L Anion Gap (5-15) MEQ/L BUN (9-20) mg/dL Creatinine (0.66-1.25) mg/dL Estimated GFR ML/MIN Glucose (74-106) mg/dL POC Glucometer 138 H (74 to 106) mg/dL Calcium (8.4-10.2) mg/dL Assessment/Plan (1) GI bleed Current Visit: Yes Status: Acute Qualifiers: GI bleed type/associated pathology: unspecified gastrointestinal hemorrhage type Qualified Code(s): K92.2 - Gastrointestinal hemorrhage, unspecified Assessment & Plan: Pt started colon prep, to have colonoscopy today, thank you. Hgb 7.0, down from 8.1 yesterday, so will go ahead with 1 unit PRBC as he is losing blood with the prep as well. Code(s): K92.2 - GASTROINTESTINAL HEMORRHAGE, UNSPECIFIED (2) Blood transfusion during current hospitalisation Current Visit: Yes Status: Acute Code(s): [id number] - (3) COVID-19 virus infection Current Visit: Yes Status: Acute Code(s): U07.1 - COVID-19 (4) Hyperglycemia Current Visit: Yes Status: Chronic Code(s): R73.9 - HYPERGLYCEMIA, UNSPECIFIED (5) HTN (hypertension) Current Visit: No Status: Chronic Qualifiers: Hypertension type: primary hypertension Qualified Code(s): I10 - Essential (primary) hypertension Code(s): I10 - ESSENTIAL (PRIMARY) HYPERTENSION (6) Sarcoidosis Current Visit: No Status: Chronic Code(s): D86.9 - SARCOIDOSIS, UNSPECIFIED (7) Hx of malignant neoplasm of pancreas Current Visit: No Status: Chronic Code(s): Z85.07 - PERSONAL HISTORY OF MALIGNANT NEOPLASM OF PANCREAS (8) Diabetes mellitus type II, uncontrolled Current Visit: Yes Status: Chronic Qualifiers: Glycemic state: with hyperglycemia Qualified Code(s): E11.65 - Type 2 diabetes mellitus with hyperglycemia Code(s): [id number] - (9) Chronic renal disease Current Visit: Yes Status: Chronic Code(s): N18.9 - CHRONIC KIDNEY DISEASE, UNSPECIFIED
[2022-09-24] MEDS: NORVASC 5 MG PO SCH ×2 (09:35→21:11)
[2022-09-24] MEDS: DELTASONE 5 MG PO SCH (09:35)
[2022-09-24] MEDS: SYNTHROID 50 MCG PO SCH (09:35)
[2022-09-24] MEDS: PROTONIX 40 MG IV IV SCH (09:36)
[2022-09-24] MEDS: ZENPEP DR 5,000 UNIT CAPSULE PO SCH ×4 (09:36→21:11)
[2022-09-24] MEDS ORDERED: Sodium Chloride 0.9% 500 ML 500 ML IV SCH (10:00)
[2022-09-24 10:32] LABS: ABO TYPING O; Antibody Screen NEGATIVE (NEGATIVE); RH TYPING POSITIVE
[2022-09-24 10:33] LABS: CROSS MATCH (PRBC) COMPATIBLE (COMPATIBLE)
[2022-09-24] MEDS ORDERED: Lactated Ringers 1,000 ML IV ONE (14:52)
[2022-09-24] MEDS ORDERED: DIPRIVAN 200 MG/20 ML IV ONE (16:13)
[2022-09-24] MEDS ORDERED: DUONEB 0.5-3 MG/3 ml Neb IH ONE ×2 (16:17→16:20)
--- NOTE | 2022-09-24 16:38 | XRAY ---
Indication: Postop exam. Aspiration. Comparison: January 01, 2022 Portable chest is now underinflated again demonstrating COPD and mild bibasilar subsegmental atelectasis/scarring. No focal infiltrate, consolidation, or large effusion. Heart not enlarged again with right Port-A-Cath. Bony thorax intact again with osteopenia and degenerative changes. Impression: Nonacute underinflated chest with chronic features.
[2022-09-25 05:37] LABS: Absolute Neutrophil Ct (ANC) 9.12 x10^3/uL (1.4-6.9); BASOPHIL % 0.5 % (0.0-0.4); Basophil (Absolute #) 0.06 x10^3/uL (0-0.4); Eosinophil % 1.5 % (0.00-5.0); Eosinophil (Absolute #) 0.16 x10^3/uL (0-0.5); Hematocrit 28.5 % (42-50); Hemoglobin 9.2 g/dL (12.5-18.0); IMMATURE GRAN # 0.05 x10^3u/L (0.00-0.03); IMMATURE GRAN % 0.5 % (0.00-0.4); Lymphocyte (Absolute #) 0.93 x10^3/uL (1.0-4.6); Lymphocytes % 8.5 % (24.0-44.0); Mean Cell Volume 88.5 fL (78-100); Mean Corpuscular Hemoglobin 28.6 pg (26-32); Mean Corpuscular Hgb Concent. 32.3 g/dL (32-36); Mean Platelet Volume 10.8 fL (7.5-11.0); Monocyte (Absolute #) 0.65 x10^3/uL (0.0-1.3); Monocytes % 5.9 % (0.0-12.0); Neutrophil % 83.1 % (36.0-66.0); Platelet Count 183 x10^3/uL (150-450); Red Blood Count 3.22 x10^6/uL (4.1-5.6); Red Cell Distribution Width 15.4 % (11.5-14.0)
[2022-09-25 07:42] LABS: ALBUMIN 2.1 g/dL (3.5-5.0); ANION GAP 10.5 MEQ/L (5-15); BILIRUBIN,TOTAL 0.7 mg/dL (0.2-1.3); Calcium 8.1 mg/dL (8.4-10.2); Creatinine 1 1.28 mg/dL (0.66-1.25); EST GLOMERULAR FILTRATION RATE 57.9 ML/MIN; Potassium 4.2 mmol/L (3.5-5.1); Total Protein 4.6 g/dL (6.3-8.2)
[2022-09-25] MEDS ORDERED: Lactated Ringers 1,000 ML IV ONE (08:54)
--- NOTE | 2022-09-25 09:00 | PCM.NOTE ---
Date and Time: 09/25/22 0855 OBJECTIVE DATA Vital Signs: Vital Signs - 24 hr Temp Pulse Resp BP Pulse Ox 09/25/22 08:00 98.2 F 78 17 124/69 98 09/25/22 07:28 94 L 09/25/22 04:00 98.6 F 78 18 117/76 96 09/25/22 00:00 98.2 F 79 18 133/81 98 09/24/22 19:51 97.4 F 70 16 110/70 96 09/24/22 19:28 95 09/24/22 16:20 66 16 97 09/24/22 16:00 96.9 F 65 16 132/73 98 09/24/22 12:00 97.0 F 65 16 109/68 96 Pain Assessment - Last Documented Pain Intensity 0 Intake and Output: Intake & Output 09/22/22 09/23/22 09/24/22 09/25/22 11:59 11:59 11:59 11:59 Intake Total 3720 2728 4760 500 Output Total 4991 918 3832 1850 Balance 2019 1753 -1740 -1350 Weight 57.2 kg 58.1 kg 58.3 kg Lab Results: Lab Results-Last 24 Hours 09/24/22 09/24/22 09/24/22 Range/Units 09:07 09:07 12:15 WBC (4.0-10.5) x10^3/uL RBC (4.1-5.6) x10^6/uL Hgb (12.5-18.0) g/dL Hct (42-50) % MCV (78-100) fL MCH (26-32) pg MCHC (32-36) g/dL RDW (11.5-14.0) % Plt Count (150-450) x10^3/uL MPV (7.5-11.0) fL Gran % (36.0-66.0) % Immature Gran % (Auto) (0.00-0.4) % Nucleat RBC Rel Count (0.00-0.1) % Eos # (Auto) (0-0.5) x10^3/uL Immature Gran # (Auto) (0.00-0.03) x10^3u/L Absolute Lymphs (auto) (1.0-4.6) x10^3/uL Absolute Monos (auto) (0.0-1.3) x10^3/uL Absolute Nucleated RBC (0.00-0.01) x10^3u/L Lymphocytes % (24.0-44.0) % Monocytes % (0.0-12.0) % Eosinophils % (0.00-5.0) % Basophils % (0.0-0.4) % Absolute Granulocytes (1.4-6.9) x10^3/uL Basophils # (0-0.4) x10^3/uL Sodium (137-145) mmol/L Potassium (3.5-5.1) mmol/L Chloride (98-107) mmol/L Carbon Dioxide (22-30) mmol/L Anion Gap (5-15) MEQ/L BUN (9-20) mg/dL Creatinine (0.66-1.25) mg/dL Estimated GFR ML/MIN Glucose (74-106) mg/dL POC Glucometer 152 H (74 to 106) mg/dL Calcium (8.4-10.2) mg/dL Total Bilirubin (0.2-1.3) mg/dL AST (17-59) U/L ALT (0-50) U/L Alkaline Phosphatase (38-126) U/L Serum Total Protein (6.3-8.2) g/dL Albumin (3.5-5.0) g/dL ABO Group O Rh Factor POSITIVE Antibody Screen NEGATIVE (NEGATIVE) Crossmatch COMPATIBLE COMPATIBLE (COMPATIBLE) 09/24/22 09/24/22 09/25/22 Range/Units 16:44 22:14 04:18 WBC 11.0 H (4.0-10.5) x10^3/uL RBC 3.22 L (4.1-5.6) x10^6/uL Hgb 9.2 L D (12.5-18.0) g/dL Hct 28.5 L (42-50) % MCV 88.5 (78-100) fL MCH 28.6 (26-32) pg MCHC 32.3 (32-36) g/dL RDW 15.4 H (11.5-14.0) % Plt Count 183 (150-450) x10^3/uL MPV 10.8 (7.5-11.0) fL Gran % 83.1 H (36.0-66.0) % Immature Gran % (Auto) 0.5 H (0.00-0.4) % Nucleat RBC Rel Count 0.0 (0.00-0.1) % Eos # (Auto) 0.16 (0-0.5) x10^3/uL Immature Gran # (Auto) 0.05 H (0.00-0.03) x10^3u/L Absolute Lymphs (auto) 0.93 L (1.0-4.6) x10^3/uL Absolute Monos (auto) 0.65 (0.0-1.3) x10^3/uL Absolute Nucleated RBC 0.00 (0.00-0.01) x10^3u/L Lymphocytes % 8.5 L (24.0-44.0) % Monocytes % 5.9 (0.0-12.0) % Eosinophils % 1.5 (0.00-5.0) % Basophils % 0.5 (0.0-0.4) % Absolute Granulocytes 9.12 H (1.4-6.9) x10^3/uL Basophils # 0.06 (0-0.4) x10^3/uL Sodium (137-145) mmol/L Potassium (3.5-5.1) mmol/L Chloride (98-107) mmol/L Carbon Dioxide (22-30) mmol/L Anion Gap (5-15) MEQ/L BUN (9-20) mg/dL Creatinine (0.66-1.25) mg/dL Estimated GFR ML/MIN Glucose (74-106) mg/dL POC Glucometer 178 H 182 H (74 to 106) mg/dL Calcium (8.4-10.2) mg/dL Total Bilirubin (0.2-1.3) mg/dL AST (17-59) U/L ALT (0-50) U/L Alkaline Phosphatase (38-126) U/L Serum Total Protein (6.3-8.2) g/dL Albumin (3.5-5.0) g/dL ABO Group Rh Factor Antibody Screen (NEGATIVE) Crossmatch (COMPATIBLE) 09/25/22 09/25/22 Range/Units 05:12 07:16 WBC (4.0-10.5) x10^3/uL RBC (4.1-5.6) x10^6/uL Hgb (12.5-18.0) g/dL Hct (42-50) % MCV (78-100) fL MCH (26-32) pg MCHC (32-36) g/dL RDW (11.5-14.0) % Plt Count (150-450) x10^3/uL MPV (7.5-11.0) fL Gran % (36.0-66.0) % Immature Gran % (Auto) (0.00-0.4) % Nucleat RBC Rel Count (0.00-0.1) % Eos # (Auto) (0-0.5) x10^3/uL Immature Gran # (Auto) (0.00-0.03) x10^3u/L Absolute Lymphs (auto) (1.0-4.6) x10^3/uL Absolute Monos (auto) (0.0-1.3) x10^3/uL Absolute Nucleated RBC (0.00-0.01) x10^3u/L Lymphocytes % (24.0-44.0) % Monocytes % (0.0-12.0) % Eosinophils % (0.00-5.0) % Basophils % (0.0-0.4) % Absolute Granulocytes (1.4-6.9) x10^3/uL Basophils # (0-0.4) x10^3/uL Sodium 137 (137-145) mmol/L Potassium 4.2 (3.5-5.1) mmol/L Chloride 110 H (98-107) mmol/L Carbon Dioxide 21 L (22-30) mmol/L Anion Gap 10.5 (5-15) MEQ/L BUN 19 (9-20) mg/dL Creatinine 1.28 H (0.66-1.25) mg/dL Estimated GFR 57.9 ML/MIN Glucose 156 H (74-106) mg/dL POC Glucometer 139 H (74 to 106) mg/dL Calcium 8.1 L (8.4-10.2) mg/dL Total Bilirubin 0.70 (0.2-1.3) mg/dL AST 33 (17-59) U/L ALT 21 (0-50) U/L Alkaline Phosphatase 57 (38-126) U/L Serum Total Protein 4.6 L (6.3-8.2) g/dL Albumin 2.1 L (3.5-5.0) g/dL ABO Group Rh Factor Antibody Screen (NEGATIVE) Crossmatch (COMPATIBLE) Radiology Exams: Radiology Procedures Category Date Time Status ABDOMEN AND PELVIS W&WO CONTRA [CT] Stat Exams 09/25/22 07:25 Taken CHEST 1 VIEW (PORTABLE) Routine Exams 09/24/22 16:12 Completed Multi-Disciplinary Progress Notes: Multi-Disciplinary Progress Notes 09/24/22 15:31 Nutrition Note by Oumou Carbajal F/u Note: Diet was resumed on 09/20; currently NPO for procedure. adm weight 52kg; current weight 58.3kg. Labs 09/24= Cr 1.36, glu 152, hgb 7.0, hct 21.5. Recommend to resume po intake within 2-3 days. Will con't to monitor and f/u prn. T.ZEESHAN Carbajal Initialized on 09/24/22 15:31 - END OF NOTE 09/24/22 08:56 Case Management Note by Lissette Mcgraw S/W PATIENT- HE CONTINUES TO DENY ANY NEW NEEDS AT TIME OF DC. HE WAS OFFERED C- HE DECLINED AGAIN. HE PLANS TO RETURN HOME TO HIS PLF AT TIME OF DC Initialized on 09/24/22 08:56 - END OF NOTE Assessment/Plan (1) GI bleed Current Visit: Yes Status: Acute Qualifiers: GI bleed type/associated pathology: unspecified gastrointestinal hemorrhage type Qualified Code(s): K92.2 - Gastrointestinal hemorrhage, unspecified Assessment & Plan: S: no acute issues ovenright. no bm.s no abd pain. no n/v. wants to eat O vss nad nonlabroed resps rrr nd, soft, nttp hgb9/2 from [address] images triple phase reviewed. a/p: 77yo male with hx of whipple with GIB that has apparently resolved. EGD and partial colonoscopy without obvious source. CT images reviewed with readiologist today. there is no evidence of active extrav. there is prominence in the stomach but he has already had EGD. the colon isn't a perfect view on the imaging. offered pt observation with serial hgb here vs immediate transfer to tertiary center. He doesn't want transfered right now. If there is any additional evidence of repeat bleed he would need transferred to [facility] center with possibility of bleeding scan or push enteroscopy/repeat endoscopy/angiography. -regular diet for now -trend hgb. -we need to be notified of any repeat bleeding. he would likely need transferred -he will need outpt follow up with [facility] within the next few weeks if he does well and discharges. Code(s): K92.2 - GASTROINTESTINAL HEMORRHAGE, UNSPECIFIED
[2022-09-25] MEDS: ZENPEP DR 5,000 UNIT CAPSULE PO SCH ×4 (09:14→21:53)
--- NOTE | 2022-09-25 09:31 | XRAY ---
Indication: GI bleed. Whipple procedure. Multiple contiguous axial images obtained through the abdomen and pelvis prior to, following, and delayed 80 cc Isovue 370 contrast. Comparison: None Lung bases demonstrates pulmonary emphysema, incompletely visualized bilateral lower lobe patchy consolidating airspace disease, and a few tiny right costophrenic angle calcified granulomas. Heart not enlarged. Noncontrasted images demonstrates mild scattered vascular calcifications including distal right renal artery. A few incidental tiny splenic calcified granulomas. Noncontrasted stomach and bowel loops appear nonobstructed. Postcontrast images demonstrate normal visceral enhancement and renal excretion. Empty stomach demonstrates marked diffuse gastric wall/rugal fold thickening and enhancement especially the mid to proximal stomach, possible gastritis. Malignancy such as lymphoma not completely excluded. Duodenum demonstrates additional abnormal circumferential wall thickening/enhancement. Majority of colon also demonstrates abnormal circumferential wall thickening greatest in ascending and transverse colon favoring colitis. Venous and delayed images are negative for abnormal contrast collection in the GI tract suggesting active hemorrhage. Small abdominal/pelvic free fluid but no walled off fluid collection or free air. Whipple procedure is reported. A normal appearing pancreas not identified. Previous cholecystectomy with small amount of pneumobilia. Spleen demonstrates a few splenules and a few tiny calcified granulomas. A few small bilateral renal cysts, largest right midpole measuring 1.5 cm. Minimally distended urinary bladder demonstrates Levin balloon catheter in situ with intraluminal air. Remaining liver, adrenal glands, and ureters are unremarkable. Mild scattered aortoiliac calcifications. No AAA or pathologic retroperitoneal lymphadenopathy. Osseous structures intact with osteopenia, mild/moderate degenerative changes throughout the spine, mild levoscoliosis centered at L2, and moderate degenerative changes both hips. Small periumbilical ventral hernia with loop of bowel herniating without complications. Impression: 1. Incompletely visualized bibasilar consolidating airspace disease. Rule out aspiration pneumonia. 2. Abnormal diffuse gastric wall/rugal fold thickening and enhancement. Similar appearance/enhancement duodenum. Findings favor gastroduodenitis. Malignancy/lymphoma not completely excluded. 3. Diffuse colonic bowel wall thickening favoring colitis. 4. Small nonspecific abdominal/pelvic free fluid. No walled off fluid collection/free air. 5. Negative for active large GI bleed. 6. Chronic findings including pulmonary emphysema, Whipple's procedure, cholecystectomy with pneumobilia, bilateral renal cysts, arteriosclerotic disease, chronic bony findings, and small periumbilical ventral hernia. Comment: Study was reviewed with the ordering clinician, Dr. Tejas Corral.
[2022-09-25 09:36] LABS: BINAX RAPID TEST RESULTS NEGATIVE (NEGATIVE)
[2022-09-25] MEDS: DELTASONE 5 MG PO SCH (10:38)
[2022-09-25] MEDS: SYNTHROID 50 MCG PO SCH (10:38)
[2022-09-25] MEDS: NORVASC 5 MG PO SCH ×2 (10:38→21:53)
[2022-09-25] MEDS: PROTONIX 40 MG IV IV SCH ×2 (10:38→21:53)
--- NOTE | 2022-09-25 13:30 | PCM.NOTE ---
Date and Time: 09/25/22 1327 Subjective Assessment: Pt is feeling well. No stools last night or today. Giancarlo po well. Denies any pain. - Review of Systems Constitutional: No Fever Abdominal/Gastrointestinal: No Vomiting Objective Exam General Appearance: no apparent distress, alert Neurologic Exam: oriented x 3, cooperative Skin Exam: normal color, warm, dry, No rash Neck Exam: normal inspection Respiratory Exam: normal breath sounds, lungs clear, No crackles/rales, No rhonchi, No wheezing Cardiovascular Exam: regular rate/rhythm, normal heart sounds, No murmur Gastrointestinal/Abdomen Exam: soft, normal bowel sounds, No tenderness, No distention, No mass, No guarding, No rebound Extremity Exam: normal inspection, No pedal edema, No swelling Back Exam: normal inspection, No rash OBJECTIVE DATA Vital Signs: Vital Signs - 24 hr Temp Pulse Resp BP Pulse Ox 09/25/22 11:40 98.2 F 80 17 118/81 98 09/25/22 08:00 98.2 F 78 17 124/69 98 09/25/22 07:28 94 L 09/25/22 04:00 98.6 F 78 18 117/76 96 09/25/22 00:00 98.2 F 79 18 133/81 98 09/24/22 19:51 97.4 F 70 16 110/70 96 09/24/22 19:28 95 09/24/22 16:20 66 16 97 09/24/22 16:00 96.9 F 65 16 132/73 98 Pain Assessment - Last Documented Pain Intensity 0 Intake and Output: Intake & Output 09/23/22 09/24/22 09/25/22 09/26/22 11:59 11:59 11:59 11:59 Intake Total 2728 4760 500 Output Total 975 6500 1850 Balance 1753 -1740 -1350 Weight 58.1 kg 58.3 kg Lab Results: Lab Results-Last 24 Hours 09/24/22 09/24/22 09/25/22 Range/Units 16:44 22:14 04:18 WBC 11.0 H (4.0-10.5) x10^3/uL RBC 3.22 L (4.1-5.6) x10^6/uL Hgb 9.2 L D (12.5-18.0) g/dL Hct 28.5 L (42-50) % MCV 88.5 (78-100) fL MCH 28.6 (26-32) pg MCHC 32.3 (32-36) g/dL RDW 15.4 H (11.5-14.0) % Plt Count 183 (150-450) x10^3/uL MPV 10.8 (7.5-11.0) fL Gran % 83.1 H (36.0-66.0) % Immature Gran % (Auto) 0.5 H (0.00-0.4) % Nucleat RBC Rel Count 0.0 (0.00-0.1) % Eos # (Auto) 0.16 (0-0.5) x10^3/uL Immature Gran # (Auto) 0.05 H (0.00-0.03) x10^3u/L Absolute Lymphs (auto) 0.93 L (1.0-4.6) x10^3/uL Absolute Monos (auto) 0.65 (0.0-1.3) x10^3/uL Absolute Nucleated RBC 0.00 (0.00-0.01) x10^3u/L Lymphocytes % 8.5 L (24.0-44.0) % Monocytes % 5.9 (0.0-12.0) % Eosinophils % 1.5 (0.00-5.0) % Basophils % 0.5 (0.0-0.4) % Absolute Granulocytes 9.12 H (1.4-6.9) x10^3/uL Basophils # 0.06 (0-0.4) x10^3/uL Sodium (137-145) mmol/L Potassium (3.5-5.1) mmol/L Chloride (98-107) mmol/L Carbon Dioxide (22-30) mmol/L Anion Gap (5-15) MEQ/L BUN (9-20) mg/dL Creatinine (0.66-1.25) mg/dL Estimated GFR ML/MIN Glucose (74-106) mg/dL POC Glucometer 178 H 182 H (74 to 106) mg/dL Calcium (8.4-10.2) mg/dL Total Bilirubin (0.2-1.3) mg/dL AST (17-59) U/L ALT (0-50) U/L Alkaline Phosphatase (38-126) U/L Serum Total Protein (6.3-8.2) g/dL Albumin (3.5-5.0) g/dL SARS-CoV-2 Ag (Rapid) (NEGATIVE) 09/25/22 09/25/22 09/25/22 Range/Units 05:12 07:16 09:10 WBC (4.0-10.5) x10^3/uL RBC (4.1-5.6) x10^6/uL Hgb (12.5-18.0) g/dL Hct (42-50) % MCV (78-100) fL MCH (26-32) pg MCHC (32-36) g/dL RDW (11.5-14.0) % Plt Count (150-450) x10^3/uL MPV (7.5-11.0) fL Gran % (36.0-66.0) % Immature Gran % (Auto) (0.00-0.4) % Nucleat RBC Rel Count (0.00-0.1) % Eos # (Auto) (0-0.5) x10^3/uL Immature Gran # (Auto) (0.00-0.03) x10^3u/L Absolute Lymphs (auto) (1.0-4.6) x10^3/uL Absolute Monos (auto) (0.0-1.3) x10^3/uL Absolute Nucleated RBC (0.00-0.01) x10^3u/L Lymphocytes % (24.0-44.0) % Monocytes % (0.0-12.0) % Eosinophils % (0.00-5.0) % Basophils % (0.0-0.4) % Absolute Granulocytes (1.4-6.9) x10^3/uL Basophils # (0-0.4) x10^3/uL Sodium 137 (137-145) mmol/L Potassium 4.2 (3.5-5.1) mmol/L Chloride 110 H (98-107) mmol/L Carbon Dioxide 21 L (22-30) mmol/L Anion Gap 10.5 (5-15) MEQ/L BUN 19 (9-20) mg/dL Creatinine 1.28 H (0.66-1.25) mg/dL Estimated GFR 57.9 ML/MIN Glucose 156 H (74-106) mg/dL POC Glucometer 139 H (74 to 106) mg/dL Calcium 8.1 L (8.4-10.2) mg/dL Total Bilirubin 0.70 (0.2-1.3) mg/dL AST 33 (17-59) U/L ALT 21 (0-50) U/L Alkaline Phosphatase 57 (38-126) U/L Serum Total Protein 4.6 L (6.3-8.2) g/dL Albumin 2.1 L (3.5-5.0) g/dL SARS-CoV-2 Ag (Rapid) NEGATIVE A* (NEGATIVE) 09/25/22 Range/Units 11:18 WBC (4.0-10.5) x10^3/uL RBC (4.1-5.6) x10^6/uL Hgb (12.5-18.0) g/dL Hct (42-50) % MCV (78-100) fL MCH (26-32) pg MCHC (32-36) g/dL RDW (11.5-14.0) % Plt Count (150-450) x10^3/uL MPV (7.5-11.0) fL Gran % (36.0-66.0) % Immature Gran % (Auto) (0.00-0.4) % Nucleat RBC Rel Count (0.00-0.1) % Eos # (Auto) (0-0.5) x10^3/uL Immature Gran # (Auto) (0.00-0.03) x10^3u/L Absolute Lymphs (auto) (1.0-4.6) x10^3/uL Absolute Monos (auto) (0.0-1.3) x10^3/uL Absolute Nucleated RBC (0.00-0.01) x10^3u/L Lymphocytes % (24.0-44.0) % Monocytes % (0.0-12.0) % Eosinophils % (0.00-5.0) % Basophils % (0.0-0.4) % Absolute Granulocytes (1.4-6.9) x10^3/uL Basophils # (0-0.4) x10^3/uL Sodium (137-145) mmol/L Potassium (3.5-5.1) mmol/L Chloride (98-107) mmol/L Carbon Dioxide (22-30) mmol/L Anion Gap (5-15) MEQ/L BUN (9-20) mg/dL Creatinine (0.66-1.25) mg/dL Estimated GFR ML/MIN Glucose (74-106) mg/dL POC Glucometer 238 H (74 to 106) mg/dL Calcium (8.4-10.2) mg/dL Total Bilirubin (0.2-1.3) mg/dL AST (17-59) U/L ALT (0-50) U/L Alkaline Phosphatase (38-126) U/L Serum Total Protein (6.3-8.2) g/dL Albumin (3.5-5.0) g/dL SARS-CoV-2 Ag (Rapid) (NEGATIVE) Radiology Exams: Radiology Procedures Category Date Time Status ABDOMEN AND PELVIS W&WO CONTRA [CT] Stat Exams 09/25/22 07:25 Completed CHEST 1 VIEW (PORTABLE) Routine Exams 09/24/22 16:12 Completed Multi-Disciplinary Progress Notes: Multi-Disciplinary Progress Notes 09/25/22 11:51 Case Management Note by Lilliana Freeman S/W PATIENT- HE CONTINUES TO DENY ANY NEW NEEDS AT TIME OF DC. . HE PLANS TO RETURN HOME TO HIS PLOF AT TIME OF DC. NO NEW NEEDS IDENTIFIED Initialized on 09/25/22 11:51 - END OF NOTE 09/24/22 15:31 Nutrition Note by Oumou Carbajal F/u Note: Diet was resumed on 09/20; currently NPO for procedure. adm weight 52kg; current weight 58.3kg. Labs 09/24= Cr 1.36, glu 152, hgb 7.0, hct 21.5. Recommend to resume po intake within 2-3 days. Will con't to monitor and f/u prn. T.ZEESHAN Carbajal Initialized on 09/24/22 15:31 - END OF NOTE Assessment/Plan (1) GI bleed Current Visit: Yes Status: Acute Qualifiers: GI bleed type/associated pathology: unspecified gastrointestinal hemorrhage type Qualified Code(s): K92.2 - Gastrointestinal hemorrhage, unspecified Assessment & Plan: Currently not bleeding. Surgery said that for further workup pt must go to [facility]. However, with no further bleeding and maintained hgb at 9.2 this morning, pt opts to wait and see and I think this is reasonable. Recheck CBC tomorrow; if no further signs of bleeding and stable hgb, will likely d/c to home tomorrow for OP follow up. Code(s): K92.2 - GASTROINTESTINAL HEMORRHAGE, UNSPECIFIED (2) Blood transfusion during current hospitalisation Current Visit: Yes Status: Acute Code(s): KLT2889 - (3) COVID-19 virus infection Current Visit: Yes Status: Acute Code(s): U07.1 - COVID-19 (4) Hyperglycemia Current Visit: Yes Status: Chronic Code(s): R73.9 - HYPERGLYCEMIA, UNSPECIFIED (5) HTN (hypertension) Current Visit: No Status: Chronic Qualifiers: Hypertension type: primary hypertension Qualified Code(s): I10 - Essential (primary) hypertension Code(s): I10 - ESSENTIAL (PRIMARY) HYPERTENSION (6) Sarcoidosis Current Visit: No Status: Chronic Code(s): D86.9 - SARCOIDOSIS, UNSPECIFIED (7) Hx of malignant neoplasm of pancreas Current Visit: No Status: Chronic Code(s): Z85.07 - PERSONAL HISTORY OF MALIGNANT NEOPLASM OF PANCREAS (8) Diabetes mellitus type II, uncontrolled Current Visit: Yes Status: Chronic Qualifiers: Glycemic state: with hyperglycemia Qualified Code(s): E11.65 - Type 2 diabetes mellitus with hyperglycemia Code(s): WFN7477 - (9) Chronic renal disease Current Visit: Yes Status: Chronic Assessment & Plan: eGFR 57.9 this morning. Code(s): N18.9 - CHRONIC KIDNEY DISEASE, UNSPECIFIED
[2022-09-25] MEDS: HUMULIN R SQ PRN ×2 (17:29→21:53)
[2022-09-25 19:18] LABS: Hematocrit 26.6 % (42-50); Hemoglobin 8.5 g/dL (12.5-18.0); Mean Corpuscular Hemoglobin 29.4 pg (26-32); Mean Platelet Volume 10.3 fL (7.5-11.0); Platelet Count 193 x10^3/uL (150-450); Red Blood Count 2.89 x10^6/uL (4.1-5.6); Red Cell Distribution Width 15.9 % (11.5-14.0); White Blood Count 8.4 x10^3/uL (4.0-10.5)
[2022-09-26 05:20] LABS: Hematocrit 23.3 % (42-50); Hemoglobin 7.4 g/dL (12.5-18.0); Mean Cell Volume 90.3 fL (78-100); Mean Corpuscular Hemoglobin 28.7 pg (26-32); Mean Corpuscular Hgb Concent. 31.8 g/dL (32-36); Mean Platelet Volume 10.3 fL (7.5-11.0); Platelet Count 183 x10^3/uL (150-450); Red Blood Count 2.58 x10^6/uL (4.1-5.6); Red Cell Distribution Width 15.9 % (11.5-14.0); White Blood Count 8.8 x10^3/uL (4.0-10.5)
[2022-09-26 06:07] LABS: ALBUMIN 2.1 g/dL (3.5-5.0); ANION GAP 8.7 MEQ/L (5-15); BILIRUBIN,TOTAL 0.3 mg/dL (0.2-1.3); Calcium 8.2 mg/dL (8.4-10.2); Creatinine 1 1.46 mg/dL (0.66-1.25); EST GLOMERULAR FILTRATION RATE 49.8 ML/MIN; Potassium 3.6 mmol/L (3.5-5.1); Total Protein 4.7 g/dL (6.3-8.2)
--- NOTE | 2022-09-26 08:41 | OP ---
PROCEDURE DATE/TIME: 09/24/2022 1500 PREOPERATIVE DIAGNOSIS: GI bleed. POSTOPERATIVE DIAGNOSES: 1) GI bleed unknown source. 2) Splenic flexure polyp. 3) Tortuous colon. 4) Old blood in colon. PROCEDURE: Colonoscopy to ascending colon with cold snare polypectomy splenic flexure polyp. PROCEDURE PERFORMED BY: Blanca Corral M.D. ANESTHESIA: MAC. ESTIMATED BLOOD LOSS: Minimal. COMPLICATIONS: None but the patient did have a nosebleed during the procedure. He had a tortuous colon. There was blood in the colon and the procedure was complete only to the level of the ascending colon. SPECIMEN: Splenic flexure polyp. PROCEDURE DETAILS: This is a gentleman who has a history of pancreatic cancer. He was admitted for GI bleed. He has continued to bleed with 8 units of blood transfused. He did have a negative EGD and due to the continued bleeding, he has been recommended for further evaluation with colonoscopy. I have discussed the case with my partner. I also personally evaluated the patient on the day of the procedure and spoke with him directly. He understands the risks, benefits and alternatives of colonoscopy. He is okay with suspending his Do Not Resuscitate status during the procedure and the immediate postoperative period during recovery. He is currently stable. He is afebrile. His heart rate is 65. His blood pressure 131/78, respiratory rate 16 and he is 100% he has been placed on nasal cannula for the procedure. He was awake, alert and appropriate. Abdomen nontender. He does have a midline incision from his pancreatic surgery as well as an incisional hernia here that is soft and nontender. He has had a prep with a report of clear stool and he does have melena yesterday. His hemoglobin also has been checked and he is currently getting a unit of blood. I have answered all of his questions and he would like to proceed. DESCRIPTION OF PROCEDURE: He was then placed in the left lateral decubitus position. A complete time out was performed. First a rectal exam was done. He does have hemorrhoids. These are not bleeding. The scope was then inserted and gently advanced to the level of the proximal ascending colon. The patient does have a very tortuous colon. He did also have blood throughout his colon. I did not see any blood in the rectum or the sigmoid colon. However, at the proximal descending colon as well as the transverse colon and ascending colon there did appear to be more and more blood this was blood tinged relatively see through. There were no large clots which did appear to be old. There was no active bright red blood ever encountered and I did not see an obvious source for this blood. He did have a small splenic flexure polyp that was semi-pedunculated polyp about 3 to 4 mm that was taken up with cold snare and this site is hemostatic. We did attempt to reposition the patient and apply gentle abdominal pressure. He did have a nosebleed towards the later part of the procedure and due to his colonic anatomy, the tortuosity and his nosebleed we decided to stop the procedure at that point and start withdrawing the scope. The proximal aspect of the ascending colon and cecum were not able to be evaluated. As I did withdrawal the scope, I did not find any other sites of concern. He does have diverticulosis. He did have a polyp removed. There is no active bleeding. However, there is old blood. My suspicion is that this may be coming from higher up in the small bowel or at an anastomosis or it could be coming from an area of the colon that we have not seen. I have discussed the case with my partner afterwards who did his EGD and then our other partners who will be covering tomorrow and then we did call the floor and let them know that due to his transfusional requirement at this time my best recommendation would be to transfer him to a higher level of care where he had his Whipple procedure and this will be further discussed with the patient once he awakes and has recovered from the procedure and then our further planning will go from there.
[2022-09-26] MEDS: ZENPEP DR 5,000 UNIT CAPSULE PO SCH ×4 (08:48→21:33)
[2022-09-26] MEDS: DELTASONE 5 MG PO SCH (08:48)
[2022-09-26] MEDS: SYNTHROID 50 MCG PO SCH (08:49)
[2022-09-26] MEDS: PROTONIX 40 MG IV IV SCH ×2 (08:52→21:41)
[2022-09-26] MEDS: NORVASC 5 MG PO SCH ×2 (11:16→21:33)
--- NOTE | 2022-09-26 12:38 | PCM.DS ---
Discharge Summary Date of Admission: 09/18/22 15:05 Admitting Physician: ISRAEL CORDERO Consults: Consults on Case 09/19/22 12:07 Consult Surgery ROUTINE Primary Care Provider: FALLON GARCIA Allergies Allergies No Known Drug Allergies Allergy (Verified 09/18/22 12:27) Hospital Summary - Hospital Course Hospital Course: is a 77 year old male pt of Dr. Patrizia Garcia with hx pancreatic ca (Hx whipple procedure; last chemo 1 mo ago), HTN, HLD, DM uncontrolled, sarcoidosis who came in to ER with weakness and dark stools. Hgb was 5.5 and covid +. He was given 3 units of blood at that time, but continued to have melanotic and maroon stools. He had EGD which was nonacute. Surgery also ordered CTA abd/pelvis which was neg for GI bleed. Colonoscopy was attempted but could not be done past the sigmoid due to stricture. Surgery advised no further workup could be done here. Meanwhile, he continued to have bloody stools and received a total of 8 units of blood in transfusion. After his last transfusion and colonoscopy, pt went >24 hours without a bloody stool and wanted to wait and observe if the bleeding had stopped. Unfortunately, yesterday afternoon he had a large bright red bloody stool. He had a smaller bloody stool last night as well. His hgb this morning went from 9.2 to 8.8. This morning he is feeling okay, does have increased fatigue. Denies pain. Yesterday I spoke with hospitalist and GI services at and the hospitalist will accept the patient in transfer. However, we are waiting for a bed. - Vitals & Intake/Output Vital Signs: Vital Signs Temperature 97.7 F 09/26/22 11:41 Pulse Rate 85 09/26/22 11:41 Respiratory Rate 16 09/26/22 11:41 Blood Pressure 103/66 09/26/22 11:41 O2 Sat by Pulse Oximetry 98 09/26/22 11:41 Intake & Output: Intake & Output 09/24/22 09/25/22 09/26/22 09/27/22 11:59 11:59 11:59 11:59 Intake Total 4760 500 1440 Output Total 6500 1850 1850 Balance -1740 -1350 -410 Weight 58.3 kg 57.3 kg 57.6 kg - Lab Result Diagrams: 09/26/22 04:00 09/26/22 05:15 Lab Results-Last 24 Hrs: Lab Results-Last 24 Hours 09/25/22 09/25/22 09/25/22 Range/Units 16:31 16:43 16:55 WBC (4.0-10.5) x10^3/uL RBC (4.1-5.6) x10^6/uL Hgb (12.5-18.0) g/dL Hct (42-50) % MCV (78-100) fL MCH (26-32) pg MCHC (32-36) g/dL RDW (11.5-14.0) % Plt Count (150-450) x10^3/uL MPV (7.5-11.0) fL Sodium (137-145) mmol/L Potassium (3.5-5.1) mmol/L Chloride (98-107) mmol/L Carbon Dioxide (22-30) mmol/L Anion Gap (5-15) MEQ/L BUN (9-20) mg/dL Creatinine (0.66-1.25) mg/dL Estimated GFR ML/MIN Glucose 563 H* (74-106) mg/dL POC Glucometer 512 H* 519 H* (50 to 500) mg/dL Calcium (8.4-10.2) mg/dL Total Bilirubin (0.2-1.3) mg/dL AST (17-59) U/L ALT (0-50) U/L Alkaline Phosphatase (38-126) U/L Serum Total Protein (6.3-8.2) g/dL Albumin (3.5-5.0) g/dL 09/25/22 09/25/22 09/25/22 Range/Units 19:10 19:41 21:27 WBC 8.4 (4.0-10.5) x10^3/uL RBC 2.89 L (4.1-5.6) x10^6/uL Hgb 8.5 L (12.5-18.0) g/dL Hct 26.6 L (42-50) % MCV 92.0 (78-100) fL MCH 29.4 (26-32) pg MCHC 32.0 (32-36) g/dL RDW 15.9 H (11.5-14.0) % Plt Count 193 (150-450) x10^3/uL MPV 10.3 (7.5-11.0) fL Sodium (137-145) mmol/L Potassium (3.5-5.1) mmol/L Chloride (98-107) mmol/L Carbon Dioxide (22-30) mmol/L Anion Gap (5-15) MEQ/L BUN (9-20) mg/dL Creatinine (0.66-1.25) mg/dL Estimated GFR ML/MIN Glucose (74-106) mg/dL POC Glucometer 470 H 412 H (50 to 500) mg/dL Calcium (8.4-10.2) mg/dL Total Bilirubin (0.2-1.3) mg/dL AST (17-59) U/L ALT (0-50) U/L Alkaline Phosphatase (38-126) U/L Serum Total Protein (6.3-8.2) g/dL Albumin (3.5-5.0) g/dL 09/26/22 09/26/22 09/26/22 Range/Units 04:00 05:15 06:52 WBC 8.8 (4.0-10.5) x10^3/uL RBC 2.58 L (4.1-5.6) x10^6/uL Hgb 7.4 L (12.5-18.0) g/dL Hct 23.3 L (42-50) % MCV 90.3 (78-100) fL MCH 28.7 (26-32) pg MCHC 31.8 L (32-36) g/dL RDW 15.9 H (11.5-14.0) % Plt Count 183 (150-450) x10^3/uL MPV 10.3 (7.5-11.0) fL Sodium 138 (137-145) mmol/L Potassium 3.6 (3.5-5.1) mmol/L Chloride 109 H (98-107) mmol/L Carbon Dioxide 23 (22-30) mmol/L Anion Gap 8.7 (5-15) MEQ/L BUN 19 (9-20) mg/dL Creatinine 1.46 H (0.66-1.25) mg/dL Estimated GFR 49.8 ML/MIN Glucose 71 L (74-106) mg/dL POC Glucometer 65 L (50 to 500) mg/dL Calcium 8.2 L (8.4-10.2) mg/dL Total Bilirubin 0.30 (0.2-1.3) mg/dL AST 27 (17-59) U/L ALT 19 (0-50) U/L Alkaline Phosphatase 54 (38-126) U/L Serum Total Protein 4.7 L (6.3-8.2) g/dL Albumin 2.1 L (3.5-5.0) g/dL 09/26/22 Range/Units 11:05 WBC (4.0-10.5) x10^3/uL RBC (4.1-5.6) x10^6/uL Hgb (12.5-18.0) g/dL Hct (42-50) % MCV (78-100) fL MCH (26-32) pg MCHC (32-36) g/dL RDW (11.5-14.0) % Plt Count (150-450) x10^3/uL MPV (7.5-11.0) fL Sodium (137-145) mmol/L Potassium (3.5-5.1) mmol/L Chloride (98-107) mmol/L Carbon Dioxide (22-30) mmol/L Anion Gap (5-15) MEQ/L BUN (9-20) mg/dL Creatinine (0.66-1.25) mg/dL Estimated GFR ML/MIN Glucose (74-106) mg/dL POC Glucometer 212 H (50 to 500) mg/dL Calcium (8.4-10.2) mg/dL Total Bilirubin (0.2-1.3) mg/dL AST (17-59) U/L ALT (0-50) U/L Alkaline Phosphatase (38-126) U/L Serum Total Protein (6.3-8.2) g/dL Albumin (3.5-5.0) g/dL Micro Results-Entire Visit: Microbiology 09/18/22 12:48 Blood Culture Gram Stain - Final Blood Not Reportable Blood Culture - Final NO GROWTH 09/18/22 12:35 Blood Culture Gram Stain - Final Blood Not Reportable Blood Culture - Final NO GROWTH 09/18/22 12:41 Urine Culture - Final Catherized <10K NORMAL SKIN MARTHA PROBABLE SKIN CONTAMINANT Accuchecks Date 09/26/22 Date 09/26/22 Date 09/25/22 Time 11:58 Time 08:05 Time 17:32 - Radiology Exams Ordered Rad Exams-Entire Visit: Radiology Procedures Category Date Time Status ABDOMEN AND PELVIS W&WO CONTRA [CT] Stat Exams 09/25/22 07:25 Completed CHEST 1 VIEW (PORTABLE) Routine Exams 09/24/22 16:12 Completed - Procedures and Test Procedures and Tests throughout Hospitalization: Therapy Orders & Screens 09/24/22 16:38 Respiratory Therapy Assessment ONCE Comment: Diagnosis: COVID-19 infection, anemia Discharge Exam General Appearance: no apparent distress, thin Neurologic Exam: alert, cooperative Eye Exam: eyes nml inspection Ears, Nose, Throat Exam: moist mucous membranes Neck Exam: normal inspection Respiratory Exam: normal breath sounds, lungs clear, No crackles/rales, No rhonchi, No wheezing Cardiovascular Exam: regular rate/rhythm, normal heart sounds, No murmur Gastrointestinal/Abdomen Exam: soft, normal bowel sounds, No tenderness, No distention, No mass, No guarding, No rebound Extremity Exam: normal inspection, No pedal edema, No swelling Skin Exam: normal color, warm, dry, No rash Final Diagnosis/Problem List - Final Discharge Diagnosis/Problem (1) GI bleed Current Visit: Yes Status: Acute Assessment & Plan: Transfer to for further workup. If he has more bleeding here, would certainly recheck CBC stat and transfuse if needed. Code(s): K92.2 - GASTROINTESTINAL HEMORRHAGE, UNSPECIFIED (2) Blood transfusion during current hospitalisation Current Visit: Yes Status: Acute Code(s): [id number] - (3) COVID-19 virus infection Current Visit: Yes Status: Acute Assessment & Plan: Was covid pos on admission, currently out of isolation. Code(s): U07.1 - COVID-19 (4) Hyperglycemia Current Visit: Yes Status: Chronic Code(s): R73.9 - HYPERGLYCEMIA, UNSPECIFIED (5) HTN (hypertension) Current Visit: No Status: Chronic Code(s): I10 - ESSENTIAL (PRIMARY) HYPERTENSION (6) Sarcoidosis Current Visit: No Status: Chronic Code(s): D86.9 - SARCOIDOSIS, UNSPECIFIED (7) Hx of malignant neoplasm of pancreas Current Visit: No Status: Chronic Code(s): Z85.07 - PERSONAL HISTORY OF MALIGNANT NEOPLASM OF PANCREAS (8) Diabetes mellitus type II, uncontrolled Current Visit: Yes Status: Chronic Code(s): LTF2684 - (9) Chronic renal disease Current Visit: Yes Status: Chronic Code(s): N18.9 - CHRONIC KIDNEY DISEASE, UNSPECIFIED - Discharge Disposition: Home, Self-Care Condition: Fair Prescriptions: No Action Amlodipine Besylate [Norvasc] 5 mg PO BID Lipase/Protease/Amylase [[place] Dr 6,000 Unit Capsule] 1 cap PO QID Glipizide 10 mg [Glucotrol 10 MG] 10 mg PO DAILY Levothyroxine Sodium 50 mcg PO DAILY Metformin HCl 500 mg [Glucophage 500 MG] 500 mg PO BIDWM Prednisone 10 mg [Deltasone 10 mg] 5 mg PO DAILY Albuterol 8 gm Mdi Hfa [Ventolin Hfa MDI] 2 puffs IH QID Follow up with: FALLON GARCIA [Primary Care Provider] -
[2022-09-26] MEDS: HUMULIN R SQ PRN (21:56)
[2022-09-27 05:30] LABS: Hematocrit 19.2 % (42-50); Mean Cell Volume 91.4 fL (78-100); Mean Corpuscular Hemoglobin 28.6 pg (26-32); Mean Corpuscular Hgb Concent. 31.3 g/dL (32-36); Mean Platelet Volume 10.5 fL (7.5-11.0); Platelet Count 211 x10^3/uL (150-450); Red Cell Distribution Width 15.6 % (11.5-14.0); White Blood Count 8.8 x10^3/uL (4.0-10.5)
[2022-09-27 05:43] LABS: ALBUMIN 2.1 g/dL (3.5-5.0); ANION GAP 7.8 MEQ/L (5-15); BILIRUBIN,TOTAL 0.4 mg/dL (0.2-1.3); Calcium 8.2 mg/dL (8.4-10.2); Creatinine 1 1.76 mg/dL (0.66-1.25); EST GLOMERULAR FILTRATION RATE 40.1 ML/MIN; Potassium 4.2 mmol/L (3.5-5.1); Total Protein 4.5 g/dL (6.3-8.2)
[2022-09-27 07:53] LABS: ABO TYPING O; Antibody Screen NEGATIVE (NEGATIVE); RH TYPING POSITIVE
[2022-09-27 07:56] LABS: CROSS MATCH (PRBC) COMPATIBLE (COMPATIBLE)
[2022-09-27] MEDS ORDERED: Sodium Chloride 0.9% 500 ML 500 ML IV SCH (08:00)
[2022-09-27] MEDS: ZENPEP DR 5,000 UNIT CAPSULE PO SCH ×4 (08:37→22:17)
--- NOTE | 2022-09-27 08:47 | PCM.DS ---
Discharge Summary Date of Admission: 09/18/22 15:05 Admitting Physician: ISRAEL CORDERO Consults: Consults on Case 09/19/22 12:07 Consult Surgery ROUTINE Primary Care Provider: FALLON GARCIA Allergies Allergies No Known Drug Allergies Allergy (Verified 09/18/22 12:27) Hospital Summary - Hospital Course Hospital Course: is a 77 year old male pt of Dr. Patrizia Garcia with hx pancreatic ca (Hx whipple procedure; last chemo 1 mo ago), HTN, HLD, DM uncontrolled, sarcoidosis who came in to ER with weakness and dark stools. Hgb was 5.5 and covid +. He was given 3 units of blood at that time, but continued to have melanotic and maroon stools. He had EGD which was nonacute. Surgery also ordered CTA abd/pelvis which was neg for GI bleed. Colonoscopy was attempted but could not be done past the sigmoid due to stricture. Surgery advised no further workup could be done here. Meanwhile, he continued to have bloody stools and will have received a total of 10 units of blood in transfusion this hospitalization (after his transfusion today). After his colonoscopy, pt went >24 hours without a bloody stool and wanted to wait and observe if the bleeding had stopped. Unfortunately, that next afte rnoon he had a large bright red bloody stool. His hgb yesterday morning was 7.0, and this morning was 6.0 so he is going to be transfused 2 more units of blood. This morning he is feeling okay. Denies pain. No stools last night but did have several yesterday. Two days ago now I spoke with hospitalist and GI services at and the hospitalist will accept the patient in transfer. However, we have been waiting for a bed and if we can't get one in [facility] today we will try again for a bed in [place]. - Vitals & Intake/Output Vital Signs: Vital Signs Temperature 97.6 F 09/27/22 07:59 Pulse Rate 85 09/27/22 07:59 Respiratory Rate 16 09/27/22 07:59 Blood Pressure 95/59 09/27/22 07:59 O2 Sat by Pulse Oximetry 93 L 09/27/22 07:59 Intake & Output: Intake & Output 09/24/22 09/25/22 09/26/22 09/27/22 11:59 11:59 11:59 11:59 Intake Total 4760 500 1440 620 Output Total 6500 1850 1850 750 Balance -1740 -1350 -410 -130 Weight 58.3 kg 57.3 kg 57.6 kg - Lab Result Diagrams: 09/27/22 05:15 09/27/22 05:15 Lab Results-Last 24 Hrs: Lab Results-Last 24 Hours 09/26/22 09/26/22 09/26/22 Range/Units 11:05 16:11 21:41 WBC (4.0-10.5) x10^3/uL RBC (4.1-5.6) x10^6/uL Hgb (12.5-18.0) g/dL Hct (42-50) % MCV (78-100) fL MCH (26-32) pg MCHC (32-36) g/dL RDW (11.5-14.0) % Plt Count (150-450) x10^3/uL MPV (7.5-11.0) fL Sodium (137-145) mmol/L Potassium (3.5-5.1) mmol/L Chloride (98-107) mmol/L Carbon Dioxide (22-30) mmol/L Anion Gap (5-15) MEQ/L BUN (9-20) mg/dL Creatinine (0.66-1.25) mg/dL Estimated GFR ML/MIN Glucose (74-106) mg/dL POC Glucometer 212 H 340 H 361 H (74 to 106) mg/dL Calcium (8.4-10.2) mg/dL Total Bilirubin (0.2-1.3) mg/dL AST (17-59) U/L ALT (0-50) U/L Alkaline Phosphatase (38-126) U/L Serum Total Protein (6.3-8.2) g/dL Albumin (3.5-5.0) g/dL ABO Group Rh Factor Antibody Screen (NEGATIVE) Crossmatch (COMPATIBLE) 09/27/22 09/27/22 09/27/22 Range/Units 05:15 05:15 06:24 WBC 8.8 (4.0-10.5) x10^3/uL RBC 2.10 L (4.1-5.6) x10^6/uL Hgb 6.0 L* (12.5-18.0) g/dL Hct 19.2 L (42-50) % MCV 91.4 (78-100) fL MCH 28.6 (26-32) pg MCHC 31.3 L (32-36) g/dL RDW 15.6 H (11.5-14.0) % Plt Count 211 (150-450) x10^3/uL MPV 10.5 (7.5-11.0) fL Sodium 135 L (137-145) mmol/L Potassium 4.2 (3.5-5.1) mmol/L Chloride 109 H (98-107) mmol/L Carbon Dioxide 23 (22-30) mmol/L Anion Gap 7.8 (5-15) MEQ/L BUN 24 H (9-20) mg/dL Creatinine 1.76 H (0.66-1.25) mg/dL Estimated GFR 40.1 ML/MIN Glucose 125 H (74-106) mg/dL POC Glucometer (74 to 106) mg/dL Calcium 8.2 L (8.4-10.2) mg/dL Total Bilirubin 0.40 (0.2-1.3) mg/dL AST 27 (17-59) U/L ALT 18 (0-50) U/L Alkaline Phosphatase 52 (38-126) U/L Serum Total Protein 4.5 L (6.3-8.2) g/dL Albumin 2.1 L (3.5-5.0) g/dL ABO Group O Rh Factor POSITIVE Antibody Screen NEGATIVE (NEGATIVE) Crossmatch COMPATIBLE (COMPATIBLE) 09/27/22 09/27/22 Range/Units 06:24 06:49 WBC (4.0-10.5) x10^3/uL RBC (4.1-5.6) x10^6/uL Hgb (12.5-18.0) g/dL Hct (42-50) % MCV (78-100) fL MCH (26-32) pg MCHC (32-36) g/dL RDW (11.5-14.0) % Plt Count (150-450) x10^3/uL MPV (7.5-11.0) fL Sodium (137-145) mmol/L Potassium (3.5-5.1) mmol/L Chloride (98-107) mmol/L Carbon Dioxide (22-30) mmol/L Anion Gap (5-15) MEQ/L BUN (9-20) mg/dL Creatinine (0.66-1.25) mg/dL Estimated GFR ML/MIN Glucose (74-106) mg/dL POC Glucometer 124 H (74 to 106) mg/dL Calcium (8.4-10.2) mg/dL Total Bilirubin (0.2-1.3) mg/dL AST (17-59) U/L ALT (0-50) U/L Alkaline Phosphatase (38-126) U/L Serum Total Protein (6.3-8.2) g/dL Albumin (3.5-5.0) g/dL ABO Group Rh Factor Antibody Screen (NEGATIVE) Crossmatch COMPATIBLE (COMPATIBLE) Micro Results-Entire Visit: Microbiology 09/18/22 12:48 Blood Culture Gram Stain - Final Blood Not Reportable Blood Culture - Final NO GROWTH 09/18/22 12:35 Blood Culture Gram Stain - Final Blood Not Reportable Blood Culture - Final NO GROWTH 09/18/22 12:41 Urine Culture - Final Catherized <10K NORMAL SKIN MARTHA PROBABLE SKIN CONTAMINANT Accuchecks Date 09/27/22 Date 09/26/22 Date 09/26/22 Time 07:58 Time 17:39 Time 11:58 - Procedures and Test Procedures and Tests throughout Hospitalization: Therapy Orders & Screens 09/24/22 16:38 Respiratory Therapy Assessment ONCE Comment: Diagnosis: COVID-19 infection, anemia Discharge Exam General Appearance: no apparent distress, thin Neurologic Exam: alert, oriented x 3, cooperative Eye Exam: eyes nml inspection Ears, Nose, Throat Exam: moist mucous membranes Neck Exam: normal inspection Respiratory Exam: normal breath sounds, lungs clear, No crackles/rales, No rhonchi, No wheezing Cardiovascular Exam: regular rate/rhythm, normal heart sounds, No murmur Gastrointestinal/Abdomen Exam: soft, normal bowel sounds, No tenderness, No distention, No mass, No guarding, No rebound Extremity Exam: normal inspection, No pedal edema, No swelling Skin Exam: normal color, warm, dry, No rash Final Diagnosis/Problem List - Final Discharge Diagnosis/Problem (1) GI bleed Current Visit: Yes Status: Acute Assessment & Plan: Pt needs transferred out for further workup. Surgery advised sending pt to [place], but we are having difficulty getting a bed. He has been accepted at . Code(s): K92.2 - GASTROINTESTINAL HEMORRHAGE, UNSPECIFIED (2) Blood transfusion during current hospitalisation Current Visit: Yes Status: Acute Code(s): [id number] - (3) COVID-19 virus infection Current Visit: Yes Status: Resolved Code(s): U07.1 - COVID-19 (4) Hyperglycemia Current Visit: Yes Status: Chronic Assessment & Plan: BS labile, 65 to > 200. Code(s): R73.9 - HYPERGLYCEMIA, UNSPECIFIED (5) HTN (hypertension) Current Visit: No Status: Chronic Code(s): I10 - ESSENTIAL (PRIMARY) HYPERTENSION (6) Sarcoidosis Current Visit: No Status: Chronic Code(s): D86.9 - SARCOIDOSIS, UNSPECIFIED (7) Hx of malignant neoplasm of pancreas Current Visit: No Status: Chronic Code(s): Z85.07 - PERSONAL HISTORY OF MALIGNANT NEOPLASM OF PANCREAS (8) Diabetes mellitus type II, uncontrolled Current Visit: Yes Status: Chronic Code(s): [id number] - (9) Chronic renal disease Current Visit: Yes Status: Chronic Code(s): N18.9 - CHRONIC KIDNEY DISEASE, UNSPECIFIED - Discharge Disposition: Home, Self-Care Condition: Fair Prescriptions: No Action Amlodipine Besylate [Norvasc] 5 mg PO BID Lipase/Protease/Amylase [[place] Dr 6,000 Unit Capsule] 1 cap PO QID Glipizide 10 mg [Glucotrol 10 MG] 10 mg PO DAILY Levothyroxine Sodium 50 mcg PO DAILY Metformin HCl 500 mg [Glucophage 500 MG] 500 mg PO BIDWM Prednisone 10 mg [Deltasone 10 mg] 5 mg PO DAILY Albuterol 8 gm Mdi Hfa [Ventolin Hfa MDI] 2 puffs IH QID Follow up with: FALLON GARCIA [Primary Care Provider] -
[2022-09-27] MEDS: PROTONIX 40 MG IV IV SCH ×2 (09:18→22:16)
[2022-09-27] MEDS: NORVASC 5 MG PO SCH ×2 (09:19→22:17)
[2022-09-27] MEDS: SYNTHROID 50 MCG PO SCH (09:19)
[2022-09-27] MEDS: DELTASONE 5 MG PO SCH (09:19)
[2022-09-27 15:40] LABS: INR 1.04 (0.8-3.0); PROTIME 11.3 SECONDS (9.4-12.5)
[2022-09-27 17:28] LABS: Hematocrit 29.4 % (42-50); Hemoglobin 9.6 g/dL (12.5-18.0)
[2022-09-27] MEDS: HUMULIN R SQ PRN (22:18)
[2022-09-28 05:02] LABS: Hematocrit 24.9 % (42-50); Hemoglobin 8.5 g/dL (12.5-18.0); Mean Cell Volume 88.9 fL (78-100); Mean Corpuscular Hemoglobin 30.4 pg (26-32); Mean Corpuscular Hgb Concent. 34.1 g/dL (32-36); Mean Platelet Volume 10.4 fL (7.5-11.0); Platelet Count 191 x10^3/uL (150-450); Red Cell Distribution Width 15.1 % (11.5-14.0)
[2022-09-28 05:13] LABS: BILIRUBIN,TOTAL 0.6 mg/dL (0.2-1.3); Creatinine 1 1.62 mg/dL (0.66-1.25); EST GLOMERULAR FILTRATION RATE 44.1 ML/MIN; Total Protein 4.5 g/dL (6.3-8.2)
[2022-09-28] MEDS: ZENPEP DR 5,000 UNIT CAPSULE PO SCH ×4 (08:35→22:30)
[2022-09-28] MEDS: PROTONIX 40 MG IV IV SCH ×2 (08:35→22:30)
[2022-09-28] MEDS: DELTASONE 5 MG PO SCH (08:35)
[2022-09-28] MEDS: NORVASC 5 MG PO SCH (08:36)
[2022-09-28] MEDS: SYNTHROID 50 MCG PO SCH (08:36)
--- NOTE | 2022-09-28 08:38 | PCM.NOTE ---
Date and Time: 09/28/22 0836 Subjective Assessment: patient is eating breakfast, he denies any pain. no bowel movements overnight so no visible bleeding. he has no complaints Objective Exam General Appearance: no apparent distress Neurologic Exam: alert, oriented x 3 Respiratory Exam: normal breath sounds, lungs clear, No respiratory distress Cardiovascular Exam: regular rate/rhythm, normal heart sounds Gastrointestinal/Abdomen Exam: soft, No tenderness, No mass OBJECTIVE DATA Vital Signs: Vital Signs - 24 hr Temp Pulse Resp BP Pulse Ox 09/28/22 07:04 97.8 F 74 16 111/68 96 09/28/22 04:00 98.1 F 77 16 112/68 96 09/27/22 23:25 98.1 F 83 17 112/68 96 09/27/22 20:00 98.2 F 83 16 133/85 95 09/27/22 16:00 98.7 F 81 16 114/75 96 09/27/22 12:00 97.6 F 78 16 98/61 97 Pain Assessment - Last Documented Pain Intensity 0 Pain Scale Used 0-10 Pain Scale Intake and Output: Intake & Output 09/25/22 09/26/22 09/27/22 09/28/22 11:59 11:59 11:59 11:59 Intake Total 500 1440 740 740 Output Total 1850 6515 955 0830 Balance -1350 -410 -10 -385 Weight 57.3 kg 57.6 kg 57.5 kg 57.4 kg Lab Results: Lab Results-Last 24 Hours 09/27/22 09/27/22 09/27/22 Range/Units 05:00 11:27 16:42 WBC (4.0-10.5) x10^3/uL RBC (4.1-5.6) x10^6/uL Hgb (12.5-18.0) g/dL Hct (42-50) % MCV (78-100) fL MCH (26-32) pg MCHC (32-36) g/dL RDW (11.5-14.0) % Plt Count (150-450) x10^3/uL MPV (7.5-11.0) fL PT 11.3 (9.4-12.5) SECONDS INR 1.04 (0.8-3.0) Sodium (137-145) mmol/L Potassium (3.5-5.1) mmol/L Chloride (98-107) mmol/L Carbon Dioxide (22-30) mmol/L Anion Gap (5-15) MEQ/L BUN (9-20) mg/dL Creatinine (0.66-1.25) mg/dL Estimated GFR ML/MIN Glucose (74-106) mg/dL POC Glucometer 213 H 310 H (74 to 106) mg/dL Calcium (8.4-10.2) mg/dL Total Bilirubin (0.2-1.3) mg/dL AST (17-59) U/L ALT (0-50) U/L Alkaline Phosphatase (38-126) U/L Serum Total Protein (6.3-8.2) g/dL Albumin (3.5-5.0) g/dL 09/27/22 09/27/22 09/28/22 Range/Units 17:25 21:22 04:40 WBC 7.0 (4.0-10.5) x10^3/uL RBC 2.80 L (4.1-5.6) x10^6/uL Hgb 9.6 L D 8.5 L (12.5-18.0) g/dL Hct 29.4 L 24.9 L (42-50) % MCV 88.9 (78-100) fL MCH 30.4 (26-32) pg MCHC 34.1 (32-36) g/dL RDW 15.1 H (11.5-14.0) % Plt Count 191 (150-450) x10^3/uL MPV 10.4 (7.5-11.0) fL PT (9.4-12.5) SECONDS INR (0.8-3.0) Sodium (137-145) mmol/L Potassium (3.5-5.1) mmol/L Chloride (98-107) mmol/L Carbon Dioxide (22-30) mmol/L Anion Gap (5-15) MEQ/L BUN (9-20) mg/dL Creatinine (0.66-1.25) mg/dL Estimated GFR ML/MIN Glucose (74-106) mg/dL POC Glucometer 405 H (74 to 106) mg/dL Calcium (8.4-10.2) mg/dL Total Bilirubin (0.2-1.3) mg/dL AST (17-59) U/L ALT (0-50) U/L Alkaline Phosphatase (38-126) U/L Serum Total Protein (6.3-8.2) g/dL Albumin (3.5-5.0) g/dL 09/28/22 09/28/22 Range/Units 04:40 06:51 WBC (4.0-10.5) x10^3/uL RBC (4.1-5.6) x10^6/uL Hgb (12.5-18.0) g/dL Hct (42-50) % MCV (78-100) fL MCH (26-32) pg MCHC (32-36) g/dL RDW (11.5-14.0) % Plt Count (150-450) x10^3/uL MPV (7.5-11.0) fL PT (9.4-12.5) SECONDS INR (0.8-3.0) Sodium 134 L (137-145) mmol/L Potassium 4.0 (3.5-5.1) mmol/L Chloride 108 H (98-107) mmol/L Carbon Dioxide 21 L (22-30) mmol/L Anion Gap 10.0 (5-15) MEQ/L BUN 25 H (9-20) mg/dL Creatinine 1.62 H (0.66-1.25) mg/dL Estimated GFR 44.1 ML/MIN Glucose 147 H (74-106) mg/dL POC Glucometer 150 H (74 to 106) mg/dL Calcium 8.0 L (8.4-10.2) mg/dL Total Bilirubin 0.60 (0.2-1.3) mg/dL AST 29 (17-59) U/L ALT 18 (0-50) U/L Alkaline Phosphatase 55 (38-126) U/L Serum Total Protein 4.5 L (6.3-8.2) g/dL Albumin 2.0 L (3.5-5.0) g/dL Radiology Exams: Radiology Procedures Category Date Time Status GI BLEED [NUCMED] Routine Exams 09/28/22 09:30 Ordered Multi-Disciplinary Progress Notes: Multi-Disciplinary Progress Notes 09/27/22 08:59 Case Management Note by Lissette Mcgraw FURTHER CASE MANAGEMENT/DC DISCUSSIONS ON HOLD AT THIS TIME PATIENT IS AWAITING BED AT HIGHER LEVEL OF CARE Initialized on 09/27/22 08:59 - END OF NOTE Assessment/Plan (1) GI bleed Current Visit: Yes Status: Acute Qualifiers: GI bleed type/associated pathology: unspecified gastrointestinal hemorrhage type Qualified Code(s): K92.2 - Gastrointestinal hemorrhage, unspecified Assessment & Plan: patient has received multiple transfusions, no source of bleeding on EGD or colonoscopy. he will have a tagged rbc scan this am and awaiting transfer to [facility], has been accepted and awaiting bed for the last 2 days. Code(s): K92.2 - GASTROINTESTINAL HEMORRHAGE, UNSPECIFIED (2) COVID-19 virus infection Current Visit: Yes Status: Resolved Code(s): U07.1 - COVID-19 (3) Symptomatic anemia Current Visit: Yes Status: Acute Code(s): D64.9 - ANEMIA, UNSPECIFIED (4) Diabetes mellitus type II, uncontrolled Current Visit: Yes Status: Chronic Qualifiers: Glycemic state: with hyperglycemia Qualified Code(s): E11.65 - Type 2 di abetes mellitus with hyperglycemia Code(s): [id number] -
[2022-09-28] MEDS: HUMULIN R SQ PRN ×2 (12:39→16:45)
[2022-09-29] MEDS: HUMULIN R SQ PRN ×4 (00:28→22:23)
--- NOTE | 2022-09-29 02:55 | XRAY ---
Indication: GI bleed. Anemia. Red and tarry-like stools. Comparison: None Patient received 23.2 mCi technetium 99 tagged RBCs. Flow images of the abdomen/pelvis obtained in the anterior plane. There is mild low level accumulation of radiotracer throughout the stomach. A more focal oval accumulation of radiotracer seen in the descending duodenum. No other abnormal accumulation of radiotracer in the GI tract. Impression: Low level radiotracer accumulation throughout stomach, possible erosive gastritis. A more focal oval radiotracer accumulation in the descending duodenum favoring GI bleed versus giant ulcer.
[2022-09-29 05:41] LABS: Hemoglobin 8.7 g/dL (12.5-18.0); Mean Corpuscular Hemoglobin 30.1 pg (26-32); Mean Corpuscular Hgb Concent. 33.5 g/dL (32-36); Mean Platelet Volume 10.3 fL (7.5-11.0); Platelet Count 205 x10^3/uL (150-450); Red Blood Count 2.89 x10^6/uL (4.1-5.6); Red Cell Distribution Width 15.1 % (11.5-14.0); White Blood Count 8.2 x10^3/uL (4.0-10.5)
[2022-09-29 05:55] LABS: ALBUMIN 2.1 g/dL (3.5-5.0); ANION GAP 9.6 MEQ/L (5-15); BILIRUBIN,TOTAL 0.4 mg/dL (0.2-1.3); Calcium 8.1 mg/dL (8.4-10.2); Creatinine 1 1.58 mg/dL (0.66-1.25); EST GLOMERULAR FILTRATION RATE 45.4 ML/MIN; Total Protein 4.7 g/dL (6.3-8.2)
[2022-09-29] MEDS: ZENPEP DR 5,000 UNIT CAPSULE PO SCH ×4 (07:44→22:23)
--- NOTE | 2022-09-29 08:50 | PCM.NOTE ---
Date and Time: 09/29/22 0848 Subjective Assessment: Patient is feeling much better. Patient denies any blood in his stool. Patient hemoglobin is stable. Patient is eating well. Patient is awaiting transfer at [facility]. - Review of Systems Constitutional: No Fever, No Chills Eyes: No Symptoms Ears, Nose, & Throat: No Symptoms Respiratory: No Cough, No Short Of Breath Cardiac: No Chest Pain, No Edema, No Syncope Abdominal/Gastrointestinal: No Abdominal Pain, No Nausea, No Vomiting, No Diarrhea Genitourinary Symptoms: No Dysuria Musculoskeletal: No Back Pain, No Neck Pain Skin: No Rash Neurological: No Dizziness, No Focal Weakness, No Sensory Changes Psychological: No Symptoms Endocrine: No Symptoms Hematologic/Lymphatic: No Symptoms Immunological/Allergic: No Symptoms Objective Exam General Appearance: no apparent distress, alert Neurologic Exam: alert, oriented x 3, cooperative, normal mood/affect, nml cerebellar function, sensation nml, No motor deficits Skin Exam: normal color, warm, dry Eye Exam: PERRL, EOMI, eyes nml inspection Ears, Nose, Throat Exam: normal ENT inspection, pharynx normal, moist mucous membranes Neck Exam: normal inspection, non-tender, supple, full range of motion Respiratory Exam: normal breath sounds, lungs clear, No respiratory distress Cardiovascular Exam: regular rate/rhythm, normal heart sounds Gastrointestinal/Abdomen Exam: soft, No tenderness, No mass Extremity Exam: normal inspection, normal range of motion Back Exam: normal inspection, normal range of motion, No CVA tenderness, No vertebral tenderness Male Genitalia Exam: deferred Rectal Exam: deferred OBJECTIVE DATA Vital Signs: Vital Signs - 24 hr Temp Pulse Resp BP Pulse Ox 09/29/22 07:53 99.1 F 76 16 108/68 95 09/29/22 04:00 97.9 F 83 17 109/72 97 09/29/22 03:00 97.9 F 83 17 109/72 97 09/28/22 23:00 97.7 F 72 13 97/72 96 09/28/22 19:55 97.5 F 78 16 107/64 97 09/28/22 15:34 98.5 F 84 20 104/59 94 L 09/28/22 12:26 98.0 F 75 17 114/73 97 Pain Assessment - Last Documented Pain Intensity 0 Pain Scale Used 0-10 Pain Scale Intake and Output: Intake & Output 09/26/22 09/27/22 09/28/22 09/29/22 11:59 11:59 11:59 11:59 Intake Total 7784 705 8913 840 Output Total 9593 815 1634 1650 Balance -410 -10 -25 -810 Weight 57.6 kg 57.5 kg 57.4 kg 57.7 kg Lab Results: Lab Results-Last 24 Hours 09/24/22 09/28/22 09/28/22 Range/Units 15:18 12:35 15:18 WBC (4.0-10.5) x10^3/uL RBC (4.1-5.6) x10^6/uL Hgb (12.5-18.0) g/dL Hct (42-50) % MCV (78-100) fL MCH (26-32) pg MCHC (32-36) g/dL RDW (11.5-14.0) % Plt Count (150-450) x10^3/uL MPV (7.5-11.0) fL Sodium (137-145) mmol/L Potassium (3.5-5.1) mmol/L Chloride (98-107) mmol/L Carbon Dioxide (22-30) mmol/L Anion Gap (5-15) MEQ/L BUN (9-20) mg/dL Creatinine (0.66-1.25) mg/dL Estimated GFR ML/MIN Glucose (74-106) mg/dL POC Glucometer 179 H 196 H (74 to 106) mg/dL Calcium (8.4-10.2) mg/dL Total Bilirubin (0.2-1.3) mg/dL AST (17-59) U/L ALT (0-50) U/L Alkaline Phosphatase (38-126) U/L Serum Total Protein (6.3-8.2) g/dL Albumin (3.5-5.0) g/dL Surg PTH Specimen SEE COMMENTS 09/28/22 09/29/22 09/29/22 Range/Units 20:26 05:12 05:12 WBC 8.2 (4.0-10.5) x10^3/uL RBC 2.89 L (4.1-5.6) x10^6/uL Hgb 8.7 L (12.5-18.0) g/dL Hct 26.0 L (42-50) % MCV 90.0 (78-100) fL MCH 30.1 (26-32) pg MCHC 33.5 (32-36) g/dL RDW 15.1 H (11.5-14.0) % Plt Count 205 (150-450) x10^3/uL MPV 10.3 (7.5-11.0) fL Sodium 136 L (137-145) mmol/L Potassium 4.0 (3.5-5.1) mmol/L Chloride 109 H (98-107) mmol/L Carbon Dioxide 21 L (22-30) mmol/L Anion Gap 9.6 (5-15) MEQ/L BUN 28 H (9-20) mg/dL Creatinine 1.58 H (0.66-1.25) mg/dL Estimated GFR 45.4 ML/MIN Glucose 151 H (74-106) mg/dL POC Glucometer 196 H (74 to 106) mg/dL Calcium 8.1 L (8.4-10.2) mg/dL Total Bilirubin 0.40 (0.2-1.3) mg/dL AST 30 (17-59) U/L ALT 19 (0-50) U/L Alkaline Phosphatase 72 (38-126) U/L Serum Total Protein 4.7 L (6.3-8.2) g/dL Albumin 2.1 L (3.5-5.0) g/dL Surg PTH Specimen 09/29/22 Range/Units 07:35 WBC (4.0-10.5) x10^3/uL RBC (4.1-5.6) x10^6/uL Hgb (12.5-18.0) g/dL Hct (42-50) % MCV (78-100) fL MCH (26-32) pg MCHC (32-36) g/dL RDW (11.5-14.0) % Plt Count (150-450) x10^3/uL MPV (7.5-11.0) fL Sodium (137-145) mmol/L Potassium (3.5-5.1) mmol/L Chloride (98-107) mmol/L Carbon Dioxide (22-30) mmol/L Anion Gap (5-15) MEQ/L BUN (9-20) mg/dL Creatinine (0.66-1.25) mg/dL Estimated GFR ML/MIN Glucose (74-106) mg/dL POC Glucometer 132 H (74 to 106) mg/dL Calcium (8.4-10.2) mg/dL Total Bilirubin (0.2-1.3) mg/dL AST (17-59) U/L ALT (0-50) U/L Alkaline Phosphatase (38-126) U/L Serum Total Protein (6.3-8.2) g/dL Albumin (3.5-5.0) g/dL Surg PTH Specimen Radiology Exams: Radiology Procedures Category Date Time Status GI BLEED [NUCMED] Routine Exams 09/28/22 09:30 Completed Multi-Disciplinary Progress Notes: Multi-Disciplinary Progress Notes 09/28/22 09:50 Case Management Note by Lissette Mcgraw S/W PATIENT-HE CONTINUES TO DENY ANY NEW NEEDS AT HOME IF HE WERE TO DC HOME FROM [facility]. HE PLANS TO RETURN HOME TO HIS PLF. HE HAS DECLINED [facility] SEVERAL TIMES. HE REPORTS HE HAS FAMILY/FRIENDS THAT CAN ASSIST HIM IF NEEDED Initialized on 09/28/22 09:50 - END OF NOTE Assessment/Plan (1) GI bleed Current Visit: Yes Status: Resolved Qualifiers: GI bleed type/associated pathology: unspecified gastrointestinal hemorrhage type Qualified Code(s): K92.2 - Gastrointestinal hemorrhage, unspecified Assessment & Plan: Chief Complaint Diagnosis COVID-19 infection, anemia Allergies Allergy/AdvReac Type Severity Reaction Status Date / Time No Known Drug Allergies Allergy Verified 09/18/22 12:27 Vital Signs (Last 24 hours) Temp Pulse Resp BP Pulse Ox 09/29/22 07:53 99.1 F 76 16 108/68 95 09/29/22 04:00 97.9 F 83 17 109/72 97 09/29/22 03:00 97.9 F 83 17 109/72 97 09/28/22 23:00 97.7 F 72 13 97/72 96 09/28/22 19:55 97.5 F 78 16 107/64 97 09/28/22 15:34 98.5 F 84 20 104/59 94 L 09/28/22 12:26 98.0 F 75 17 114/73 97 Home Medications Medication Instructions Recorded Confirmed Last Taken Type Albuterol 8 gm Mdi Hfa 2 puffs IH QID 09/18/22 09/18/22 Unknown History [Ventolin Hfa MDI] Amlodipine Besylate [Norvasc] 5 mg PO BID 09/18/22 09/18/22 09/17/22 History Glipizide 10 mg [Glucotrol 10 10 mg PO DAILY 09/18/22 09/18/22 09/17/22 History MG] Levothyroxine Sodium 50 mcg PO DAILY 09/18/22 09/18/22 09/17/22 History Lipase/Protease/Amylase [Juarez Almendarez 1 cap PO QID 09/18/22 09/18/22 09/17/22 History 6,000 Unit Capsule] Metformin HCl 500 mg 500 mg PO BIDWM 09/18/22 09/18/22 09/17/22 History [Glucophage 500 MG] Prednisone 10 mg [Deltasone 10 5 mg PO DAILY 09/18/22 09/18/22 09/18/22 History mg] Current Medications Generic Name Dose Route Start Last Admin Trade Name Freq PRN Reason Stop Dose Admin Acetaminophen 650 mg 09/18/22 15:16 09/27/22 22:17 Acetaminophen 325 Mg Tablet PO 10/18/22 15:15 650 mg Q4H PRN PRN Administration PAIN, FEVER, HEADACHE Amlodipine Besylate 5 mg 09/18/22 22:00 09/28/22 08:36 Amlodipine Besylate 5 Mg Tablet PO 10/18/22 21:59 5 mg BID THERESE Administration Lipase/Protease/Amylase 1 each 09/18/22 17:00 09/29/22 07:44 Lipase/Protease/Amylase 1 Each Capsule. PO 10/18/22 16:59 1 each WMHS THEREES Administration Insulin Human Regular 0 unit 09/18/22 15:16 09/29/22 00:28 Insulin Regular, Human 1 Unit SQ 10/18/22 15:15 3 unit UD PRN Administration HYPERGLYCEMIA Levothyroxine Sodium 50 mcg 09/18/22 18:00 09/28/22 08:36 Levothyroxine Sodium 50 Mcg Tablet PO 10/18/22 17:59 50 mcg DAILY THERESE Administration Ondansetron HCl 4 mg 09/18/22 15:16 Ondansetron Hcl 4 Mg/2 Ml Vial IV 10/18/22 15:15 Q6H PRN PRN NAUSEA/VOMITING Pantoprazole Sodium 40 mg 09/25/22 09:15 09/28/22 22:30 Pantoprazole 40 Mg Vial IV 10/25/22 09:14 40 mg Q12H THERESE Administration Prednisone 5 mg 09/19/22 10:00 09/28/22 08:35 Prednisone 5 Mg Tablet PO 10/19/22 09:59 5 mg DAILY THERESE Administration Discontinued Medications Generic Name Dose Route Start Last Admin Trade Name Freq PRN Reason Stop Dose Admin Albuterol Sulfate 2 puff 09/18/22 19:00 Albuterol Common Canister Inhaler IH 10/18/22 18:59 QIDRT THERESE Albuterol/Ipratropium Confirm 09/24/22 16:17 Ipratropium/Albuterol Sulfate 3 Ml Ampul.Neb Administered 09/24/22 16:18 Dose 3 ml IH .STK-MED ONE Albuterol/Ipratropium 3 ml 09/24/22 16:20 09/24/22 16:20 Ipratropium/Albuterol Sulfate 3 Ml Ampul.Neb IH 09/24/22 16:21 3 ml STAT ONE Administration Furosemide 20 mg 09/18/22 17:00 Furosemide 20 Mg/Vial IV 09/18/22 17:01 BETWEEN UNITS ONE Furosemide 20 mg 09/18/22 17:01 09/18/22 17:08 Furosemide 20 Mg/Vial IV 09/19/22 10:00 20 mg BETWEEN UNITS PRN Administration swelling Sodium Chloride 1,000 mls @ 100 mls/hr 09/18/22 12:30 09/18/22 12:55 Sodium Chloride 0.9% 1000 Ml IV 10/18/22 12:29 100 mls/hr .Q10H THERESE Administration Sodium Chloride Confirm 09/18/22 12:43 Sodium Chloride 0.9% 1000 Ml Administered 09/18/22 12:44 Dose 1,000 mls @ ud .ROUTE .STK-MED ONE Sodium Chloride 1,000 mls @ 100 mls/hr 09/18/22 15:16 09/21/22 03:16 Sodium Chloride 0.9% 1000 Ml IV 10/18/22 15:15 50 mls/hr .Q10H THERESE Administration Pantoprazole Sodium 80 mg/ 500 mls @ 50 mls/hr 09/19/22 08:00 09/23/22 03:35 Sodium Chloride IV 10/19/22 07:59 50 ml/hr .Q10H THERESE 50 mls/hr Administration Sodium Chloride 500 mls @ 50 mls/hr 09/24/22 10:00 09/24/22 10:16 Sodium Chloride 0.9% 500 Ml IV 09/24/22 16:00 50 mls/hr .Q10H THERESE Administration Lactated Ringer's Confirm 09/24/22 14:52 Lactated Ringers Administered 09/24/22 14:53 Dose 1,000 mls @ ud IV .STK-MED ONE Lactated Ringer's 1,000 mls @ 500 mls/hr 09/25/22 08:54 09/25/22 10:35 Lactated Ringers IV 09/25/22 10:53 500 mls/hr .Q2H ONE Administration Sodium Chloride 500 mls @ 50 mls/hr 09/27/22 08:00 09/27/22 08:11 Sodium Chloride 0.9% 500 Ml IV 10/27/22 07:59 50 mls/hr .Q10H THERESE Administration Insulin Human Regular 15 unit 09/18/22 13:42 09/18/22 14:13 Insulin Regular, Human 1 Unit IV 09/18/22 13:43 15 unit STAT ONE Administration Insulin Human Regular Confirm 09/18/22 14:13 Insulin Regular, Human 1 Unit Administered 09/18/22 14:14 Dose 15 unit .ROUTE .STK-MED ONE Lidocaine HCl Confirm 09/20/22 11:17 Lidocaine - Mpf 2% 5 Ml Vial Administered 09/20/22 11:18 Dose 5 ml .ROUTE .STK-MED ONE Midazolam HCl Confirm 09/20/22 11:17 Midazolam Hcl 2 Mg/2 Ml Vial Administered 09/20/22 11:18 Dose 2 mg .ROUTE .STK-MED ONE Pantoprazole Sodium 40 mg 09/18/22 12:20 09/18/22 12:57 Pantoprazole 40 Mg Vial IV 09/18/22 12:21 40 mg STAT ONE Administration Pantoprazole Sodium Confirm 09/18/22 12:43 Pantoprazole 40 Mg Vial Administered 09/18/22 12:44 Dose 40 mg IV .STK-MED ONE Pantoprazole Sodium 40 mg 09/21/22 11:18 09/21/22 21:00 Pantoprazole 40 Mg Vial IV 09/21/22 22:01 Not Given BID THERESE Pantoprazole Sodium 40 mg 09/23/22 10:00 09/24/22 09:36 Pantoprazole 40 Mg Vial IV 10/23/22 09:59 40 mg DAILY THERESE Administration Polyethylene Glycol/Electrolytes 4,000 ml 09/23/22 14:00 09/23/22 14:31 Sod Sulf/Sod/Nahco3/Kcl/Peg's 4000 Ml Bottle PO 09/23/22 14:01 4,000 ml ONCE@1400 ONE Administration Propofol Confirm 09/20/22 11:17 Propofol 10 Mg/Ml 20ml Vial Administered 09/20/22 11:18 Dose 200 mg IV .STK-MED ONE Propofol Confirm 09/24/22 16:13 Propofol 10 Mg/Ml 20ml Vial Administered 09/24/22 16:14 Dose 400 mg IV .STK-MED ONE Intake & Output (Last 24 hours) 09/26/22 09/27/22 09/28/22 09/29/22 11:59 11:59 11:59 11:59 Intake Total 5083 477 7776 840 Output Total 4201 253 4670 1650 Balance -410 -10 -25 -810 Weight 57.6 kg 57.5 kg 57.4 kg 57.7 kg Laboratory Results (Last 24 hours) 09/29/22 09/29/22 09/29/22 07:35 05:12 05:12 WBC 8.2 RBC 2.89 L Hgb 8.7 L Hct 26.0 L MCV 90.0 MCH 30.1 MCHC 33.5 RDW 15.1 H Plt Count 205 MPV 10.3 Sodium 136 L Potassium 4.0 Chloride 109 H Carbon Dioxide 21 L Anion Gap 9.6 BUN 28 H Creatinine 1.58 H Estimated GFR 45.4 Glucose 151 H POC Glucometer 132 H Calcium 8.1 L Total Bilirubin 0.40 AST 30 ALT 19 Alkaline Phosphatase 72 Serum Total Protein 4.7 L Albumin 2.1 L Surg PTH Specimen 09/28/22 09/28/22 09/28/22 20:26 15:18 12:35 WBC RBC Hgb Hct MCV MCH MCHC RDW Plt Count MPV Sodium Potassium Chloride Carbon Dioxide Anion Gap BUN Creatinine Estimated GFR Glucose POC Glucometer 196 H 196 H 179 H Calcium Total Bilirubin AST ALT Alkaline Phosphatase Serum Total Protein Albumin Surg PTH Specimen 09/24/22 15:18 WBC RBC Hgb Hct MCV MCH MCHC RDW Plt Count MPV Sodium Potassium Chloride Carbon Dioxide Anion Gap BUN Creatinine Estimated GFR Glucose POC Glucometer Calcium Total Bilirubin AST ALT Alkaline Phosphatase Serum Total Protein Albumin Surg PTH Specimen SEE COMMENTS Orders (Last 24 hours) Category Date Time Status GI BLEED [NUCMED] Routine Exams 09/28/22 09:30 Completed CBC AM.LAB Lab 09/29/22 05:12 Completed CBC AM.LAB Lab 09/30/22 04:00 Ordered CMP AM.LAB Lab 09/29/22 05:12 Completed CMP AM.LAB Lab 09/30/22 04:00 Ordered POCT GLUCOSE Stat Lab 09/28/22 12:35 Completed POCT GLUCOSE Stat Lab 09/28/22 15:18 Completed POCT GLUCOSE Stat Lab 09/28/22 20:26 Completed POCT GLUCOSE Stat Lab 09/29/22 07:35 Completed Patient Care Notes (Last 24 hours) 09/28/22 17:07 Nursing Note by Jessenia Babb CALLED AND UPDATED NELLI AT [facility] OF GI BLEED NUCLEAR MEDICINE IMPRESSION AND MOST RECENT VITALS. Initialized on 09/28/22 17:07 - END OF NOTE 09/28/22 14:20 Nursing Note by Jessenia Babb RECEIVED ORDER FROM DR. ARAYA TO D/C [facility] PER PATIENT REQUEST. Initialized on 09/28/22 14:20 - END OF NOTE 09/28/22 12:31 Nursing Note by Jessenia Babb PATIENT BACK TO ROOM FROM RADIOLOGY AT THIS TIME. Initialized on 09/28/22 12:31 - END OF NOTE 09/28/22 11:34 Nursing Note by Jessenia Babb UNABLE TO OBTAIN VITALS AND POCT ACCU CHECKS AT THIS TIME DUE TO PATIENT BEING DOWN IN RADIOLOGY FOR NUC MED TESTING. WILL OBTAIN ONCE PATIENT RETURNS TO ROOM. Initialized on 09/28/22 11:34 - END OF NOTE 09/28/22 09:50 Case Management Note by Lissette Mcgraw S/W PATIENT-HE CONTINUES TO DENY ANY NEW NEEDS AT HOME IF HE WERE TO DC HOME FROM [facility]. HE PLANS TO RETURN HOME TO HIS PLF. HE HAS DECLINED C SEVERAL TIMES. HE REPORTS HE HAS FAMILY/FRIENDS THAT CAN ASSIST HIM IF NEEDED Initialized on 09/28/22 09:50 - END OF NOTE 09/28/22 09:28 Nursing Note by Jessenia Babb Spoke to Nelli at Transfer Call Center for [facility] at this time. Gave patient update. [facility] at this time still does not have room assignment. Nelli is requesting that we call and update her with results from Nuc Med testing once received. Nelli states she will call us back once she is notified of room assignment. Initialized on 09/28/22 09:28 - END OF NOTE Code(s): K92.2 - GASTROINTESTINAL HEMORRHAGE, UNSPECIFIED (2) Blood transfusion during current hospitalisation Current Visit: Yes Status: Acute Code(s): YAQ6398 - (3) Symptomatic anemia Current Visit: Yes Status: Acute Code(s): D64.9 - ANEMIA, UNSPECIFIED (4) Chronic renal disease Current Visit: Yes Status: Chronic Code(s): N18.9 - CHRONIC KIDNEY DISEASE, UNSPECIFIED (5) COVID-19 virus infection Current Visit: Yes Status: Resolved Code(s): U07.1 - COVID-19 (6) HTN (hypertension) Current Visit: No Status: Chronic Qualifiers: Hypertension type: primary hypertension Qualified Code(s): I10 - Essential (primary) hypertension Code(s): I10 - ESSENTIAL (PRIMARY) HYPERTENSION
[2022-09-29] MEDS: PROTONIX 40 MG IV IV SCH ×2 (09:33→22:23)
[2022-09-29] MEDS: DELTASONE 5 MG PO SCH (09:34)
[2022-09-29] MEDS: NORVASC 5 MG PO SCH ×2 (09:34→22:24)
[2022-09-29] MEDS: SYNTHROID 50 MCG PO SCH (09:34)
[2022-09-30 05:58] LABS: Hematocrit 26.9 % (42-50); Hemoglobin 8.8 g/dL (12.5-18.0); Mean Cell Volume 90.9 fL (78-100); Mean Corpuscular Hemoglobin 29.7 pg (26-32); Mean Corpuscular Hgb Concent. 32.7 g/dL (32-36); Mean Platelet Volume 10.1 fL (7.5-11.0); Platelet Count 216 x10^3/uL (150-450); Red Blood Count 2.96 x10^6/uL (4.1-5.6); Red Cell Distribution Width 15.2 % (11.5-14.0); White Blood Count 7.5 x10^3/uL (4.0-10.5)
[2022-09-30 06:06] LABS: ALBUMIN 2.4 g/dL (3.5-5.0); BILIRUBIN,TOTAL 0.5 mg/dL (0.2-1.3); Creatinine 1 1.41 mg/dL (0.66-1.25); EST GLOMERULAR FILTRATION RATE 51.8 ML/MIN; Potassium 3.5 mmol/L (3.5-5.1); Total Protein 5.2 g/dL (6.3-8.2)
[2022-09-30] MEDS: SYNTHROID 50 MCG PO SCH (08:30)
[2022-09-30] MEDS: ZENPEP DR 5,000 UNIT CAPSULE PO SCH ×2 (08:30→12:05)
[2022-09-30] MEDS: DELTASONE 5 MG PO SCH (08:31)
[2022-09-30] MEDS: NORVASC 5 MG PO SCH (08:31)
[2022-09-30] MEDS: PROTONIX 40 MG IV IV SCH (10:17)
[2022-09-30 11:45] VITALS: BP 133/68; PULSE 89; O2SAT 98
[2022-09-30] MEDS: HUMULIN R SQ PRN (12:05)
--- NOTE | 2022-09-30 12:53 | PCM.DS ---
Discharge Summary Date of Admission: 09/18/22 15:05 Admitting Physician: ISRAEL CORDERO Consults: Consults on Case 09/19/22 12:07 Consult Surgery ROUTINE Primary Care Provider: FALLON GARCIA Allergies Allergies No Known Drug Allergies Allergy (Verified 09/18/22 12:27) Hospital Summary - Hospital Course Hospital Course: Chief Complaint Diagnosis COVID-19 infection, anemia Allergies Allergy/AdvReac Type Severity Reaction Status Date / Time No Known Drug Allergies Allergy Verified 09/18/22 12:27 Vital Signs (Last 24 hours) Temp Pulse Resp BP Pulse Ox 09/30/22 11:00 97.9 F 89 16 133/68 98 09/30/22 07:00 98.0 F 75 16 109/71 97 09/30/22 03:00 81 23 95 09/29/22 23:00 98.5 F 85 18 120/72 97 09/29/22 19:00 97.8 F 88 15 105/72 96 09/29/22 15:00 98.7 F 89 16 107/69 96 Home Medications Medication Instructions Recorded Confirmed Last Taken Type Albuterol 8 gm Mdi Hfa 2 puffs IH QID 09/18/22 09/18/22 Unknown History [Ventolin Hfa MDI] Amlodipine Besylate [Norvasc] 5 mg PO BID 09/18/22 09/18/22 09/17/22 History Glipizide 10 mg [Glucotrol 10 10 mg PO DAILY 09/18/22 09/18/22 09/17/22 History MG] Levothyroxine Sodium 50 mcg PO DAILY 09/18/22 09/18/22 09/17/22 History Lipase/Protease/Amylase [Juarez Almendarez 1 cap PO QID 09/18/22 09/18/22 09/17/22 History 6,000 Unit Capsule] Metformin HCl 500 mg 500 mg PO BIDWM 09/18/22 09/18/22 09/17/22 History [Glucophage 500 MG] Prednisone 10 mg [Deltasone 10 5 mg PO DAILY 09/18/22 09/18/22 09/18/22 History mg] Current Medications Generic Name Dose Route Start Last Admin Trade Name Freq PRN Reason Stop Dose Admin Acetaminophen 650 mg 09/18/22 15:16 09/27/22 22:17 Acetaminophen 325 Mg Tablet PO 10/18/22 15:15 650 mg Q4H PRN PRN Administration PAIN, FEVER, HEADACHE Amlodipine Besylate 5 mg 09/18/22 22:00 09/30/22 08:31 Amlodipine Besylate 5 Mg Tablet PO 10/18/22 21:59 5 mg BID THERESE Administration Lipase/Protease/Amylase 1 each 09/18/22 17:00 09/30/22 12:05 Lipase/Protease/Amylase 1 Each Capsule.Dr PO 10/18/22 16:59 1 each WMHS THERESE Administration Insulin Human Regular 0 unit 09/18/22 15:16 09/30/22 12:05 Insulin Regular, Human 1 Unit SQ 10/18/22 15:15 3 unit UD PRN Administration HYPERGLYCEMIA Levothyroxine Sodium 50 mcg 09/18/22 18:00 09/30/22 08:30 Levothyroxine Sodium 50 Mcg Tablet PO 10/18/22 17:59 50 mcg DAILY THERESE Administration Ondansetron HCl 4 mg 09/18/22 15:16 Ondansetron Hcl 4 Mg/2 Ml Vial IV 10/18/22 15:15 Q6H PRN PRN NAUSEA/VOMITING Pantoprazole Sodium 40 mg 09/25/22 09:15 09/30/22 10:17 Pantoprazole 40 Mg Vial IV 10/25/22 09:14 40 mg Q12H THERESE Administration Prednisone 5 mg 09/19/22 10:00 09/30/22 08:31 Prednisone 5 Mg Tablet PO 10/19/22 09:59 5 mg DAILY THERESE Administration Discontinued Medications Generic Name Dose Route Start Last Admin Trade Name Freq PRN Reason Stop Dose Admin Albuterol Sulfate 2 puff 09/18/22 19:00 Albuterol Common Canister Inhaler IH 10/18/22 18:59 QIDRT THERESE Albuterol/Ipratropium Confirm 09/24/22 16:17 Ipratropium/Albuterol Sulfate 3 Ml Ampul.Neb Administered 09/24/22 16:18 Dose 3 ml IH .STK-MED ONE Albuterol/Ipratropium 3 ml 09/24/22 16:20 09/24/22 16:20 Ipratropium/Albuterol Sulfate 3 Ml Ampul.Neb IH 09/24/22 16:21 3 ml STAT ONE Administration Furosemide 20 mg 09/18/22 17:00 Furosemide 20 Mg/Vial IV 09/18/22 17:01 BETWEEN UNITS ONE Furosemide 20 mg 09/18/22 17:01 09/18/22 17:08 Furosemide 20 Mg/Vial IV 09/19/22 10:00 20 mg BETWEEN UNITS PRN Administration swelling Sodium Chloride 1,000 mls @ 100 mls/hr 09/18/22 12:30 09/18/22 12:55 Sodium Chloride 0.9% 1000 Ml IV 10/18/22 12:29 100 mls/hr .Q10H THERESE Administration Sodium Chloride Confirm 09/18/22 12:43 Sodium Chloride 0.9% 1000 Ml Administered 09/18/22 12:44 Dose 1,000 mls @ ud .ROUTE .STK-MED ONE Sodium Chloride 1,000 mls @ 100 mls/hr 09/18/22 15:16 09/21/22 03:16 Sodium Chloride 0.9% 1000 Ml IV 10/18/22 15:15 50 mls/hr .Q10H THERESE Administration Pantoprazole Sodium 80 mg/ 500 mls @ 50 mls/hr 09/19/22 08:00 09/23/22 03:35 Sodium Chloride IV 10/19/22 07:59 50 ml/hr .Q10H THERESE 50 mls/hr Administration Sodium Chloride 500 mls @ 50 mls/hr 09/24/22 10:00 09/24/22 10:16 Sodium Chloride 0.9% 500 Ml IV 09/24/22 16:00 50 mls/hr .Q10H THERESE Administration Lactated Ringer's Confirm 09/24/22 14:52 Lactated Ringers Administered 09/24/22 14:53 Dose 1,000 mls @ ud IV .STK-MED ONE Lactated Ringer's 1,000 mls @ 500 mls/hr 09/25/22 08:54 09/25/22 10:35 Lactated Ringers IV 09/25/22 10:53 500 mls/hr .Q2H ONE Administration Sodium Chloride 500 mls @ 50 mls/hr 09/27/22 08:00 09/27/22 08:11 Sodium Chloride 0.9% 500 Ml IV 10/27/22 07:59 50 mls/hr .Q10H THERESE Administration Insulin Human Regular 15 unit 09/18/22 13:42 09/18/22 14:13 Insulin Regular, Human 1 Unit IV 09/18/22 13:43 15 unit STAT ONE Administration Insulin Human Regular Confirm 09/18/22 14:13 Insulin Regular, Human 1 Unit Administered 09/18/22 14:14 Dose 15 unit .ROUTE .STK-MED ONE Lidocaine HCl Confirm 09/20/22 11:17 Lidocaine - Mpf 2% 5 Ml Vial Administered 09/20/22 11:18 Dose 5 ml .ROUTE .STK-MED ONE Midazolam HCl Confirm 09/20/22 11:17 Midazolam Hcl 2 Mg/2 Ml Vial Administered 09/20/22 11:18 Dose 2 mg .ROUTE .STK-MED ONE Pantoprazole Sodium 40 mg 09/18/22 12:20 09/18/22 12:57 Pantoprazole 40 Mg Vial IV 09/18/22 12:21 40 mg STAT ONE Administration Pantoprazole Sodium Confirm 09/18/22 12:43 Pantoprazole 40 Mg Vial Administered 09/18/22 12:44 Dose 40 mg IV .STK-MED ONE Pantoprazole Sodium 40 mg 09/21/22 11:18 09/21/22 21:00 Pantoprazole 40 Mg Vial IV 09/21/22 22:01 Not Given BID THERESE Pantoprazole Sodium 40 mg 09/23/22 10:00 09/24/22 09:36 Pantoprazole 40 Mg Vial IV 10/23/22 09:59 40 mg DAILY THERESE Administration Polyethylene Glycol/Electrolytes 4,000 ml 09/23/22 14:00 09/23/22 14:31 Sod Sulf/Sod/Nahco3/Kcl/Peg's 4000 Ml Bottle PO 09/23/22 14:01 4,000 ml ONCE@1400 ONE Administration Propofol Confirm 09/20/22 11:17 Propofol 10 Mg/Ml 20ml Vial Administered 09/20/22 11:18 Dose 200 mg IV .STK-MED ONE Propofol Confirm 09/24/22 16:13 Propofol 10 Mg/Ml 20ml Vial Administered 09/24/22 16:14 Dose 400 mg IV .STK-MED ONE Intake & Output (Last 24 hours) 09/28/22 09/29/22 09/30/22 10/01/22 11:59 11:59 11:59 11:59 Intake Total 1100 1320 1680 Output Total 1125 2050 1150 Balance -25 730 530 Weight 57.4 kg 57.7 kg 57.8 kg Laboratory Results (Last 24 hours) 09/30/22 09/30/22 09/30/22 11:32 07:18 05:38 WBC RBC Hgb Hct MCV MCH MCHC RDW Plt Count MPV Sodium 136 L Potassium 3.5 Chloride 109 H Carbon Dioxide 21 L Anion Gap 10.0 BUN 22 H Creatinine 1.41 H Estimated GFR 51.8 Glucose 129 H POC Glucometer 183 H 125 H Calcium 8.0 L Total Bilirubin 0.50 AST 32 ALT 19 Alkaline Phosphatase 80 Serum Total Protein 5.2 L Albumin 2.4 L 09/30/22 09/29/22 09/29/22 05:38 20:37 16:07 WBC 7.5 RBC 2.96 L Hgb 8.8 L Hct 26.9 L MCV 90.9 MCH 29.7 MCHC 32.7 RDW 15.2 H Plt Count 216 MPV 10.1 Sodium Potassium Chloride Carbon Dioxide Anion Gap BUN Creatinine Estimated GFR Glucose POC Glucometer 268 H 352 H Calcium Total Bilirubin AST ALT Alkaline Phosphatase Serum Total Protein Albumin Orders (Last 24 hours) Category Date Time Status CBC AM.LAB Lab 09/30/22 05:38 Completed CMP AM.LAB Lab 09/30/22 05:38 Completed POCT GLUCOSE Stat Lab 09/29/22 16:07 Completed POCT GLUCOSE Stat Lab 09/29/22 20:37 Completed POCT GLUCOSE Stat Lab 09/30/22 07:18 Completed POCT GLUCOSE Stat Lab 09/30/22 11:32 Completed Patient Care Notes (Last 24 hours) 09/30/22 11:42 ASSEMBLER TRIM Note by Rossy Weinberg Walked patient all the way to pharmacy door and back with steady gate. Sitting up in a chair watching TV wanted his telle off states it bothers him reported to STACEY Kiran Initialized on 09/30/22 11:42 - END OF NOTE - Vitals & Intake/Output Vital Signs: Vital Signs Temperature 97.9 F 09/30/22 11:00 Pulse Rate 89 09/30/22 11:00 Respiratory Rate 16 09/30/22 11:00 Blood Pressure 133/68 09/30/22 11:00 O2 Sat by Pulse Oximetry 98 09/30/22 11:00 Intake & Output: Intake & Output 09/28/22 09/29/22 09/30/22 10/01/22 11:59 11:59 11:59 11:59 Intake Total 1100 1320 1680 Output Total 1125 2050 1150 Balance -25 -730 530 Weight 57.4 kg 57.7 kg 57.8 kg - Lab Result Diagrams: 09/30/22 05:38 09/30/22 05:38 Lab Results-Last 24 Hrs: Lab Results-Last 24 Hours 09/29/22 09/29/22 09/30/22 Range/Units 16:07 20:37 05:38 WBC 7.5 (4.0-10.5) x10^3/uL RBC 2.96 L (4.1-5.6) x10^6/uL Hgb 8.8 L (12.5-18.0) g/dL Hct 26.9 L (42-50) % MCV 90.9 (78-100) fL MCH 29.7 (26-32) pg MCHC 32.7 (32-36) g/dL RDW 15.2 H (11.5-14.0) % Plt Count 216 (150-450) x10^3/uL MPV 10.1 (7.5-11.0) fL Sodium (137-145) mmol/L Potassium (3.5-5.1) mmol/L Chloride (98-107) mmol/L Carbon Dioxide (22-30) mmol/L Anion Gap (5-15) MEQ/L BUN (9-20) mg/dL Creatinine (0.66-1.25) mg/dL Estimated GFR ML/MIN Glucose (74-106) mg/dL POC Glucometer 352 H 268 H (74 to 106) mg/dL Calcium (8.4-10.2) mg/dL Total Bilirubin (0.2-1.3) mg/dL AST (17-59) U/L ALT (0-50) U/L Alkaline Phosphatase (38-126) U/L Serum Total Protein (6.3-8.2) g/dL Albumin (3.5-5.0) g/dL 09/30/22 09/30/22 09/30/22 Range/Units 05:38 07:18 11:32 WBC (4.0-10.5) x10^3/uL RBC (4.1-5.6) x10^6/uL Hgb (12.5-18.0) g/dL Hct (42-50) % MCV (78-100) fL MCH (26-32) pg MCHC (32-36) g/dL RDW (11.5-14.0) % Plt Count (150-450) x10^3/uL MPV (7.5-11.0) fL Sodium 136 L (137-145) mmol/L Potassium 3.5 (3.5-5.1) mmol/L Chloride 109 H (98-107) mmol/L Carbon Dioxide 21 L (22-30) mmol/L Anion Gap 10.0 (5-15) MEQ/L BUN 22 H (9-20) mg/dL Creatinine 1.41 H (0.66-1.25) mg/dL Estimated GFR 51.8 ML/MIN Glucose 129 H (74-106) mg/dL POC Glucometer 125 H 183 H (74 to 106) mg/dL Calcium 8.0 L (8.4-10.2) mg/dL Total Bilirubin 0.50 (0.2-1.3) mg/dL AST 32 (17-59) U/L ALT 19 (0-50) U/L Alkaline Phosphatase 80 (38-126) U/L Serum Total Protein 5.2 L (6.3-8.2) g/dL Albumin 2.4 L (3.5-5.0) g/dL Micro Results-Entire Visit: Microbiology 09/18/22 12:48 Blood Culture Gram Stain - Final Blood Not Reportable Blood Culture - Final NO GROWTH 09/18/22 12:35 Blood Culture Gram Stain - Final Blood Not Reportable Blood Culture - Final NO GROWTH 09/18/22 12:41 Urine Culture - Final Catherized <10K NORMAL SKIN MARTHA PROBABLE SKIN CONTAMINANT Accuchecks Date 09/30/22 Date 09/30/22 Date 09/29/22 Date 09/29/22 Time 11:45 Time 07:29 Time 20:45 Time 16:09 - Procedures and Test Procedures and Tests throughout Hospitalization: Therapy Orders & Screens 09/24/22 16:38 Respiratory Therapy Assessment ONCE Comment: Diagnosis: COVID-19 infection, anemia Discharge Exam General Appearance: no apparent distress, alert Neurologic Exam: alert, oriented x 3, cooperative, normal mood/affect, nml cerebellar function, sensation nml, No motor deficits Eye Exam: PERRL, EOMI, eyes nml inspection Ears, Nose, Throat Exam: normal ENT inspection, pharynx normal, moist mucous membranes Neck Exam: normal inspection, non-tender, supple, full range of motion Respiratory Exam: normal breath sounds, lungs clear, No respiratory distress Cardiovascular Exam: regular rate/rhythm, normal heart sounds Gastrointestinal/Abdomen Exam: soft, No tenderness, No mass Male Genitalia Exam: deferred Rectal Exam: deferred Back Exam: normal inspection, normal range of motion, No CVA tenderness, No vertebral tenderness Extremity Exam: normal inspection, normal range of motion Skin Exam: normal color, warm, dry Final Diagnosis/Problem List - Final Discharge Diagnosis/Problem (1) GI bleed Current Visit: Yes Status: Resolved Code(s): K92.2 - GASTROINTESTINAL HEMORRHAGE, UNSPECIFIED (2) Blood transfusion during current hospitalisation Current Visit: Yes Status: Resolved Code(s): WIY4441 - (3) Symptomatic anemia Current Visit: Yes Status: Chronic Code(s): D64.9 - ANEMIA, UNSPECIFIED (4) Chronic renal disease Current Visit: Yes Status: Chronic Code(s): N18.9 - CHRONIC KIDNEY DISEASE, UNSPECIFIED (5) COVID-19 virus infection Current Visit: Yes Status: Resolved Code(s): U07.1 - COVID-19 (6) HTN (hypertension) Current Visit: No Status: Chronic Code(s): I10 - ESSENTIAL (PRIMARY) HYPERTENSION - Discharge Discharge Date: 09/30/22 Disposition: Home, Self-Care Condition: Stable Prescriptions: No Action Amlodipine Besylate [Norvasc] 5 mg PO BID Lipase/Protease/Amylase [Juarez Dr 6,000 Unit Capsule] 1 cap PO QID Glipizide 10 mg [Glucotrol 10 MG] 10 mg PO DAILY Levothyroxine Sodium 50 mcg PO DAILY Metformin HCl 500 mg [Glucophage 500 MG] 500 mg PO BIDWM Prednisone 10 mg [Deltasone 10 mg] 5 mg PO DAILY Albuterol 8 gm Mdi Hfa [Ventolin Hfa MDI] 2 puffs IH QID Instructions: Good Food Sources of Iron Follow up with: FALLON GARCIA [Primary Care Provider] -
== END 2022-09-30 14:42 | disposition home or self-care (01) | DRG 347 ==
LOC: ED 12:02 → MED SURG 15:05
PROVIDERS: ADMIT Family Medicine; ATTEND Family Medicine
PROC: 0DJ08ZZ Inspection of Upper Intestinal Tract, Via Natural or Artificial Opening Endoscopic (ICD-10-PCS; principal; 2022-09-20)
PROC: 0DB Gastrointestinal System, Excision (ICD-10-PCS; 2022-09-24)
DX: K92.2 Gastrointestinal hemorrhage, unspecified (principal); U07.1 COVID-19; I12.9 Hypertensive chronic kidney disease with stage 1 through stage 4 chronic kidney disease, or unspecified chronic kidney disease; E11.22 Type 2 diabetes mellitus with diabetic chronic kidney disease; N18.9 Chronic kidney disease, unspecified; D86.9 Sarcoidosis, unspecified; E11.65 Type 2 diabetes mellitus with hyperglycemia; E78.5 Hyperlipidemia, unspecified; D64.9 Anemia, unspecified; D12.3 Benign neoplasm of transverse colon; K64.9 Unspecified hemorrhoids; Z79.899 Other long term (current) drug therapy; Z20.828 Contact with and (suspected) exposure to other viral communicable diseases; Z85.07 Personal history of malignant neoplasm of pancreas
CPT/HCPCS: 00731; 0241U; 36000; 36415; 36430; 43235; 45385; 51702; 71045; 74178; 78278; 80048; 80053; 81001; 82150; 82947; 83036; 83605; 83690; 83880; 85014; 85018; 85025; 85027; 85610; 86850; 86900; 86901; 86922; 87040; 87086; 87811; 93005; 94640; 94762; 96360; 96374; 96375; 99100; 99285; 99291; A9512; A9560; P9016; 94760; J1642; J1815; J1940; J2250; J2704; A9270-GY

== ENCOUNTER 2022-10-04 15:50 | Emergency (ER) | payer MEDICARE ==
[2022-10-04] MEDS ORDERED: PROTONIX 40 MG IV IV ONE ×2 (15:59→16:23)
--- NOTE | 2022-10-04 15:59 | ERPHSYRPT ---
"- History of Present Illness Time Seen by Provider: 10/04/22 15:58 Historian: patient, EMS, old records Exam Limitations: no limitations Physician History: This is a 77-year-old white male patient of Dr. David Solano who was admitted into the hospital on 09/18/2022 and discharged from the same hospital at [facility] on 09/30/2022 because of symptomatic, profound anemia with a hemoglobin of 5.5. During that hospitalization he received 10 units of packed red blood cells. Patient has a history of pancreatic cancer. He has had a Whipple procedure for pancreas cancer at the head of the pancreas. He is also received chemotherapy. Patient was discharged from the hospital on 09/30/2022 and was having some constipation since that time. Now, he is weak pale and not feeling well. He was seen by his primary care physician in her office today and she transferred him to our emergency department via EMS. Additional history was obtained from the patient's primary care physician, paramedics and review of the old inpatient records. Patient has a history of hypertension, diabetes, hyperlipidemia and hypothyroidism. I reviewed the patient's most recent admission into the hospital here at [facility]. General surgery was consulted there was an EGD performed on 09/20/2022 and there is some evidence of gastritis and but no ulcer. There is no sign of active bleeding. A colonoscopy was performed on 09/24/2022 and a polyp was removed, there is evidence of diverticulosis and old blood from higher/more proximal in the intestinal tract. A nuclear medicine tagged blood cell study hinted at blood in duodenum and gastric region. Timing/Duration: today Activities at Onset: none Quality: other (No significant abdominal pain) Severity of Pain-Max: none Severity of Pain-Current: none Modifying Factors: Improves With: nothing Associated Symptoms: weakness Previous symptoms: same symptoms as today, recently seen, recent hospital ization, recently treated Allergies/Adverse Reactions: No Known Drug Allergies Allergy (Verified 10/04/22 15:53) Home Medications: Albuterol 8 gm Mdi Hfa [Ventolin Hfa MDI] 2 puffs IH QID 09/18/22 [History] Amlodipine Besylate [Norvasc] 5 mg PO BID 09/18/22 [History] Glipizide 10 mg [Glucotrol 10 MG] 10 mg PO DAILY 09/18/22 [History] Levothyroxine Sodium 50 mcg PO DAILY 09/18/22 [History] Lipase/Protease/Amylase [Juarez Almendarez 6,000 Unit Capsule] 1 cap PO QID 09/18/22 [History] Metformin HCl 500 mg [Glucophage 500 MG] 500 mg PO BIDWM 09/18/22 [History] Prednisone 10 mg [Deltasone 10 mg] 5 mg PO DAILY 09/18/22 [History] Cholecalciferol (Vitamin D3) [Vitamin D3] 25 mcg PO DAILY 10/04/22 [History] Hydralazine HCl 10 mg PO TID 10/04/22 [History] Pravastatin Sodium 20 mg PO DAILY 10/04/22 [History] Hx Tetanus, Diphtheria Vaccination/Date Given: No Travel Risk - International Travel Have you traveled outside of the country in past 3 weeks: No - Coronavirus Screening Are you exhibiting any of the following symptoms?: No Close contact with a COVID-19 positive Pt in past 14-21 Days: No - Vaccine Status Have you recieved a Covid-19 vaccination: Yes Manager Of Application Development: Moderna - Vaccination Dates Date of 2cond Vaccination (if applicable): August 2020 - Review of Systems Constitutional: Weakness Eyes: No Symptoms Ears, Nose, & Throat: No Symptoms Respiratory: No Symptoms Cardiac: No Symptoms Abdominal/Gastrointestinal: No Symptoms Genitourinary Symptoms: No Symptoms Musculoskeletal: No Symptoms Skin: No Symptoms Neurological: No Symptoms Psychological: No Symptoms Endocrine: No Symptoms Hematologic/Lymphatic: Anemia Immunological/Allergic: No Symptoms All Other Systems: Reviewed and Negative - Past Medical History Pertinent Past Medical History: Yes Neurological History: No Pertinent History ENT History: No Pertinent History Cardiac History: High Cholesterol, Hypertension Respiratory History: Other Endocrine Medical History: Hypothyroidism Musculoskeletal History: No Pertinent History GI Medical History: No Pertinent History History: No Pertinent History Psycho-Social History: No Pertinent History Male Reproductive Disorders: No Pertinent History Other Medical History: 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 - Social History Smoking Status: Former smoker Exposure to second hand smoke: No Drug Use: none Patient Lives Alone: Yes - Nursing Vital Signs Nursing Vital Signs: Initial Vital Signs Temperature 97.5 F 10/04/22 15:51 Pulse Rate 64 10/04/22 15:51 Respiratory Rate 18 10/04/22 15:51 Blood Pressure 110/68 10/04/22 15:51 O2 Sat by Pulse Oximetry 99 10/04/22 15:51 Pain Scale Pain Intensity 0 - Physical Exam General Appearance: no apparent distress, lethargy, cachetic Eye Exam: pale conjunctivae Ears, Nose, Throat Exam: dry mucous membranes Neck Exam: normal inspection, non-tender, supple, full range of motion Respiratory Exam: normal breath sounds, lungs clear, prolonged expirations, No chest tenderness, No respiratory distress Cardiovascular Exam: regular rate/rhythm, normal heart sounds, normal peripheral pulses Gastrointestinal/Abdomen Exam: soft, normal bowel sounds, No tenderness Rectal Exam: not done Back Exam: normal inspection, normal range of motion, No CVA tenderness, No vertebral tenderness Extremity Exam: normal inspection, normal range of motion, pelvis stable Neurologic Exam: alert, oriented x 3, cooperative, kelp or seagrass gatherer II-XII nml as tested, normal mood/affect, nml cerebellar function, nml station & gait, sensation nml Skin Exam: warm, dry, pale Lymphatic Exam: adenopathy SpO2 Interpretation: normal O2 Delivery: Room Air - Course Nursing assessment & vital signs reviewed: Yes EKG Interpreted by Me: RATE (63), Sinus Rhythm, NORMAL AXIS, NORMAL INTERVALS, Right Bundle Branch Block, NORMAL ST-T, Other (No acute ischemic changes on today's twelve-lead EKG.) Ordered Tests: Active Orders 24 hr Category Date Time Status Catheter-[place] Levin STAT Care 10/04/22 15:59 Active IV Insertion STAT Care 10/04/22 15:59 Active ABDOMEN AND PELVIS W/0 CONTRAS [CT] Stat Exams 10/04/22 16:00 Completed AMYLASE Stat Lab 10/04/22 16:16 Completed CBC W DIFF Stat Lab 10/04/22 16:16 Completed CMP Stat Lab 10/04/22 16:16 Completed LIPASE Stat Lab 10/04/22 16:16 Completed Lactic Acid Stat Lab 10/04/22 16:40 Completed PROTIME WITH INR Stat Lab 10/04/22 16:16 Completed Medication Summary Generic Name Dose Route Start Last Admin Trade Name Zoe PRN Reason Stop Dose Admin Sodium Chloride 1,000 mls @ 100 mls/hr 10/04/22 16:00 10/04/22 16:26 Sodium Chloride 0.9% 1000 Ml IV 11/03/22 15:59 100 mls/hr .Q10H THERESE Administration Sodium Chloride 500 mls @ 50 mls/hr 10/04/22 17:30 10/04/22 17:29 Sodium Chloride 0.9% 500 Ml IV 11/03/22 17:29 50 mls/hr .Q10H THERESE Administration Discontinued Medications Generic Name Dose Route Start Last Admin Trade Name Zoe PRN Reason Stop Dose Admin Pantoprazole Sodium 40 mg 10/04/22 15:59 10/04/22 16:26 Pantoprazole 40 Mg Vial IV 10/04/22 16:00 40 mg STAT ONE Administration Pantoprazole Sodium Confirm 10/04/22 16:23 Pantoprazole 40 Mg Vial Administered 10/04/22 16:24 Dose 40 mg IV .QED | [facility] [employer] Lab/Rad Data: Laboratory Result Diagrams 10/04/22 16:16 10/04/22 16:16 Laboratory Results 10/04/22 10/04/22 10/04/22 Range/Units 16:40 16:16 16:16 WBC (4.0-10.5) x10^3/uL RBC (4.1-5.6) x10^6/uL Hgb (12.5-18.0) g/dL Hct (42-50) % MCV (78-100) fL MCH (26-32) pg MCHC (32-36) g/dL RDW (11.5-14.0) % Plt Count (150-450) x10^3/uL MPV (7.5-11.0) fL Gran % (36.0-66.0) % Immature Gran % (Auto) (0.00-0.4) % Nucleat RBC Rel Count (0.00-0.1) % Eos # (Auto) (0-0.5) x10^3/uL Immature Gran # (Auto) (0.00-0.03) x10^3u/L Absolute Lymphs (auto) (1.0-4.6) x10^3/uL Absolute Monos (auto) (0.0-1.3) x10^3/uL Absolute Nucleated RBC (0.00-0.01) x10^3u/L Lymphocytes % (24.0-44.0) % Monocytes % (0.0-12.0) % Eosinophils % (0.00-5.0) % Basophils % (0.0-0.4) % Absolute Granulocytes (1.4-6.9) x10^3/uL Basophils # (0-0.4) x10^3/uL PT (9.4-12.5) SECONDS INR (0.8-3.0) Sodium (137-145) mmol/L Potassium (3.5-5.1) mmol/L Chloride (98-107) mmol/L Carbon Dioxide (22-30) mmol/L Anion Gap (5-15) MEQ/L BUN (9-20) mg/dL Creatinine (0.66-1.25) mg/dL Estimated GFR ML/MIN Glucose (74-106) mg/dL Lactic Acid 1.5 (0.4-2.0) Calcium (8.4-10.2) mg/dL Total Bilirubin (0.2-1.3) mg/dL AST (17-59) U/L ALT (0-50) U/L Alkaline Phosphatase (38-126) U/L Serum Total Protein (6.3-8.2) g/dL Albumin (3.5-5.0) g/dL Amylase (30-110) U/L Lipase (23-300) U/L ABO Group O Rh Factor POSITIVE Antibody Screen NEGATIVE (NEGATIVE) Crossmatch COMPATIBLE COMPATIBLE (COMPATIBLE) 10/04/22 10/04/22 10/04/22 Range/Units 16:16 16:16 16:16 WBC 9.0 (4.0-10.5) x10^3/uL RBC 2.28 L (4.1-5.6) x10^6/uL Hgb 6.6 L* (12.5-18.0) g/dL Hct 21.7 L (42-50) % MCV 95.2 (78-100) fL MCH 28.9 (26-32) pg MCHC 30.4 L (32-36) g/dL RDW 14.9 H (11.5-14.0) % Plt Count 218 (150-450) x10^3/uL MPV 9.9 (7.5-11.0) fL Gran % 75.1 H (36.0-66.0) % Immature Gran % (Auto) 0.7 H (0.00-0.4) % Nucleat RBC Rel Count 0.0 (0.00-0.1) % Eos # (Auto) 0.18 (0-0.5) x10^3/uL Immature Gran # (Auto) 0.06 H (0.00-0.03) x10^3u/L Absolute Lymphs (auto) 1.08 (1.0-4.6) x10^3/uL Absolute Monos (auto) 0.83 (0.0-1.3) x10^3/uL Absolute Nucleated RBC 0.00 (0.00-0.01) x10^3u/L Lymphocytes % 12.1 L (24.0-44.0) % Monocytes % 9.3 (0.0-12.0) % Eosinophils % 2.0 (0.00-5.0) % Basophils % 0.8 (0.0-0.4) % Absolute Granulocytes 6.74 (1.4-6.9) x10^3/uL Basophils # 0.07 (0-0.4) x10^3/uL PT 10.7 (9.4-12.5) SECONDS INR 0.98 (0.8-3.0) Sodium 132 L (137-145) mmol/L Potassium 4.9 (3.5-5.1) mmol/L Chloride 103 (98-107) mmol/L Carbon Dioxide 24 (22-30) mmol/L Anion Gap 10.3 (5-15) MEQ/L BUN 19 (9-20) mg/dL Creatinine 1.23 (0.66-1.25) mg/dL Estimated GFR > 60.0 ML/MIN Glucose 192 H (74-106) mg/dL Lactic Acid (0.4-2.0) Calcium 8.1 L (8.4-10.2) mg/dL Total Bilirubin 0.30 (0.2-1.3) mg/dL AST 32 (17-59) U/L ALT 21 (0-50) U/L Alkaline Phosphatase 71 (38-126) U/L Serum Total Protein 5.2 L (6.3-8.2) g/dL Albumin 2.3 L (3.5-5.0) g/dL Amylase 47 (30-110) U/L Lipase 29 (23-300) U/L ABO Group Rh Factor Antibody Screen (NEGATIVE) Crossmatch (COMPATIBLE) - Progress Progress: unchanged Progress Note: 10/04/22 17:55 CT scan of the abdomen pelvis without contrast was performed today. It was compared to that study performed on 09/18/2022. There is worsening nonspecific moderate abdominal pelvic free fluid. There is no free air. There is stable bibasilar consolidating airspace opacities. There is new abnormally distended urinary bladder which may suggest either outlet obstruction or neurogenic bladder. This patient's medical issue is 1 of high complexity. The level of complexity and the work-up performed is based on the patient's past medical history, review of the patient's medication list, review of the patient's drug allergies, history of present illness and history of present illness as well as physical findings on examination. The patient had an intravenous line placed, fluids of normal saline were infused, type and cross, CBC, CMP, amylase and lipase, PT/INR, urinalysis were performed. I also ordered a CAT scan of the abdomen pelvis with the above-stated findings that were reviewed by me and read by the radiologist. I spoke with the patient's surgeon out of [facility] in [place]. The doctors name is Dr. Mata. I reviewed the patient's last emergency room visit and the 12-day hospital stay in our facility. I reviewed the operative notes from the surgeons who performed EGD and colonoscopy re spectively. I also reviewed the impression of the tagged nuclear medicine study that was performed. I reviewed today's labs and the results of the CAT scan of the abdomen pelvis with him. He accepts the patient in transfer. [facility] will be contacting us when a bed becomes available. Counseled pt/family regarding: lab results, diagnosis, rad results Medical Desision Making - Independent Historian Additional History obtained from: EMS, PCP, Signal Technician/EMT - External Record(s) Reviewed Records reviewed as a part of evaluation & management: Inpatient, Discharge Summary - Discussion of managment Care discussed with:: specialist (Dr. Mata the general surgeon who performed the with the procedure on this patient out of [facility] in [place]) - Diagnostic Testing Diagnostic test were ordered, analyzed, and reviewed by me: Yes Radiological Interpretation: Reviewed by me, Teleradiologist Report - Risk of complications The pt has a high risk of morbidity or mortality based on: Decision regarding hospitilization or escalation of hosp level of care - Departure Departure Disposition: Transfer Clinical Impression: GI bleed, Symptomatic anemia Condition: Fair Critical Care Time: Yes Critical Care Time(excluding separately billable procedures): Critical 30-74 mins (40 minutes) Referrals: FALLON GARCIA [Primary Care Provider] - Follow up/PCP as directed"
[2022-10-04] MEDS ORDERED: Sodium Chloride 0.9% 1000 ML 1,000 ML IV SCH (16:00)
[2022-10-04 16:23] LABS: Absolute Neutrophil Ct (ANC) 6.74 x10^3/uL (1.4-6.9); BASOPHIL % 0.8 % (0.0-0.4); Basophil (Absolute #) 0.07 x10^3/uL (0-0.4); Eosinophil (Absolute #) 0.18 x10^3/uL (0-0.5); Hematocrit 21.7 % (42-50); IMMATURE GRAN # 0.06 x10^3u/L (0.00-0.03); IMMATURE GRAN % 0.7 % (0.00-0.4); Lymphocyte (Absolute #) 1.08 x10^3/uL (1.0-4.6); Lymphocytes % 12.1 % (24.0-44.0); Mean Cell Volume 95.2 fL (78-100); Mean Corpuscular Hemoglobin 28.9 pg (26-32); Mean Corpuscular Hgb Concent. 30.4 g/dL (32-36); Mean Platelet Volume 9.9 fL (7.5-11.0); Monocyte (Absolute #) 0.83 x10^3/uL (0.0-1.3); Monocytes % 9.3 % (0.0-12.0); Neutrophil % 75.1 % (36.0-66.0); Platelet Count 218 x10^3/uL (150-450); Red Blood Count 2.28 x10^6/uL (4.1-5.6); Red Cell Distribution Width 14.9 % (11.5-14.0)
[2022-10-04] MEDS ORDERED: Sodium Chloride 0.9% 1000 ML 1,000 ML ONE (16:23)
[2022-10-04 16:24] LABS: Hemoglobin 6.6 g/dL (12.5-18.0)
[2022-10-04 16:35] LABS: INR 0.98 (0.8-3.0); PROTIME 10.7 SECONDS (9.4-12.5)
[2022-10-04 16:37] LABS: ALBUMIN 2.3 g/dL (3.5-5.0); ALKALINE PHOSPHATASE 71 U/L (38-126); AMYLASE 47 U/L (30-110); ANION GAP 10.3 MEQ/L (5-15); BLOOD UREA NITROGEN 19 mg/dL (9-20); CHLORIDE 103 mmol/L (98-107); Calcium 8.1 mg/dL (8.4-10.2); Carbon Dioxide 24 mmol/L (22-30); Creatinine 1 1.23 mg/dL (0.66-1.25); EST GLOMERULAR FILTRATION RATE > 60.0 ML/MIN; Glucose 192 mg/dL (74-106); LIPASE 29 U/L (23-300); Potassium 4.9 mmol/L (3.5-5.1); SGOT/AST 32 U/L (17-59); SGPT/ALT 21 U/L (0-50); SODIUM 132 mmol/L (137-145); Total Protein 5.2 g/dL (6.3-8.2)
--- NOTE | 2022-10-04 16:47 | XRAY ---
Indication: GI bleed. Multiple contiguous axial images obtained through abdomen and pelvis without contrast. Comparison: September 25, 2022 Lung bases again demonstrates pulmonary emphysema and incompletely visualized bilateral lower lobe patchy consolidating opacities grossly unchanged. Heart not enlarged. New small hiatal hernia. Noncontrasted stomach and bowel loops remain nonobstructed. Again Whipple procedure and cholecystectomy with pneumobilia. Interval increasing moderate abdominal and pelvic free fluid. No free air. Spleen demonstrates stable splenule's are tiny calcified granulomas. Stable small bilateral renal cysts. Urinary bladder is now moderately distended concerning for outlet obstruction versus neurogenic bladder. Remaining liver, spleen, adrenal glands, and ureters are unremarkable for noncontrast exam. Again mild scattered aortoiliac calcifications without AAA. Stable small periumbilical ventral hernia with loop of bowel herniating without complications. Impression: 1. Worsening nonspecific moderate abdominal/pelvic free fluid. No free air. 2. New small hiatal hernia. 3. New abnormally distended urinary bladder. Rule out outlet obstruction versus neurogenic bladder. 4. Grossly stable bibasilar consolidating airspace opacities. 5. Again chronic findings including pulmonary emphysema, Whipple's procedure, cholecystectomy with pneumobilia, bilateral renal cysts, arteriosclerotic disease, and small periumbilical ventral hernia.
[2022-10-04 17:14] LABS: ABO TYPING O; Antibody Screen NEGATIVE (NEGATIVE); RH TYPING POSITIVE
[2022-10-04 17:16] LABS: CROSS MATCH (PRBC) COMPATIBLE (COMPATIBLE)
[2022-10-04] MEDS ORDERED: Sodium Chloride 0.9% 500 ML 500 ML IV ONE (17:29)
[2022-10-04] MEDS ORDERED: Sodium Chloride 0.9% 500 ML 500 ML IV SCH (17:30)
[2022-10-05 02:37] VITALS: BP 130/80; PULSE 66; O2SAT 98
== END 2022-10-05 02:30 | disposition short-term general hospital (02) ==
LOC: ED 15:50
DX: K92.2 Gastrointestinal hemorrhage, unspecified (principal); D64.9 Anemia, unspecified; R53.1 Weakness; I10 Essential (primary) hypertension; E11.9 Type 2 diabetes mellitus without complications; E78.5 Hyperlipidemia, unspecified; Z79.84 Long term (current) use of oral hypoglycemic drugs; Z79.52 Long term (current) use of systemic steroids; Z79.899 Other long term (current) drug therapy
CPT/HCPCS: 36415; 36430; 74176; 80053; 82150; 83605; 83690; 85025; 85610; 86850; 86900; 86901; 86922; 96374; 99285; 99291; P9016

== ENCOUNTER 2022-10-11 23:09 | Observation (INO) | payer MEDICARE ==
--- NOTE | 2022-10-11 23:13 | ERPHSYRPT ---
- History of Present Illness Time Seen by Provider: 10/11/22 23:12 Source: patient, EMS, old records Exam Limitations: clinical condition Physician History: This is a 77-year-old white male patient is diabetic, has hypertension and hypothyroidism who has been chronically anemic since his pancreatic cancer surgery performed in 2020. He patient underwent a Whipple procedure in October 2020 and completed chemotherapy in May 2021. In the last several weeks he has been seen in our emergency department 2 other times. He has been significantly anemic with a hemoglobin of 5.5 and the last visit on 10/04/2026 of 6.6. In our institution he has received 12 units of packed red blood cells. During the last stay in the hospital here at [facility] he underwent an upper endoscopy, lower endoscopy, CAT scan of the abdomen pelvis, and a tagged nuclear medicine scan. They have been unable to localize the bleeding site. Patient was transferred from our emergency department on 10/04/[address] [facility] in [place]. There, per his report, they did no further radiographic studies but did attempt to localize the area of blood loss with an upper endoscopy. He states it was unsuccessful. He stated that he is feeling weak over the last couple days since he has been home and he feels he may be significantly anemic again. Patient did state that he is a DO NOT RESUSCITATE here tonight. Patient denies chest pain. Patient denies abdominal pain. Timing/Duration: today Severity: moderate Associated Symptoms: weakness, No nausea, No vomiting, No abdominal pain, No shortness of breath, No chest pain Allergies/Adverse Reactions: No Known Drug Allergies Allergy (Verified 10/11/22 23:12) Home Medications: Albuterol 8 gm Mdi Hfa [Ventolin Hfa MDI] 2 puffs IH QID 09/18/22 [History] Amlodipine Besylate [Norvasc] 5 mg PO BID 09/18/22 [History] Glipizide 10 mg [Glucotrol 10 MG] 10 mg PO DAILY 09/18/22 [History] Levothyroxine Sodium 50 mcg PO DAILY 09/18/22 [History] Lipase/Protease/Amylase [Juarez Almendarez 6,000 Unit Capsule] 1 cap PO QID 09/18/22 [History] Metformin HCl 500 mg [Glucophage 500 MG] 500 mg PO BIDWM 09/18/22 [History] Prednisone 10 mg [Deltasone 10 mg] 5 mg PO DAILY 09/18/22 [History] Cholecalciferol (Vitamin D3) [Vitamin D3] 25 mcg PO DAILY 10/04/22 [History] Hydralazine HCl 10 mg PO TID 10/04/22 [History] Pravastatin Sodium 20 mg PO DAILY 10/04/22 [History] Hx Tetanus, Diphtheria Vaccination/Date Given: No Hx Influenza Vaccination/Date Given: Yes Hx Pneumococcal Vaccination/Date Given: Yes Travel Risk - International Travel Have you traveled outside of the country in past 3 weeks: No - Coronavirus Screening Are you exhibiting any of the following symptoms?: No Close contact with a COVID-19 positive Pt in past 14-21 Days: No - Vaccine Status Have you recieved a Covid-19 vaccination: Yes 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 - Vaccination Dates Date of 2cond Vaccination (if applicable): August 2020 - Review of Systems Constitutional: Weakness Eyes: No Symptoms Ears, Nose, & Throat: No Symptoms Respiratory: No Symptoms Cardiac: No Symptoms Abdominal/Gastrointestinal: No Symptoms Genitourinary Symptoms: No Symptoms Musculoskeletal: No Symptoms Skin: No Symptoms Neurological: No Symptoms Psychological: No Symptoms Endocrine: No Symptoms Hematologic/Lymphatic: No Symptoms Immunological/Allergic: No Symptoms All Other Systems: Reviewed and Negative - Past Medical History Pertinent Past Medical History: Yes Neurological History: No Pertinent History ENT History: No Pertinent History Cardiac History: High Cholesterol, Hypertension Respiratory History: Other Endocrine Medical History: Hypothyroidism Musculoskeletal History: No Pertinent History GI Medical History: No Pertinent History History: No Pertinent History Psycho-Social History: No Pertinent History Male Reproductive Disorders: No Pertinent History Other Medical History: 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 - Social History Smoking Status: Former smoker Exposure to second hand smoke: No Drug Use: none Patient Lives Alone: Yes - Nursing Vital Signs Nursing Vital Signs: Initial Vital Signs Temperature 97.7 F 10/11/22 23:14 Pulse Rate 81 10/11/22 23:14 Respiratory Rate 18 10/11/22 23:14 Blood Pressure 96/58 10/11/22 23:14 O2 Sat by Pulse Oximetry 100 10/11/22 23:14 Pain Scale Pain Intensity 0 - Physical Exam General Appearance: no apparent distress, alert, anxiety, thin Eye Exam: pale conjunctivae Ears, Nose, Throat Exam: normal ENT inspection, moist mucous membranes Neck Exam: normal inspection, non-tender, supple, full range of motion Respiratory Exam: normal breath sounds, lungs clear, airway intact, No chest tenderness, No respiratory distress Cardiovascular Exam: regular rate/rhythm, normal heart sounds, normal peripheral pulses Gastrointestinal/Abdomen Exam: soft, normal bowel sounds, No tenderness Rectal Exam: not done Back Exam: normal inspection, normal range of motion, No CVA tenderness, No vertebral tenderness Extremity Exam: normal inspection, normal range of motion, pelvis stable Neurologic Exam: alert, oriented x 3, cooperative, 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 No acute ischemic changes on today's twelve-lead EKG.) Ordered Tests: Active Orders 24 hr Category Date Time Status IV Insertion STAT Care 10/11/22 23:16 Active AMYLASE Stat Lab 10/11/22 23:45 Completed CBC W DIFF Stat Lab 10/11/22 23:45 Completed CMP Stat Lab 10/11/22 23:45 Completed LIPASE Stat Lab 10/11/22 23:45 Completed Transfer Order Routine Transfer 10/12/22 Ordered Medication Summary Generic Name Dose Route Start Last Admin Trade Name Freq PRN Reason Stop Dose Admin Sodium Chloride 1,000 mls @ 100 mls/hr 10/11/22 23:30 10/11/22 23:56 Sodium Chloride 0.9% 1000 Ml IV 11/10/22 23:29 100 mls/hr .Q10H THERESE Administration Insulin Human Regular 4 unit 10/12/22 01:24 Insulin Regular, Human 1 Unit IV 10/12/22 01:25 STAT ONE Discontinued Medications Generic Name Dose Route Start Last Admin Trade Name oZe PRN Reason Stop Dose Admin Calcium Gluconate 1,000 mg 10/12/22 01:23 Calcium Gluconate 1000 Mg/10 Ml Vial IV 10/12/22 01:24 STAT ONE Furosemide 20 mg 10/12/22 01:21 Furosemide 20 Mg/Vial IV 10/12/22 01:22 STAT ONE Patiromer 16.8 gm 10/12/22 01:21 Patiromer Calcium Sorbitex 8.4 Gm Powd.Pack PO 10/12/22 01:22 STAT STA Lab/Rad Data: Laboratory Result Diagrams 10/11/22 23:45 10/11/22 23:45 Laboratory Results 10/11/22 10/11/22 10/11/22 Range/Units 23:45 23:45 23:45 WBC 7.4 (4.0-10.5) x10^3/uL RBC 2.64 L (4.1-5.6) x10^6/uL Hgb 7.7 L (12.5-18.0) g/dL Hct 25.9 L (42-50) % MCV 98.1 (78-100) fL MCH 29.2 (26-32) pg MCHC 29.7 L (32-36) g/dL RDW 14.8 H (11.5-14.0) % Plt Count 297 (150-450) x10^3/uL MPV 10.2 (7.5-11.0) fL Gran % 76.3 H (36.0-66.0) % Immature Gran % (Auto) 0.7 H (0.00-0.4) % Nucleat RBC Rel Count 0.0 (0.00-0.1) % Eos # (Auto) 0.05 (0-0.5) x10^3/uL Immature Gran # (Auto) 0.05 H (0.00-0.03) x10^3u/L Absolute Lymphs (auto) 1.02 (1.0-4.6) x10^3/uL Absolute Monos (auto) 0.58 (0.0-1.3) x10^3/uL Absolute Nucleated RBC 0.00 (0.00-0.01) x10^3u/L Lymphocytes % 13.7 L (24.0-44.0) % Monocytes % 7.8 (0.0-12.0) % Eosinophils % 0.7 (0.00-5.0) % Basophils % 0.8 (0.0-0.4) % Absolute Granulocytes 5.66 (1.4-6.9) x10^3/uL Basophils # 0.06 (0-0.4) x10^3/uL Sodium 134 L (137-145) mmol/L Potassium 6.4 H* (3.5-5.1) mmol/L Chloride 107 (98-107) mmol/L Carbon Dioxide 18 L (22-30) mmol/L Anion Gap 15.2 H (5-15) MEQ/L BUN 38 H (9-20) mg/dL Creatinine 1.49 H (0.66-1.25) mg/dL Estimated GFR 48.6 ML/MIN Glucose 293 H (74-106) mg/dL Calcium 7.8 L (8.4-10.2) mg/dL Total Bilirubin 0.30 (0.2-1.3) mg/dL AST 28 (17-59) U/L ALT 19 (0-50) U/L Alkaline Phosphatase 61 (38-126) U/L Serum Total Protein 5.1 L (6.3-8.2) g/dL Albumin 2.2 L (3.5-5.0) g/dL Amylase 49 (30-110) U/L Lipase 28 (23-300) U/L Influenza Type A Ag NEGATIVE (NEGATIVE) Influenza Type B Ag NEGATIVE (NEGATIVE) RSV (PCR) NEGATIVE (NEGATIVE) SARS-CoV-2 (PCR) POSITIVE A (NEGATIVE) - Progress Progress: improved, re-examined Progress Note: 10/12/22 00:15 This is a 77-year-old white male patient has medical issue of high complexity. The level of complexity in the work-up performed is based on review of the patient's past medical history, medication list review, review of drug a llergies, history of present illness and physical findings on examination. This patient felt as though he was anemic. The patient is having an IV line placed infusion of low rate normal saline and typed and crossed for 2 units packed red blood cells. In addition CBC, CMP is performed. I am holding off on any CAT scan of the abdomen pelvis. Patient has had an extensive work-up in the last 2 weeks and has had 2 CAT scans performed which did not show any acute intra- abdominal or intrapelvic process. Patient has been made DNR. We will contact the telehospitalist on-call and type and cross this patient for 2 units of packed red blood cell and infuse 1 unit and repeat CBC in the morning and we will keep another unit of packed red blood cell on hold. Discussed with Dr.: Other (Dr. Cr telehospitalist) Counseled pt/family regarding: lab results, diagnosis, need for follow-up Medical Desision Making - Independent Historian Additional History obtained from: EMS - External Record(s) Reviewed Records reviewed as a part of evaluation & management: Inpatient, Discharge Summary, EMS - Discussion of managment Care discussed with:: hospitalist Reviewed:: Test results, Need for additional workup Agreed on:: Treatment plan, need for follow-up, decision to admit - Diagnostic Testing Diagnostic test were ordered, analyzed, and reviewed by me: Yes - Risk of complications The pt has a high risk of morbidity or mortality based on: Decision regarding hospitilization or escalation of hosp level of care - Departure Departure Disposition: Home Clinical Impression: Symptomatic anemia, COVID-19 virus infection, Hyperkalemia Condition: Fair Critical Care Time: Yes Critical Care Time(excluding separately billable procedures): Critical 30-74 mins (40 minutes) Referrals: FALLON GARCIA [Primary Care Provider] - Follow up/PCP as directed
[2022-10-11] MEDS ORDERED: Sodium Chloride 0.9% 1000 ML 1,000 ML IV SCH (23:30)
[2022-10-11 23:53] LABS: Absolute Neutrophil Ct (ANC) 5.66 x10^3/uL (1.4-6.9); BASOPHIL % 0.8 % (0.0-0.4); Basophil (Absolute #) 0.06 x10^3/uL (0-0.4); Eosinophil % 0.7 % (0.00-5.0); Eosinophil (Absolute #) 0.05 x10^3/uL (0-0.5); Hematocrit 25.9 % (42-50); Hemoglobin 7.7 g/dL (12.5-18.0); IMMATURE GRAN # 0.05 x10^3u/L (0.00-0.03); IMMATURE GRAN % 0.7 % (0.00-0.4); Lymphocyte (Absolute #) 1.02 x10^3/uL (1.0-4.6); Lymphocytes % 13.7 % (24.0-44.0); Mean Cell Volume 98.1 fL (78-100); Mean Corpuscular Hemoglobin 29.2 pg (26-32); Mean Corpuscular Hgb Concent. 29.7 g/dL (32-36); Mean Platelet Volume 10.2 fL (7.5-11.0); Monocyte (Absolute #) 0.58 x10^3/uL (0.0-1.3); Monocytes % 7.8 % (0.0-12.0); Neutrophil % 76.3 % (36.0-66.0); Platelet Count 297 x10^3/uL (150-450); Red Blood Count 2.64 x10^6/uL (4.1-5.6); Red Cell Distribution Width 14.8 % (11.5-14.0); White Blood Count 7.4 x10^3/uL (4.0-10.5)
[2022-10-11] MEDS ORDERED: Sodium Chloride 0.9% 1000 ML 1,000 ML ONE (23:55)
[2022-10-12 00:30] LABS: INFLUENZA A NEGATIVE (NEGATIVE); INFLUENZA B NEGATIVE (NEGATIVE); RESPIRATORY SYNCTIAL VIRUS NEGATIVE (NEGATIVE)
[2022-10-12 01:09] LABS: SARS-CoV-2 Xpert Express POSITIVE (NEGATIVE)
[2022-10-12 01:12] LABS: ALBUMIN 2.2 g/dL (3.5-5.0); ANION GAP 15.2 MEQ/L (5-15); BILIRUBIN,TOTAL 0.3 mg/dL (0.2-1.3); Calcium 7.8 mg/dL (8.4-10.2); Creatinine 1 1.49 mg/dL (0.66-1.25); EST GLOMERULAR FILTRATION RATE 48.6 ML/MIN; Total Protein 5.1 g/dL (6.3-8.2)
[2022-10-12 01:14] LABS: Potassium 6.4 mmol/L (3.5-5.1)
[2022-10-12] MEDS ORDERED: VELTASSA PO STA (01:21)
[2022-10-12] MEDS ORDERED: Lasix 20 MG/2 ML IV ONE (01:21)
[2022-10-12] MEDS ORDERED: Calcium Gluconate 10% 1000 MG IV ONE ×2 (01:23→01:43)
[2022-10-12] MEDS ORDERED: HUMULIN R IV ONE (01:24)
[2022-10-12] MEDS ORDERED: Lasix 20 MG/2 ML ONE (01:25)
[2022-10-12] MEDS ORDERED: HUMULIN R ONE (01:44)
[2022-10-12] MEDS ORDERED: TYLENOL 325 MG PO PRN (02:37)
[2022-10-12] MEDS ORDERED: Zofran 4 MG/2 ML VIAL IV PRN (02:37)
[2022-10-12] MEDS ORDERED: HUMULIN R SQ PRN (02:37)
[2022-10-12 02:56] LABS: ABO TYPING O; Antibody Screen NEGATIVE (NEGATIVE); RH TYPING POSITIVE
[2022-10-12 02:58] LABS: CROSS MATCH (PRBC) COMPATIBLE (COMPATIBLE)
[2022-10-12] MEDS ORDERED: Docusate Sodium 100 MG PO PRN (03:16)
[2022-10-12] MEDS ORDERED: PHENERGAN 25 MG PO PRN (03:16)
[2022-10-12] MEDS ORDERED: HUMALOG SQ PRN (03:16)
[2022-10-12] MEDS ORDERED: Kayexylate 15 GM/60 ML PO ONE (03:23)
--- NOTE | 2022-10-12 03:34 | PCM.HP ---
History of Present Illness - Chief Complaint Chief Complaint: Symptomatic anemia Date: 10/12/22 History of Present Illness: is a 77 year old male who presented to the ED with fatigue and a report of recent blood in his stools. As documented in the ED note, the patient has had recent GI bleed with significant endoscopic evaluation here and in [place] without a precise source being identified. The patient recently has received transfusions. He reports red blood in his stool but denies hematemesis or melena. He also denies dyspnea or chest pain. He also was recently diagnosed with Covid and was noted to be persistently positive in the ED; however, he d enies fever or cough. - Review of Systems Constitutional: Fatigue, Lethargy Eyes: No Symptoms Ears, Nose, & Throat: No Symptoms Respiratory: No Symptoms Cardiac: No Symptoms Abdominal/Gastrointestinal: Hematochezia Genitourinary Symptoms: No Symptoms Musculoskeletal: No Symptoms Skin: No Symptoms Neurological: No Symptoms Psychological: No Symptoms Endocrine: No Symptoms Medications & Allergies Home Medications: Home Medication List Albuterol 8 gm Mdi Hfa [Ventolin Hfa MDI] 2 puffs IH QID 09/18/22 [History Confirmed 10/11/22] Amlodipine Besylate [Norvasc] 5 mg PO BID 09/18/22 [History Confirmed 10/11/22] Glipizide 10 mg [Glucotrol 10 MG] 10 mg PO DAILY 09/18/22 [History Confirmed 10/11/22] Levothyroxine Sodium 50 mcg PO DAILY 09/18/22 [History Confirmed 10/11/22] Lipase/Protease/Amylase [Juarez Almendarez 6,000 Unit Capsule] 1 cap PO QID 09/18/22 [History Confirmed 10/11/22] Metformin HCl 500 mg [Glucophage 500 MG] 500 mg PO BIDWM 09/18/22 [History Confirmed 10/11/22] Prednisone 10 mg [Deltasone 10 mg] 5 mg PO DAILY 09/18/22 [History Confirmed 10/11/22] Cholecalciferol (Vitamin D3) [Vitamin D3] 25 mcg PO DAILY 10/04/22 [History Confirmed 10/11/22] Hydralazine HCl 10 mg PO TID 10/04/22 [History Confirmed 10/11/22] Pravastatin Sodium 20 mg PO DAILY 10/04/22 [History Confirmed 10/11/22] Allergies/Adverse Reactions: Allergies Allergy/AdvReac Type Severity Reaction Status Date / Time No Known Drug Allergies Allergy Verified 10/11/22 23:12 - Past Medical History Past Medical History: Yes Neurological History: No Pertinent History ENT History: No Pertinent History Cardiac History: High Cholesterol, Hypertension Respiratory History: Other Endocrine Medical History: Hypothyroidism Musculoskelatal History: No Pertinent History GI Medical History: GI Bleed History: No Pertinent History Pyscho-Social History: No Pertinent History Male Reproductive Disorders: No Pertinent History Comment: 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 - Social History Smoking Status: Former smoker Exposure to second hand smoke: No Alcohol: None Drug Use: none - Physical Exam Vital Signs: Vital Signs - 24 hr Temp Pulse Resp BP Pulse Ox 10/12/22 01:00 77 14 100/61 98 10/12/22 00:10 74 83/57 99 10/11/22 23:14 97.7 F 81 18 96/58 100 General Appearance: no apparent distress, lethargy, thin Neurologic Exam: alert, oriented x 3, cooperative, 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 as tested, normal mood/affect, nml cerebellar function, sensation nml Eye Exam: PERRL/EOMI, eyes nml inspection Ears, Nose, Throat Exam: normal ENT inspection, pharynx normal, moist mucous membranes Neck Exam: normal inspection, non-tender, supple, full range of motion Respiratory Exam: normal breath sounds, chest tenderness, lungs clear Cardiovascular Exam: regular rate/rhythm, normal heart sounds, normal peripheral pulses Gastrointestinal/Abdomen Exam: soft, normal bowel sounds Rectal Exam: deferred (Patient has had red currant colored BM upon arrival) Extremity Exam: normal inspection Skin Exam: pale Results - Labs Lab/Micro Results: Lab Results-Last 24 Hours 10/11/22 10/11/22 10/11/22 Range/Units 23:45 23:45 23:45 WBC 7.4 (4.0-10.5) x10^3/uL RBC 2.64 L (4.1-5.6) x10^6/uL Hgb 7.7 L (12.5-18.0) g/dL Hct 25.9 L (42-50) % MCV 98.1 (78-100) fL MCH 29.2 (26-32) pg MCHC 29.7 L (32-36) g/dL RDW 14.8 H (11.5-14.0) % Plt Count 297 (150-450) x10^3/uL MPV 10.2 (7.5-11.0) fL Gran % 76.3 H (36.0-66.0) % Immature Gran % (Auto) 0.7 H (0.00-0.4) % Nucleat RBC Rel Count 0.0 (0.00-0.1) % Eos # (Auto) 0.05 (0-0.5) x10^3/uL Immature Gran # (Auto) 0.05 H (0.00-0.03) x10^3u/L Absolute Lymphs (auto) 1.02 (1.0-4.6) x10^3/uL Absolute Monos (auto) 0.58 (0.0-1.3) x10^3/uL Absolute Nucleated RBC 0.00 (0.00-0.01) x10^3u/L Lymphocytes % 13.7 L (24.0-44.0) % Monocytes % 7.8 (0.0-12.0) % Eosinophils % 0.7 (0.00-5.0) % Basophils % 0.8 (0.0-0.4) % Absolute Granulocytes 5.66 (1.4-6.9) x10^3/uL Basophils # 0.06 (0-0.4) x10^3/uL Sodium 134 L (137-145) mmol/L Potassium 6.4 H* (3.5-5.1) mmol/L Chloride 107 (98-107) mmol/L Carbon Dioxide 18 L (22-30) mmol/L Anion Gap 15.2 H (5-15) MEQ/L BUN 38 H (9-20) mg/dL Creatinine 1.49 H (0.66-1.25) mg/dL Estimated GFR 48.6 ML/MIN Glucose 293 H (74-106) mg/dL Calcium 7.8 L (8.4-10.2) mg/dL Total Bilirubin 0.30 (0.2-1.3) mg/dL AST 28 (17-59) U/L ALT 19 (0-50) U/L Alkaline Phosphatase 61 (38-126) U/L Serum Total Protein 5.1 L (6.3-8.2) g/dL Albumin 2.2 L (3.5-5.0) g/dL Amylase 49 (30-110) U/L Lipase 28 (23-300) U/L Influenza Type A Ag NEGATIVE (NEGATIVE) Influenza Type B Ag NEGATIVE (NEGATIVE) RSV (PCR) NEGATIVE (NEGATIVE) SARS-CoV-2 (PCR) POSITIVE A (NEGATIVE) ABO Group Rh Factor Antibody Screen (NEGATIVE) Crossmatch (COMPATIBLE) 10/12/22 10/12/22 Range/Units 00:00 00:00 WBC (4.0-10.5) x10^3/uL RBC (4.1-5.6) x10^6/uL Hgb (12.5-18.0) g/dL Hct (42-50) % MCV (78-100) fL MCH (26-32) pg MCHC (32-36) g/dL RDW (11.5-14.0) % Plt Count (150-450) x10^3/uL MPV (7.5-11.0) fL Gran % (36.0-66.0) % Immature Gran % (Auto) (0.00-0.4) % Nucleat RBC Rel Count (0.00-0.1) % Eos # (Auto) (0-0.5) x10^3/uL Immature Gran # (Auto) (0.00-0.03) x10^3u/L Absolute Lymphs (auto) (1.0-4.6) x10^3/uL Absolute Monos (auto) (0.0-1.3) x10^3/uL Absolute Nucleated RBC (0.00-0.01) x10^3u/L Lymphocytes % (24.0-44.0) % Monocytes % (0.0-12.0) % Eosinophils % (0.00-5.0) % Basophils % (0.0-0.4) % Absolute Granulocytes (1.4-6.9) x10^3/uL Basophils # (0-0.4) x10^3/uL Sodium (137-145) mmol/L Potassium (3.5-5.1) mmol/L Chloride (98-107) mmol/L Carbon Dioxide (22-30) mmol/L Anion Gap (5-15) MEQ/L BUN (9-20) mg/dL Creatinine (0.66-1.25) mg/dL Estimated GFR ML/MIN Glucose (74-106) mg/dL Calcium (8.4-10.2) mg/dL Total Bilirubin (0.2-1.3) mg/dL AST (17-59) U/L ALT (0-50) U/L Alkaline Phosphatase (38-126) U/L Serum Total Protein (6.3-8.2) g/dL Albumin (3.5-5.0) g/dL Amylase (30-110) U/L Lipase (23-300) U/L Influenza Type A Ag (NEGATIVE) Influenza Type B Ag (NEGATIVE) RSV (PCR) (NEGATIVE) SARS-CoV-2 (PCR) (NEGATIVE) ABO Group O Rh Factor POSITIVE Antibody Screen NEGATIVE (NEGATIVE) Crossmatch COMPATIBLE COMPATIBLE (COMPATIBLE) Assessment/Plan (1) Symptomatic anemia Current Visit: Yes Status: Chronic Assessment & Plan: Acute on chronic blood loss anemia, acute on chronic gastrointestinal hemorrhage, symptomatic anemia: Recent endoscopy did not identify source of bleeding. Will transfuse 1 unit PRBC (requested by ED, pending administration. Oral PPI. Monitor counts. The entirety of this encounter was performed via telemedicine. The patient consented to this telemedicine encounter. Code(s): D64.9 - ANEMIA, UNSPECIFIED (2) COVID-19 virus infection Current Visit: No Status: Resolved Assessment & Plan: Persistently positive but no cough, hypoxia or fever. Isolation. Confirmatory testing is pending. Code(s): U07.1 - COVID-19 (3) Hyperkalemia Current Visit: Yes Status: Acute Assessment & Plan: Received Veltassa in ED. Will administer kayexalate. Monitor on tele. DVT Prophylaxis: SCDs Code status: DNR Code(s): E87.5 - HYPERKALEMIA (4) Diabetes mellitus type II, uncontrolled Current Visit: No Status: Chronic Qualifiers: Glycemic state: with hyperglycemia Qualified Code(s): E11.65 - Type 2 diabetes mellitus with hyperglycemia Assessment & Plan: Placed on ISS. Monitor sugars. Code(s): [id number] - Telemedicine Encounter - Telemedicine Encounter Telemedicine Encounter: The entirety of this encounter was performed via Telemedicine"
[2022-10-12 03:38] LABS: BINAX RAPID TEST RESULTS NEGATIVE (NEGATIVE)
[2022-10-12] MEDS: Sodium Chloride 0.9% 1000 ML 1,000 ML IV SCH ×2 (05:00→11:13)
[2022-10-12 09:29] LABS: Absolute Neutrophil Ct (ANC) 6.08 x10^3/uL (1.4-6.9); BASOPHIL % 0.9 % (0.0-0.4); Basophil (Absolute #) 0.08 x10^3/uL (0-0.4); Eosinophil % 0.7 % (0.00-5.0); Eosinophil (Absolute #) 0.06 x10^3/uL (0-0.5); Hematocrit 24.3 % (42-50); Hemoglobin 7.2 g/dL (12.5-18.0); IMMATURE GRAN # 0.12 x10^3u/L (0.00-0.03); IMMATURE GRAN % 1.3 % (0.00-0.4); Lymphocyte (Absolute #) 1.78 x10^3/uL (1.0-4.6); Lymphocytes % 19.6 % (24.0-44.0); Mean Cell Volume 94.2 fL (78-100); Mean Corpuscular Hemoglobin 27.9 pg (26-32); Mean Corpuscular Hgb Concent. 29.6 g/dL (32-36); Mean Platelet Volume 10.5 fL (7.5-11.0); Monocyte (Absolute #) 0.95 x10^3/uL (0.0-1.3); Monocytes % 10.5 % (0.0-12.0); Platelet Count 239 x10^3/uL (150-450); Red Blood Count 2.58 x10^6/uL (4.1-5.6); Red Cell Distribution Width 16.5 % (11.5-14.0); White Blood Count 9.1 x10^3/uL (4.0-10.5)
[2022-10-12] MEDS ORDERED: Protonix 40MG Tablet PO SCH (10:00)
[2022-10-12 10:10] LABS: ANION GAP 18.5 MEQ/L (5-15); BILIRUBIN,TOTAL 0.3 mg/dL (0.2-1.3); Calcium 8.1 mg/dL (8.4-10.2); Creatinine 1 1.61 mg/dL (0.66-1.25); EST GLOMERULAR FILTRATION RATE 44.5 ML/MIN; Potassium 5.3 mmol/L (3.5-5.1); Total Protein 4.7 g/dL (6.3-8.2)
[2022-10-12 11:23] VITALS: BP 100/58; PULSE 89; O2SAT 99
[2022-10-12] MEDS ORDERED: PROTONIX 40 MG IV*** 80 MG in Sodium Chloride 0.9% 500 ML 500 ML IV SCH (11:30)
--- NOTE | 2022-10-12 13:16 | PCM.DS ---
Discharge Summary Date of Admission: 10/12/22 02:33 Admitting Physician: PARISH SCHAFER MD Primary Care Provider: FALLON GARCIA Allergies Allergies No Known Drug Allergies Allergy (Verified 10/11/22 23:12) Hospital Summary - Hospital Course Hospital Course: Chief Complaint Diagnosis Symptomatic anemia Admission Date Date 10/12/22 Allergies Allergy/AdvReac Type Severity Reaction Status Date / Time No Known Drug Allergies Allergy Verified 10/11/22 23:12 Vital Signs (Last 24 hours) Temp Pulse Resp BP Pulse Ox 10/12/22 11:15 98.3 F 89 16 100/58 99 10/12/22 03:54 97.6 F 81 16 88/48 98 10/12/22 01:00 77 14 100/61 98 10/12/22 00:10 74 83/57 99 10/11/22 23:14 97.7 F 81 18 96/58 100 Current Medications Generic Name Dose Route Start Last Admin Trade Name Freq PRN Reason Stop Dose Admin Acetaminophen 650 mg 10/12/22 02:37 Acetaminophen 325 Mg Tablet PO 11/11/22 02:36 Q4H PRN PRN PAIN, FEVER, HEADACHE Docusate Sodium 100 mg 10/12/22 03:16 Docusate Sodium 100 Mg Capsule PO 11/11/22 03:15 BIDPRN PRN CONSTIPATION Sodium Chloride 1,000 mls @ 50 mls/hr 10/12/22 02:37 10/12/22 11:13 Sodium Chloride 0.9% 1000 Ml IV 11/11/22 02:36 50 mls/hr .Q20H THERESE Administration Pantoprazole Sodium 80 mg/ 500 mls @ 50 mls/hr 10/12/22 11:30 10/12/22 11:16 Sodium Chloride IV 11/11/22 11:29 50 ml/hr .Q10H THERESE 50 mls/hr Administration Insulin Human Lispro 0 unit 10/12/22 03:16 Insulin Lispro 1 Unit SQ 11/11/22 03:15 UD PRN HYPERGLYCEMIA Ondansetron HCl 4 mg 10/12/22 02:37 10/12/22 08:56 Ondansetron Hcl 4 Mg/2 Ml Vial IV 11/11/22 02:36 4 mg Q6H PRN PRN Administration NAUSEA/VOMITING Promethazine HCl 12.5 mg 10/12/22 03:16 Promethazine Hcl 25 Mg Tablet PO 11/11/22 03:15 Q6HPRN PRN NAUSEA/VOMITING Discontinued Medications Generic Name Dose Route Start Last Admin Trade Name Zoe PRN Reason Stop Dose Admin Calcium Gluconate 1,000 mg 10/12/22 01:23 10/12/22 01:46 Calcium Gluconate 1000 Mg/10 Ml Vial IV 10/12/22 01:24 1,000 mg STAT ONE Administration Calcium Gluconate Confirm 10/12/22 01:43 Calcium Gluconate 1000 Mg/10 Ml Vial Administered 10/12/22 01:44 Dose 1,000 mg IV .STK-MED ONE Furosemide 20 mg 10/12/22 01:21 10/12/22 01:25 Furosemide 20 Mg/Vial IV 10/12/22 01:22 20 mg STAT ONE Administration Furosemide Confirm 10/12/22 01:25 Furosemide 20 Mg/Vial Administered 10/12/22 01:26 Dose 20 mg .ROUTE .STK-MED ONE Sodium Chloride 1,000 mls @ 100 mls/hr 10/11/22 23:30 10/11/22 23:56 Sodium Chloride 0.9% 1000 Ml IV 11/10/22 23:29 100 mls/hr .Q10H THERESE Administration Sodium Chloride Confirm 10/11/22 23:55 Sodium Chloride 0.9% 1000 Ml Administered 10/11/22 23:56 Dose 1,000 mls @ ud .ROUTE .STK-MED ONE Insulin Human Regular 4 unit 10/12/22 01:24 10/12/22 01:45 Insulin Regular, Human 1 Unit IV 10/12/22 01:25 4 unit STAT ONE Administration Insulin Human Regular Confirm 10/12/22 01:44 Insulin Regular, Human 1 Unit Administered 10/12/22 01:45 Dose 4 unit .ROUTE .STK-MED ONE Pantoprazole Sodium 40 mg 10/12/22 10:00 10/12/22 11:20 Protonix (Pantoprazole) 40 Mg Tablet PO 11/11/22 09:59 Not Given DAILY THERESE Patiromer 16.8 gm 10/12/22 01:21 10/12/22 01:46 Patiromer Calcium Sorbitex 8.4 Gm Powd.Pack PO 10/12/22 01:22 16.8 gm STAT STA Administration Sodium Polystyrene Sulfonate 30 g 10/12/22 03:23 10/12/22 04:57 Sodium Polystyrene Sulfonate 15 G/60 Ml Bottle PO 10/12/22 03:24 30 g STAT ONE Administration Intake & Output (Last 24 hours) 10/10/22 10/11/22 10/12/22 10/13/22 11:59 11:59 11:59 11:59 Intake Total 120 120 Output Total 1 Balance 120 119 Weight 51.2 kg Laboratory Results (Last 24 hours) 10/12/22 10/12/22 10/12/22 11:40 09:00 09:00 WBC 9.1 RBC 2.58 L Hgb 7.2 L Hct 24.3 L MCV 94.2 MCH 27.9 MCHC 29.6 L RDW 16.5 H Plt Count 239 MPV 10.5 Gran % 67.0 H Immature Gran % (Auto) 1.3 H Nucleat RBC Rel Count 0.0 Eos # (Auto) 0.06 Immature Gran # (Auto) 0.12 H Absolute Lymphs (auto) 1.78 Absolute Monos (auto) 0.95 Absolute Nucleated RBC 0.00 Lymphocytes % 19.6 L Monocytes % 10.5 Eosinophils % 0.7 Basophils % 0.9 Absolute Granulocytes 6.08 Basophils # 0.08 Sodium 136 L Potassium 5.3 H Chloride 109 H Carbon Dioxide 14 L* Anion Gap 18.5 H BUN 55 H Creatinine 1.61 H Estimated GFR 44.5 Glucose 314 H POC Glucometer 329 H Calcium 8.1 L Total Bilirubin 0.30 AST 29 ALT 23 Alkaline Phosphatase 50 NT-Pro-B Natriuret Pep 703 Serum Total Protein 4.7 L Albumin 2.0 L Amylase Lipase Influenza Type A Ag Influenza Type B Ag RSV (PCR) SARS-CoV-2 (PCR) SARS-CoV-2 Ag (Rapid) ABO Group Rh Factor Antibody Screen Crossmatch 10/12/22 10/12/22 10/12/22 07:51 03:08 00:00 WBC RBC Hgb Hct MCV MCH MCHC RDW Plt Count MPV Gran % Immature Gran % (Auto) Nucleat RBC Rel Count Eos # (Auto) Immature Gran # (Auto) Absolute Lymphs (auto) Absolute Monos (auto) Absolute Nucleated RBC Lymphocytes % Monocytes % Eosinophils % Basophils % Absolute Granulocytes Basophils # Sodium Potassium Chloride Carbon Dioxide Anion Gap BUN Creatinine Estimated GFR Glucose POC Glucometer 234 H Calcium Total Bilirubin AST ALT Alkaline Phosphatase NT-Pro-B Natriuret Pep Serum Total Protein Albumin Amylase Lipase Influenza Type A Ag Influenza Type B Ag RSV (PCR) SARS-CoV-2 (PCR) SARS-CoV-2 Ag (Rapid) NEGATIVE A* ABO Group Rh Factor Antibody Screen Crossmatch COMPATIBLE 10/12/22 10/11/22 10/11/22 00:00 23:45 23:45 WBC RBC Hgb Hct MCV MCH MCHC RDW Plt Count MPV Gran % Immature Gran % (Auto) Nucleat RBC Rel Count Eos # (Auto) Immature Gran # (Auto) Absolute Lymphs (auto) Absolute Monos (auto) Absolute Nucleated RBC Lymphocytes % Monocytes % Eosinophils % Basophils % Absolute Granulocytes Basophils # Sodium 134 L Potassium 6.4 H* Chloride 107 Carbon Dioxide 18 L Anion Gap 15.2 H BUN 38 H Creatinine 1.49 H Estimated GFR 48.6 Glucose 293 H POC Glucometer Calcium 7.8 L Total Bilirubin 0.30 AST 28 ALT 19 Alkaline Phosphatase 61 NT-Pro-B Natriuret Pep Serum Total Protein 5.1 L Albumin 2.2 L Amylase 49 Lipase 28 Influenza Type A Ag NEGATIVE Influenza Type B Ag NEGATIVE RSV (PCR) NEGATIVE SARS-CoV-2 (PCR) POSITIVE A SARS-CoV-2 Ag (Rapid) ABO Group O Rh Factor POSITIVE Antibody Screen NEGATIVE Crossmatch COMPATIBLE 10/11/22 23:45 WBC 7.4 RBC 2.64 L Hgb 7.7 L Hct 25.9 L MCV 98.1 MCH 29.2 MCHC 29.7 L RDW 14.8 H Plt Count 297 MPV 10.2 Gran % 76.3 H Immature Gran % (Auto) 0.7 H Nucleat RBC Rel Count 0.0 Eos # (Auto) 0.05 Immature Gran # (Auto) 0.05 H Absolute Lymphs (auto) 1.02 Absolute Monos (auto) 0.58 Absolute Nucleated RBC 0.00 Lymphocytes % 13.7 L Monocytes % 7.8 Eosinophils % 0.7 Basophils % 0.8 Absolute Granulocytes 5.66 Basophils # 0.06 Sodium Potassium Chloride Carbon Dioxide Anion Gap BUN Creatinine Estimated GFR Glucose POC Glucometer Calcium Total Bilirubin AST ALT Alkaline Phosphatase NT-Pro-B Natriuret Pep Serum Total Protein Albumin Amylase Lipase Influenza Type A Ag Influenza Type B Ag RSV (PCR) SARS-CoV-2 (PCR) SARS-CoV-2 Ag (Rapid) ABO Group Rh Factor Antibody Screen Crossmatch Orders (Last 24 hours) Category Date Time Status Bedrest TOLERATED Activity 10/12/22 02:37 Active Up With Assistance TID Activity 10/12/22 03:16 Active Admit as Inpatient ROUTINE Care 10/12/22 02:37 Completed Code Status Order ROUTINE Care 10/12/22 02:37 Active Elevate HOB TOLERATED Care 10/12/22 02:37 Active IV Insertion STAT Care 10/11/22 23:16 Completed IV Insertion-2nd Peripheral ROUTINE Care 10/12/22 03:18 Completed Isolation, Initiate & Maintain Q4H Care 10/12/22 03:24 Completed Miscellaneous Nursing Order ROUTINE Care 10/12/22 10:50 Active Nursing [Miscellaneous Nursing Order] ROUTINE Care 10/12/22 02:37 Completed Nursing [Miscellaneous Nursing Order] ROUTINE Care 10/12/22 03:23 Completed POCT Glucose Check ACHS Care 10/12/22 03:[address] in Observation ROUTINE Care 10/12/22 02:33 Active Telemetry PROTOCOL Care 10/12/22 02:37 Active Weight,Daily 0600 Care 10/12/22 02:37 Active Infection Control Consult ROUTINE Cons 10/12/22 03:53 Active Consistent Carbohydrate Diet 2000 Calorie Diet 10/12/22 Breakfast Active Discharge Routine Discharge 10/12/22 Ordered AMYLASE Stat Lab 10/11/22 23:45 Completed BINAX RAPID TEST Routine Lab 10/12/22 03:08 Completed BLOOD COMPONENT REQUEST Stat Lab 10/12/22 Results BLOOD COMPONENT REQUEST Stat Lab 10/12/22 00:00 Completed CBC W DIFF AM.LAB Lab 10/12/22 09:00 Completed CBC W DIFF Stat Lab 10/11/22 23:45 Completed CMP AM.LAB Lab 10/12/22 09:00 Completed CMP Stat Lab 10/11/22 23:45 Completed COVID/FLU/RSV Panel Stat Lab 10/11/22 23:45 Completed LIPASE Stat Lab 10/11/22 23:45 Completed NT PRO BNPII AM.LAB Lab 10/12/22 09:00 Completed POCT GLUCOSE Stat Lab 10/12/22 07:51 Completed POCT GLUCOSE Stat Lab 10/12/22 11:40 Completed TYPE AND SCREEN Stat Lab 10/12/22 00:00 Completed UA W/RFX UR CULTURE Routine Lab 10/12/22 Ordered Acetaminophen 325 mg [Tylenol 325 mg] Med 10/12/22 02:37 Active 650 mg PO Q4H PRN PRN Calcium Gluconate 1000 mg [Calcium Gluconate 10% 1000 Med 10/12/22 01:43 Discontinued MG] 1,000 mg IV .STK-MED ONE Calcium Gluconate 1000 mg [Calcium Gluconate 10% 1000 Med 10/12/22 01:23 Discontinued MG] 1,000 mg IV STAT ONE Docusate Sodium 100 mg [Docusate Sodium 100 MG] Med 10/12/22 03:16 Active 100 mg PO BIDPRN PRN Furosemide 20 mg/2 ml [Lasix 20 MG/2 ML] Med 10/12/22 01:25 Discontinued 20 mg .ROUTE .STK-MED ONE Furosemide 20 mg/2 ml [Lasix 20 MG/2 ML] Med 10/12/22 01:21 Discontinued 20 mg IV STAT ONE Insulin Lispro [Humalog] Med 10/12/22 03:16 Active See Dose Instructions SQ UD PRN Insulin Regular, Human [Humulin R] Med 10/12/22 01:44 Discontinued 4 unit .ROUTE .STK-MED ONE Insulin Regular, Human [Humulin R] Med 10/12/22 01:24 Discontinued 4 unit IV STAT ONE NaCl 0.9% 1000 ml [Sodium Chloride 0.9% 1000 ML] 1,000 Med 10/11/22 23:55 Discontinued ml .ROUTE UD NaCl 0.9% 1000 ml [Sodium Chloride 0.9% 1000 ML] 1,000 Med 10/11/22 23:30 Discontinued ml IV 100 mls/hr NaCl 0.9% 1000 ml [Sodium Chloride 0.9% 1000 ML] 1,000 Med 10/12/22 02:37 Active ml IV 50 mls/hr NaCl 0.9% 500 ml [Sodium Chloride 0.9% 500 ML] 500 ml Med 10/12/22 11:30 Active Pantoprazole 40 mg [Protonix 40 mg IV] 80 mg IV 50 mls/hr Ondansetron HCl 4 mg/2 ml [Zofran 4 MG/2 ML VIAL] Med 10/12/22 02:37 Active 4 mg IV Q6H PRN PRN PANTOPRAZOLE 40 mg Tablet [Protonix 40MG Tablet] Med 10/12/22 10:00 Discontinued 40 mg PO DAILY Patiromer Calcium Sorbitex [Veltassa] Med 10/12/22 01:21 Discontinued 16.8 gm PO STAT STA Promethazine HCl 25 mg [Phenergan 25 mg] Med 10/12/22 03:16 Active 12.5 mg PO Q6HPRN PRN Sodium Polystyrene 15Gm/60 ml* [Kayexylate 15 GM/60 ML* Med 10/12/22 03:23 Discontinued ] 30 g PO STAT ONE PT Eval & Treat (MD Order) ONCE PT 10/12/22 03:16 Active Transfer Order Routine Transfer 10/12/22 Completed Patient Care Notes (Last 24 hours) 10/12/22 13:11 Nursing Note by Kendy Tanner report called to Jad fox at [facility]. Initialized on 10/12/22 13:11 - END OF NOTE 10/12/22 11:19 (created 10/12/22 11:22) Nursing Note by Lizeth Martins Faxed STAT request for medical records to [facility] as requested by Dr. Christopher Initialized on 10/12/22 11:22 - END OF NOTE 10/12/22 11:05 Nursing Note by ASH [facility] CALLED AND REQUESTED A BED FOR TRANSFER. SPOKE WITH A TAYLOR WHO WILL PAGE HOSPITALIST FOR ADMISSION. Initialized on 10/12/22 11:05 - END OF NOTE 10/12/22 10:50 (created 10/12/22 11:30) Nursing Note by Kendy Tanner consulted dr vann by phone of pt's admission at [facility] and current labs with treatments and pt's wish for treatment with hospice refusal. dr vann agrees that pt would be better off with hospice but as pt is refusing hospice at this time dr vann will follow pt at [facility] if we can get pt transferred there under a hospitalist. Initialized on 10/12/22 11:30 - END OF NOTE 10/12/22 10:45 (created 10/12/22 11:26) Nursing Note by Mooring,Kendy dr kelly updated by phone of pt's recent labs and wish for treatment with refusal of hospice, new orders for 2 units prbcs, change protonix to iv drip. also wanted to consult dr vann as he is pt's oncologist for possible transfer to [facility]. will also attempt to obtain records from as patient was just transferred there on 10/04/22. Initialized on 10/12/22 11:26 - END OF NOTE 10/12/22 05:39 Nursing Note by Candace Dickinson 0255 pt arrived to unit. Pt weak, SOB, c/o nausea. Pt requested use of bedside commode, Pt request oxygen. Pt had a bowel movement, increased weakness, B/P 88/48. Pt returned to bed. Pt required increased observation r/t weakness. 0340 Dr Schafer notified of pt arrival to unit 0400 Dr Schafer telehealth admission consultation. Initialized on 10/12/22 05:39 - END OF NOTE 10/12/22 03:50 Nursing Note by Candace Dickinson patient Binex test negative, isolation D/C'd per protocol Initialized on 10/12/22 03:50 - END OF NOTE - Vitals & Intake/Output Vital Signs: Vital Signs Temperature 98.3 F 10/12/22 11:15 Pulse Rate 89 10/12/22 11:15 Respiratory Rate 16 10/12/22 11:15 Blood Pressure 100/58 10/12/22 11:15 O2 Sat by Pulse Oximetry 99 10/12/22 11:15 Intake & Output: Intake & Output 10/10/22 10/11/22 10/12/22 10/13/22 11:59 11:59 11:59 11:59 Intake Total 120 120 Output Total 1 Balance 120 119 Weight 51.2 kg - Lab Result Diagrams: 10/12/22 09:00 10/12/22 09:00 Lab Results-Last 24 Hrs: Lab Results-Last 24 Hours 10/11/22 10/11/22 10/11/22 Range/Units 23:45 23:45 23:45 WBC 7.4 (4.0-10.5) x10^3/uL RBC 2.64 L (4.1-5.6) x10^6/uL Hgb 7.7 L (12.5-18.0) g/dL Hct 25.9 L (42-50) % MCV 98.1 (78-100) fL MCH 29.2 (26-32) pg MCHC 29.7 L (32-36) g/dL RDW 14.8 H (11.5-14.0) % Plt Count 297 (150-450) x10^3/uL MPV 10.2 (7.5-11.0) fL Gran % 76.3 H (36.0-66.0) % Immature Gran % (Auto) 0.7 H (0.00-0.4) % Nucleat RBC Rel Count 0.0 (0.00-0.1) % Eos # (Auto) 0.05 (0-0.5) x10^3/uL Immature Gran # (Auto) 0.05 H (0.00-0.03) x10^3u/L Absolute Lymphs (auto) 1.02 (1.0-4.6) x10^3/uL Absolute Monos (auto) 0.58 (0.0-1.3) x10^3/uL Absolute Nucleated RBC 0.00 (0.00-0.01) x10^3u/L Lymphocytes % 13.7 L (24.0-44.0) % Monocytes % 7.8 (0.0-12.0) % Eosinophils % 0.7 (0.00-5.0) % Basophils % 0.8 (0.0-0.4) % Absolute Granulocytes 5.66 (1.4-6.9) x10^3/uL Basophils # 0.06 (0-0.4) x10^3/uL Sodium 134 L (137-145) mmol/L Potassium 6.4 H* (3.5-5.1) mmol/L Chloride 107 (98-107) mmol/L Carbon Dioxide 18 L (22-30) mmol/L Anion Gap 15.2 H (5-15) MEQ/L BUN 38 H (9-20) mg/dL Creatinine 1.49 H (0.66-1.25) mg/dL Estimated GFR 48.6 ML/MIN Glucose 293 H (74-106) mg/dL POC Glucometer (74 to 106) mg/dL Calcium 7.8 L (8.4-10.2) mg/dL Total Bilirubin 0.30 (0.2-1.3) mg/dL AST 28 (17-59) U/L ALT 19 (0-50) U/L Alkaline Phosphatase 61 (38-126) U/L NT-Pro-B Natriuret Pep (<300) pg/mL Serum Total Protein 5.1 L (6.3-8.2) g/dL Albumin 2.2 L (3.5-5.0) g/dL Amylase 49 (30-110) U/L Lipase 28 (23-300) U/L Influenza Type A Ag NEGATIVE (NEGATIVE) Influenza Type B Ag NEGATIVE (NEGATIVE) RSV (PCR) NEGATIVE (NEGATIVE) SARS-CoV-2 (PCR) POSITIVE A (NEGATIVE) SARS-CoV-2 Ag (Rapid) (NEGATIVE) ABO Group Rh Factor Antibody Screen (NEGATIVE) Crossmatch (COMPATIBLE) 10/12/22 10/12/22 10/12/22 Range/Units 00:00 00:00 03:08 WBC (4.0-10.5) x10^3/uL RBC (4.1-5.6) x10^6/uL Hgb (12.5-18.0) g/dL Hct (42-50) % MCV (78-100) fL MCH (26-32) pg MCHC (32-36) g/dL RDW (11.5-14.0) % Plt Count (150-450) x10^3/uL MPV (7.5-11.0) fL Gran % (36.0-66.0) % Immature Gran % (Auto) (0.00-0.4) % Nucleat RBC Rel Count (0.00-0.1) % Eos # (Auto) (0-0.5) x10^3/uL Immature Gran # (Auto) (0.00-0.03) x10^3u/L Absolute Lymphs (auto) (1.0-4.6) x10^3/uL Absolute Monos (auto) (0.0-1.3) x10^3/uL Absolute Nucleated RBC (0.00-0.01) x10^3u/L Lymphocytes % (24.0-44.0) % Monocytes % (0.0-12.0) % Eosinophils % (0.00-5.0) % Basophils % (0.0-0.4) % Absolute Granulocytes (1.4-6.9) x10^3/uL Basophils # (0-0.4) x10^3/uL Sodium (137-145) mmol/L Potassium (3.5-5.1) mmol/L Chloride (98-107) mmol/L Carbon Dioxide (22-30) mmol/L Anion Gap (5-15) MEQ/L BUN (9-20) mg/dL Creatinine (0.66-1.25) mg/dL Estimated GFR ML/MIN Glucose (74-106) mg/dL POC Glucometer (74 to 106) mg/dL Calcium (8.4-10.2) mg/dL Total Bilirubin (0.2-1.3) mg/dL AST (17-59) U/L ALT (0-50) U/L Alkaline Phosphatase (38-126) U/L NT-Pro-B Natriuret Pep (<300) pg/mL Serum Total Protein (6.3-8.2) g/dL Albumin (3.5-5.0) g/dL Amylase (30-110) U/L Lipase (23-300) U/L Influenza Type A Ag (NEGATIVE) Influenza Type B Ag (NEGATIVE) RSV (PCR) (NEGATIVE) SARS-CoV-2 (PCR) (NEGATIVE) SARS-CoV-2 Ag (Rapid) NEGATIVE A* (NEGATIVE) ABO Group O Rh Factor POSITIVE Antibody Screen NEGATIVE (NEGATIVE) Crossmatch COMPATIBLE COMPATIBLE (COMPATIBLE) 10/12/22 10/12/22 10/12/22 Range/Units 07:51 09:00 09:00 WBC 9.1 (4.0-10.5) x10^3/uL RBC 2.58 L (4.1-5.6) x10^6/uL Hgb 7.2 L (12.5-18.0) g/dL Hct 24.3 L (42-50) % MCV 94.2 (78-100) fL MCH 27.9 (26-32) pg MCHC 29.6 L (32-36) g/dL RDW 16.5 H (11.5-14.0) % Plt Count 239 (150-450) x10^3/uL MPV 10.5 (7.5-11.0) fL Gran % 67.0 H (36.0-66.0) % Immature Gran % (Auto) 1.3 H (0.00-0.4) % Nucleat RBC Rel Count 0.0 (0.00-0.1) % Eos # (Auto) 0.06 (0-0.5) x10^3/uL Immature Gran # (Auto) 0.12 H (0.00-0.03) x10^3u/L Absolute Lymphs (auto) 1.78 (1.0-4.6) x10^3/uL Absolute Monos (auto) 0.95 (0.0-1.3) x10^3/uL Absolute Nucleated RBC 0.00 (0.00-0.01) x10^3u/L Lymphocytes % 19.6 L (24.0-44.0) % Monocytes % 10.5 (0.0-12.0) % Eosinophils % 0.7 (0.00-5.0) % Basophils % 0.9 (0.0-0.4) % Absolute Granulocytes 6.08 (1.4-6.9) x10^3/uL Basophils # 0.08 (0-0.4) x10^3/uL Sodium 136 L (137-145) mmol/L Potassium 5.3 H (3.5-5.1) mmol/L Chloride 109 H (98-107) mmol/L Carbon Dioxide 14 L* (22-30) mmol/L Anion Gap 18.5 H (5-15) MEQ/L BUN 55 H (9-20) mg/dL Creatinine 1.61 H (0.66-1.25) mg/dL Estimated GFR 44.5 ML/MIN Glucose 314 H (74-106) mg/dL POC Glucometer 234 H (74 to 106) mg/dL Calcium 8.1 L (8.4-10.2) mg/dL Total Bilirubin 0.30 (0.2-1.3) mg/dL AST 29 (17-59) U/L ALT 23 (0-50) U/L Alkaline Phosphatase 50 (38-126) U/L NT-Pro-B Natriuret Pep 703 (<300) pg/mL Serum Total Protein 4.7 L (6.3-8.2) g/dL Albumin 2.0 L (3.5-5.0) g/dL Amylase (30-110) U/L Lipase (23-300) U/L Influenza Type A Ag (NEGATIVE) Influenza Type B Ag (NEGATIVE) RSV (PCR) (NEGATIVE) SARS-CoV-2 (PCR) (NEGATIVE) SARS-CoV-2 Ag (Rapid) (NEGATIVE) ABO Group Rh Factor Antibody Screen (NEGATIVE) Crossmatch (COMPATIBLE) 10/12/22 10/12/22 Range/Units 11:40 Unknown WBC (4.0-10.5) x10^3/uL RBC (4.1-5.6) x10^6/uL Hgb (12.5-18.0) g/dL Hct (42-50) % MCV (78-100) fL MCH (26-32) pg MCHC (32-36) g/dL RDW (11.5-14.0) % Plt Count (150-450) x10^3/uL MPV (7.5-11.0) fL Gran % (36.0-66.0) % Immature Gran % (Auto) (0.00-0.4) % Nucleat RBC Rel Count (0.00-0.1) % Eos # (Auto) (0-0.5) x10^3/uL Immature Gran # (Auto) (0.00-0.03) x10^3u/L Absolute Lymphs (auto) (1.0-4.6) x10^3/uL Absolute Monos (auto) (0.0-1.3) x10^3/uL Absolute Nucleated RBC (0.00-0.01) x10^3u/L Lymphocytes % (24.0-44.0) % Monocytes % (0.0-12.0) % Eosinophils % (0.00-5.0) % Basophils % (0.0-0.4) % Absolute Granulocytes (1.4-6.9) x10^3/uL Basophils # (0-0.4) x10^3/uL Sodium (137-145) mmol/L Potassium (3.5-5.1) mmol/L Chloride (98-107) mmol/L Carbon Dioxide (22-30) mmol/L Anion Gap (5-15) MEQ/L BUN (9-20) mg/dL Creatinine (0.66-1.25) mg/dL Estimated GFR ML/MIN Glucose (74-106) mg/dL POC Glucometer 329 H (74 to 106) mg/dL Calcium (8.4-10.2) mg/dL Total Bilirubin (0.2-1.3) mg/dL AST (17-59) U/L ALT (0-50) U/L Alkaline Phosphatase (38-126) U/L NT-Pro-B Natriuret Pep (<300) pg/mL Serum Total Protein (6.3-8.2) g/dL Albumin (3.5-5.0) g/dL Amylase (30-110) U/L Lipase (23-300) U/L Influenza Type A Ag (NEGATIVE) Influenza Type B Ag (NEGATIVE) RSV (PCR) (NEGATIVE) SARS-CoV-2 (PCR) (NEGATIVE) SARS-CoV-2 Ag (Rapid) (NEGATIVE) ABO Group Rh Factor Antibody Screen (NEGATIVE) Crossmatch Pending (COMPATIBLE) Micro Results-Entire Visit: Accuchecks Date 10/12/22 Date 10/12/22 Time 09:24 - Procedures and Test Procedures and Tests throughout Hospitalization: Therapy Orders & Screens 10/12/22 03:16 PT Eval & Treat (MD Order) ONCE Reason for Eval:: FATIGUE, ASSESS FALL RISK Diagnosis: Symptomatic anemia Discharge Exam General Appearance: no apparent distress, alert Neurologic Exam: alert, oriented x 3, cooperative, normal mood/affect, nml cerebellar function, sensation nml, No motor deficits Eye Exam: PERRL, EOMI, eyes nml inspection Ears, Nose, Throat Exam: normal ENT inspection, pharynx normal, moist mucous membranes Neck Exam: normal inspection, non-tender, supple, full range of motion Respiratory Exam: normal breath sounds, lungs clear, No respiratory distress Cardiovascular Exam: regular rate/rhythm, normal heart sounds Gastrointestinal/Abdomen Exam: soft, No tenderness, No mass Male Genitalia Exam: deferred Rectal Exam: deferred Back Exam: normal inspection, normal range of motion, No CVA tenderness, No vertebral tenderness Extremity Exam: normal inspection, normal range of motion Skin Exam: normal color, warm, dry Final Diagnosis/Problem List - Final Discharge Diagnosis/Problem (1) GI bleed Current Visit: Yes Status: Acute Assessment & Plan: Chief Complaint Diagnosis Symptomatic anemia Admission Date Date 10/12/22 Allergies Allergy/AdvReac Type Severity Reaction Status Date / Time No Known Drug Allergies Allergy Verified 10/11/22 23:12 Vital Signs (Last 24 hours) Temp Pulse Resp BP Pulse Ox 10/12/22 11:15 98.3 F 89 16 100/58 99 10/12/22 03:54 97.6 F 81 16 88/48 98 10/12/22 01:00 77 14 100/61 98 10/12/22 00:10 74 83/57 99 10/11/22 23:14 97.7 F 81 18 96/58 100 Current Medications Generic Name Dose Route Start Last Admin Trade Name Freq PRN Reason Stop Dose Admin Acetaminophen 650 mg 10/12/22 02:37 Acetaminophen 325 Mg Tablet PO 11/11/22 02:36 Q4H PRN PRN PAIN, FEVER, HEADACHE Docusate Sodium 100 mg 10/12/22 03:16 Docusate Sodium 100 Mg Capsule PO 11/11/22 03:15 BIDPRN PRN CONSTIPATION Sodium Chloride 1,000 mls @ 50 mls/hr 10/12/22 02:37 10/12/22 11:13 Sodium Chloride 0.9% 1000 Ml IV 11/11/22 02:36 50 mls/hr .Q20H THERESE Administration Pantoprazole Sodium 80 mg/ 500 mls @ 50 mls/hr 10/12/22 11:30 10/12/22 11:16 Sodium Chloride IV 11/11/22 11:29 50 ml/hr .Q10H THERESE 50 mls/hr Administration Insulin Human Lispro 0 unit 10/12/22 03:16 Insulin Lispro 1 Unit SQ 11/11/22 03:15 UD PRN HYPERGLYCEMIA Ondansetron HCl 4 mg 10/12/22 02:37 10/12/22 08:56 Ondansetron Hcl 4 Mg/2 Ml Vial IV 11/11/22 02:36 4 mg Q6H PRN PRN Administration NAUSEA/VOMITING Promethazine HCl 12.5 mg 10/12/22 03:16 Promethazine Hcl 25 Mg Tablet PO 11/11/22 03:15 Q6HPRN PRN NAUSEA/VOMITING Discontinued Medications Generic Name Dose Route Start Last Admin Trade Name Freq PRN Reason Stop Dose Admin Calcium Gluconate 1,000 mg 10/12/22 01:23 10/12/22 01:46 Calcium Gluconate 1000 Mg/10 Ml Vial IV 10/12/22 01:24 1,000 mg STAT ONE Administration Calcium Gluconate Confirm 10/12/22 01:43 Calcium Gluconate 1000 Mg/10 Ml Vial Administered 10/12/22 01:44 Dose 1,000 mg IV .STK-MED ONE Furosemide 20 mg 10/12/22 01:21 10/12/22 01:25 Furosemide 20 Mg/Vial IV 10/12/22 01:22 20 mg STAT ONE Administration Furosemide Confirm 10/12/22 01:25 Furosemide 20 Mg/Vial Administered 10/12/22 01:26 Dose 20 mg .ROUTE .STK-MED ONE Sodium Chloride 1,000 mls @ 100 mls/hr 10/11/22 23:30 10/11/22 23:56 Sodium Chloride 0.9% 1000 Ml IV 11/10/22 23:29 100 mls/hr .Q10H THERESE Administration Sodium Chloride Confirm 10/11/22 23:55 Sodium Chloride 0.9% 1000 Ml Administered 10/11/22 23:56 Dose 1,000 mls @ ud .ROUTE .STK-MED ONE Insulin Human Regular 4 unit 10/12/22 01:24 10/12/22 01:45 Insulin Regular, Human 1 Unit IV 10/12/22 01:25 4 unit STAT ONE Administration Insulin Human Regular Confirm 10/12/22 01:44 Insulin Regular, Human 1 Unit Administered 10/12/22 01:45 Dose 4 unit .ROUTE .STK-MED ONE Pantoprazole Sodium 40 mg 10/12/22 10:00 10/12/22 11:20 Protonix (Pantoprazole) 40 Mg Tablet PO 11/11/22 09:59 Not Given DAILY THERESE Patiromer 16.8 gm 10/12/22 01:21 10/12/22 01:46 Patiromer Calcium Sorbitex 8.4 Gm Powd.Pack PO 10/12/22 01:22 16.8 gm STAT STA Administration Sodium Polystyrene Sulfonate 30 g 10/12/22 03:23 10/12/22 04:57 Sodium Polystyrene Sulfonate 15 G/60 Ml Bottle PO 10/12/22 03:24 30 g STAT ONE Administration Intake & Output (Last 24 hours) 10/10/22 10/11/22 10/12/22 10/13/22 11:59 11:59 11:59 11:59 Intake Total 120 120 Output Total 1 Balance 120 119 Weight 51.2 kg Laboratory Results (Last 24 hours) 10/12/22 10/12/22 10/12/22 11:40 09:00 09:00 WBC 9.1 RBC 2.58 L Hgb 7.2 L Hct 24.3 L MCV 94.2 MCH 27.9 MCHC 29.6 L RDW 16.5 H Plt Count 239 MPV 10.5 Gran % 67.0 H Immature Gran % (Auto) 1.3 H Nucleat RBC Rel Count 0.0 Eos # (Auto) 0.06 Immature Gran # (Auto) 0.12 H Absolute Lymphs (auto) 1.78 Absolute Monos (auto) 0.95 Absolute Nucleated RBC 0.00 Lymphocytes % 19.6 L Monocytes % 10.5 Eosinophils % 0.7 Basophils % 0.9 Absolute Granulocytes 6.08 Basophils # 0.08 Sodium 136 L Potassium 5.3 H Chloride 109 H Carbon Dioxide 14 L* Anion Gap 18.5 H BUN 55 H Creatinine 1.61 H Estimated GFR 44.5 Glucose 314 H POC Glucometer 329 H Calcium 8.1 L Total Bilirubin 0.30 AST 29 ALT 23 Alkaline Phosphatase 50 NT-Pro-B Natriuret Pep 703 Serum Total Protein 4.7 L Albumin 2.0 L Amylase Lipase Influenza Type A Ag Influenza Type B Ag RSV (PCR) SARS-CoV-2 (PCR) SARS-CoV-2 Ag (Rapid) ABO Group Rh Factor Antibody Screen Crossmatch 10/12/22 10/12/22 10/12/22 07:51 03:08 00:00 WBC RBC Hgb Hct MCV MCH MCHC RDW Plt Count MPV Gran % Immature Gran % (Auto) Nucleat RBC Rel Count Eos # (Auto) Immature Gran # (Auto) Absolute Lymphs (auto) Absolute Monos (auto) Absolute Nucleated RBC Lymphocytes % Monocytes % Eosinophils % Basophils % Absolute Granulocytes Basophils # Sodium Potassium Chloride Carbon Dioxide Anion Gap BUN Creatinine Estimated GFR Glucose POC Glucometer 234 H Calcium Total Bilirubin AST ALT Alkaline Phosphatase NT-Pro-B Natriuret Pep Serum Total Protein Albumin Amylase Lipase Influenza Type A Ag Influenza Type B Ag RSV (PCR) SARS-CoV-2 (PCR) SARS-CoV-2 Ag (Rapid) NEGATIVE A* ABO Group Rh Factor Antibody Screen Crossmatch COMPATIBLE 10/12/22 10/11/22 10/11/22 00:00 23:45 23:45 WBC RBC Hgb Hct MCV MCH MCHC RDW Plt Count MPV Gran % Immature Gran % (Auto) Nucleat RBC Rel Count Eos # (Auto) Immature Gran # (Auto) Absolute Lymphs (auto) Absolute Monos (auto) Absolute Nucleated RBC Lymphocytes % Monocytes % Eosinophils % Basophils % Absolute Granulocytes Basophils # Sodium 134 L Potassium 6.4 H* Chloride 107 Carbon Dioxide 18 L Anion Gap 15.2 H BUN 38 H Creatinine 1.49 H Estimated GFR 48.6 Glucose 293 H POC Glucometer Calcium 7.8 L Total Bilirubin 0.30 AST 28 ALT 19 Alkaline Phosphatase 61 NT-Pro-B Natriuret Pep Serum Total Protein 5.1 L Albumin 2.2 L Amylase 49 Lipase 28 Influenza Type A Ag NEGATIVE Influenza Type B Ag NEGATIVE RSV (PCR) NEGATIVE SARS-CoV-2 (PCR) POSITIVE A SARS-CoV-2 Ag (Rapid) ABO Group O Rh Factor POSITIVE Antibody Screen NEGATIVE Crossmatch COMPATIBLE 10/11/22 23:45 WBC 7.4 RBC 2.64 L Hgb 7.7 L Hct 25.9 L MCV 98.1 MCH 29.2 MCHC 29.7 L RDW 14.8 H Plt Count 297 MPV 10.2 Gran % 76.3 H Immature Gran % (Auto) 0.7 H Nucleat RBC Rel Count 0.0 Eos # (Auto) 0.05 Immature Gran # (Auto) 0.05 H Absolute Lymphs (auto) 1.02 Absolute Monos (auto) 0.58 Absolute Nucleated RBC 0.00 Lymphocytes % 13.7 L Monocytes % 7.8 Eosinophils % 0.7 Basophils % 0.8 Absolute Granulocytes 5.66 Basophils # 0.06 Sodium Potassium Chloride Carbon Dioxide Anion Gap BUN Creatinine Estimated GFR Glucose POC Glucometer Calcium Total Bilirubin AST ALT Alkaline Phosphatase NT-Pro-B Natriuret Pep Serum Total Protein Albumin Amylase Lipase Influenza Type A Ag Influenza Type B Ag RSV (PCR) SARS-CoV-2 (PCR) SARS-CoV-2 Ag (Rapid) ABO Group Rh Factor Antibody Screen Crossmatch Orders (Last 24 hours) Category Date Time Status Bedrest TOLERATED Activity 10/12/22 02:37 Active Up With Assistance TID Activity 10/12/22 03:16 Active Admit as Inpatient ROUTINE Care 10/12/22 02:37 Completed Code Status Order ROUTINE Care 10/12/22 02:37 Active Elevate HOB TOLERATED Care 10/12/22 02:37 Active IV Insertion STAT Care 10/11/22 23:16 Completed IV Insertion-2nd Peripheral ROUTINE Care 10/12/22 03:18 Completed Isolation, Initiate & Maintain Q4H Care 10/12/22 03:24 Completed Miscellaneous Nursing Order ROUTINE Care 10/12/22 10:50 Active Nursing [Miscellaneous Nursing Order] ROUTINE Care 10/12/22 02:37 Completed Nursing [Miscellaneous Nursing Order] ROUTINE Care 10/12/22 03:23 Completed POCT Glucose Check ACHS Care 10/12/22 03:[address] in Observation ROUTINE Care 10/12/22 02:33 Active Telemetry PROTOCOL Care 10/12/22 02:37 Active Weight,Daily 0600 Care 10/12/22 02:37 Active Infection Control Consult ROUTINE Cons 10/12/22 03:53 Active Consistent Carbohydrate Diet 2000 Calorie Diet 10/12/22 Breakfast Active Discharge Routine Discharge 10/12/22 Ordered AMYLASE Stat Lab 10/11/22 23:45 Completed BINAX RAPID TEST Routine Lab 10/12/22 03:08 Completed BLOOD COMPONENT REQUEST Stat Lab 10/12/22 Results BLOOD COMPONENT REQUEST Stat Lab 10/12/22 00:00 Completed CBC W DIFF AM.LAB Lab 10/12/22 09:00 Completed CBC W DIFF Stat Lab 10/11/22 23:45 Completed CMP AM.LAB Lab 10/12/22 09:00 Completed CMP Stat Lab 10/11/22 23:45 Completed COVID/FLU/RSV Panel Stat Lab 10/11/22 23:45 Completed LIPASE Stat Lab 10/11/22 23:45 Completed NT PRO BNPII AM.LAB Lab 10/12/22 09:00 Completed POCT GLUCOSE Stat Lab 10/12/22 07:51 Completed POCT GLUCOSE Stat Lab 10/12/22 11:40 Completed TYPE AND SCREEN Stat Lab 10/12/22 00:00 Completed UA W/RFX UR CULTURE Routine Lab 10/12/22 Ordered Acetaminophen 325 mg [Tylenol 325 mg] Med 10/12/22 02:37 Active 650 mg PO Q4H PRN PRN Calcium Gluconate 1000 mg [Calcium Gluconate 10% 1000 Med 10/12/22 01:43 Discontinued MG] 1,000 mg IV .STK-MED ONE Calcium Gluconate 1000 mg [Calcium Gluconate 10% 1000 Med 10/12/22 01:23 Discontinued MG] 1,000 mg IV STAT ONE Docusate Sodium 100 mg [Docusate Sodium 100 MG] Med 10/12/22 03:16 Active 100 mg PO BIDPRN PRN Furosemide 20 mg/2 ml [Lasix 20 MG/2 ML] Med 10/12/22 01:25 Discontinued 20 mg .ROUTE .STK-MED ONE Furosemide 20 mg/2 ml [Lasix 20 MG/2 ML] Med 10/12/22 01:21 Discontinued 20 mg IV STAT ONE Insulin Lispro [Humalog] Med 10/12/22 03:16 Active See Dose Instructions SQ UD PRN Insulin Regular, Human [Humulin R] Med 10/12/22 01:44 Discontinued 4 unit .ROUTE .K-MED ONE Insulin Regular, Human [Humulin R] Med 10/12/22 01:24 Discontinued 4 unit IV STAT ONE NaCl 0.9% 1000 ml [Sodium Chloride 0.9% 1000 ML] 1,000 Med 10/11/22 23:55 Discontinued ml .ROUTE UD NaCl 0.9% 1000 ml [Sodium Chloride 0.9% 1000 ML] 1,000 Med 10/11/22 23:30 Discontinued ml IV 100 mls/hr NaCl 0.9% 1000 ml [Sodium Chloride 0.9% 1000 ML] 1,000 Med 10/12/22 02:37 Active ml IV 50 mls/hr NaCl 0.9% 500 ml [Sodium Chloride 0.9% 500 ML] 500 ml Med 10/12/22 11:30 Active Pantoprazole 40 mg [Protonix 40 mg IV] 80 mg IV 50 mls/hr Ondansetron HCl 4 mg/2 ml [Zofran 4 MG/2 ML VIAL] Med 10/12/22 02:37 Active 4 mg IV Q6H PRN PRN PANTOPRAZOLE 40 mg Tablet [Protonix 40MG Tablet] Med 10/12/22 10:00 Discontinued 40 mg PO DAILY Patiromer Calcium Sorbitex [Veltassa] Med 10/12/22 01:21 Discontinued 16.8 gm PO STAT STA Promethazine HCl 25 mg [Phenergan 25 mg] Med 10/12/22 03:16 Active 12.5 mg PO Q6HPRN PRN Sodium Polystyrene 15Gm/60 ml* [Kayexylate 15 GM/60 ML* Med 10/12/22 03:23 Discontinued ] 30 g PO STAT ONE PT Eval & Treat (MD Order) ONCE PT 10/12/22 03:16 Active Transfer Order Routine Transfer 10/12/22 Completed Patient Care Notes (Last 24 hours) 10/12/22 13:11 Nursing Note by Kendy Tanner report called to Jad fox at [facility]. Initialized on 10/12/22 13:11 - END OF NOTE 10/12/22 12:00 (created 10/12/22 13:12) Case Management Note by Maida Christianson DR ROUNDED AND EVALUATED, DISCUSSED TX WITH PT, TALKED WITH HOSPITALIST AT [facility], PLAN TO TRANSFER TO HOSPITALIST AND DR VANN TO CONSULT. PT VERBALIZED UNDERSTANDING, AND IS AGREEABLE TO THIS PLAN. Initialized on 10/12/22 13:12 - END OF NOTE 10/12/22 11:19 (created 10/12/22 11:22) Nursing Note by Lizeth Martins Faxed STAT request for medical records to [facility] as requested by Dr. Christopher Initialized on 10/12/22 11:22 - END OF NOTE 10/12/22 11:05 Nursing Note by ASH SMITH [facility] CALLED AND REQUESTED A BED FOR TRANSFER. SPOKE WITH A TAYLOR WHO WILL PAGE HOSPITALIST FOR ADMISSION. Initialized on 10/12/22 11:05 - END OF NOTE 10/12/22 10:50 (created 10/12/22 11:30) Nursing Note by Kendy Tanner consulted dr vann by phone of pt's admission at [facility] and current labs with treatments and pt's wish for treatment with hospice refusal. dr vann agrees that pt would be better off with hospice but as pt is refusing hospice at this time dr vann will follow pt at [facility] if we can get pt transferred there under a hospitalist. Initialized on 10/12/22 11:30 - END OF NOTE 10/12/22 10:45 (created 10/12/22 11:26) Nursing Note by Kendy Tanner dr updated by phone of pt's recent labs and wish for treatment with refusal of hospice, new orders for 2 units prbcs, change protonix to iv drip. also wanted to consult dr vann as he is pt's oncologist for possible transfer to [facility]. will also attempt to obtain records from as patient was just transferred there on 10/04/22. Initialized on 10/12/22 11:26 - END OF NOTE 10/12/22 05:39 Nursing Note by Candace Dickinson 0255 pt arrived to unit. Pt weak, SOB, c/o nausea. Pt requested use of bedside commode, Pt request oxygen. Pt had a bowel movement, increased weakness, B/P 88/48. Pt returned to bed. Pt required increased observation r/t weakness. 0340 Dr Schafer notified of pt arrival to unit 0400 Dr Schafer telehealth admission consultation. Initialized on 10/12/22 05:39 - END OF NOTE 10/12/22 03:50 Nursing Note by Candace Dickinson patient Binex test negative, isolation D/C'd per protocol Initialized on 10/12/22 03:50 - END OF NOTE Code(s): K92.2 - GASTROINTESTINAL HEMORRHAGE, UNSPECIFIED (2) Hyperkalemia Current Visit: Yes Status: Resolved Code(s): E87.5 - HYPERKALEMIA (3) Symptomatic anemia Current Visit: Yes Status: Chronic Code(s): D64.9 - ANEMIA, UNSPECIFIED (4) Hx of malignant neoplasm of pancreas Current Visit: No Status: Chronic Code(s): Z85.07 - PERSONAL HISTORY OF MALIGNANT NEOPLASM OF PANCREAS (5) Blood transfusion during current hospitalisation Current Visit: No Status: Resolved Code(s): GOK9245 - - Discharge Discharge Date: 10/12/22 [facility] Condition: Stable Prescriptions: No Action Amlodipine Besylate [Norvasc] 5 mg PO BID Lipase/Protease/Amylase [Juarez Almendarez 6,000 Unit Capsule] 1 cap PO QID Glipizide 10 mg [Glucotrol 10 MG] 10 mg PO DAILY Levothyroxine Sodium 50 mcg PO DAILY Metformin HCl 500 mg [Glucophage 500 MG] 500 mg PO BIDWM Prednisone 10 mg [Deltasone 10 mg] 5 mg PO DAILY Albuterol 8 gm Mdi Hfa [Ventolin Hfa MDI] 2 puffs IH QID Pravastatin Sodium 20 mg PO DAILY Hydralazine HCl 10 mg PO TID Cholecalciferol (Vitamin D3) [Vitamin D3] 25 mcg PO DAILY Follow up with: FALLON GARCIA [Primary Care Provider] - LIAN VANN [COURTESY STAFF] -
[2022-10-12 13:44] LABS: CROSS MATCH (PRBC) COMPATIBLE (COMPATIBLE)
== END 2022-10-12 13:26 | disposition short-term general hospital (02) ==
LOC: ED 23:09 → INTOOBSV 10-12 02:33 → MED SURG 10-12 02:33
PROVIDERS: ADMIT Internal Medicine; ATTEND General Practice
DX: K92.2 Gastrointestinal hemorrhage, unspecified (principal); E87.5 Hyperkalemia; D64.9 Anemia, unspecified; U07.1 COVID-19; E78.5 Hyperlipidemia, unspecified; I10 Essential (primary) hypertension; E11.65 Type 2 diabetes mellitus with hyperglycemia; Z85.07 Personal history of malignant neoplasm of pancreas; Z79.899 Other long term (current) drug therapy; Z20.828 Contact with and (suspected) exposure to other viral communicable diseases
CPT/HCPCS: 0241U; 36000; 36415; 36430; 80053; 82150; 82947; 83690; 83880; 85025; 86850; 86900; 86901; 86922; 87811; 93005; 96374; 99285; 99291; P9016; 93268; J0612; J1815; J1940; J2405; A9270-GY; G0378